=== PATIENT | female | born 1935 | race Caucasian/White ===

== ENCOUNTER 2018-01-28 08:27 | Inpatient (IN) | payer MEDICARE, BC ==
[~2018-01-28] VITALS: Ht 182.9 cm; Wt 93.0 kg
[~2018-01-28 08:27] MED LIST: ATEN25TA PO; CALC-1198 PO; DOCU-141 PO; ESOM40CA52 PO; ESTR1VAG VG; ESZO3TAB27 PO; FURO-145 PO; GLUC1TAB PO; LATA2.5D2 EACHEYE; LOSA100T3 PO; LOSA50TA21 PO; MIRT15TA8 PO; MULT-1168 PO; POTA10TA11 PO; PSYL0.5211 PO; ROSU20TA PO; TRAM50TA2 PO; VENL25TA4 PO; WARF1TAB47 PO; WARF4TAB6 PO; myrbetriq PO
[2018-01-28 09:44] LABS: BASOPHILS # (AUTO) 0.1 /CMM (0.0-0.2); BASOPHILS % (AUTO) 0.5 % (0.0-2.0); EOSINOPHILS # (AUTO) 0.1 /CMM (0.0-0.7); EOSINOPHILS % (AUTO) 0.6 % (0.0-6.0); HEMATOCRIT 39 % (33-45); HEMOGLOBIN 13.4 g/dL (11.5-14.8); LYMPHOCYTES # (AUTO) 0.9 /CMM (0.8-4.8); LYMPHOCYTES % (AUTO) 8.2 % (20.0-44.0); MEAN CORPUSCULAR HEMOGLOBIN 32 PG (26.0-33.0); MEAN CORPUSCULAR HGB CONC 35 g/dl (31.0-36.0); MEAN CORPUSCULAR VOLUME 92 fL (82-100); MONOCYTES # (AUTO) 0.6 /CMM (0.1-1.30); MONOCYTES % (AUTO) 5.3 % (2.0-12.0); NEUTROPHILS # (AUTO) 8.8 /CMM (1.8-8.9); NEUTROPHILS % (AUTO) 85.4 % (43.0-81.0); PLATELET COUNT (AUTO) 157 /CMM (150-450); RDW COEFFICIENT OF VARIATION 13.2 (11.5-15.0); RED BLOOD CELL COUNT(AUTO) 4.21 MIL/uL (4.0-5.2); WHITE BLOOD COUNT (AUTO) 10.5 K/uL (4.3-11.0)
[2018-01-28 09:53] LABS: CALCIUM, SERUM 9.1 mg/dL (8.5-10.1); CARBON DIOXIDE 29 mmol/L (21-32); CHLORIDE 99 mmol/L (98-107); GLUCOSE 138 mg/dL (74-106); POTASSIUM 3.9 mmol/L (3.5-5.1); SODIUM SERUM 135 mmol/L (136-145); UREA NITROGEN, BLOOD 18 mg/dL (7-18)
[2018-01-28 09:58] LABS: INR 2.63 (0.85-1.15)
[2018-01-28 10:02] LABS: TROPONIN I 0.193 ng/mL (0.00-0.056)
[2018-01-28 10:16] LABS: APPEARANCE,URINE Cloudy (CLEAR); BILIRUBIN,URINE Negative (NEGATIVE); BLOOD, URINE Large Ery/uL (NEGATIVE); KETONES,URINE Negative (NEGATIVE); LEUKOCYTE ESTERASE ,URINE Moderate (NEGATIVE); NITRITE, URINE Negative (NEGATIVE); PROTEIN,URINE 100 mg/dl (NEGATIVE); UGLUCOSE Negative (NEGATIVE); UROBILINOGEN,URINE 0.2 EU/dL (0.2)
[2018-01-28 10:17] LABS: COLOR,URINE DARK RED (YELLOW)
[2018-01-28 10:22] LABS: BACTERIA,URINE Rare /HPF (None Seen); RBC,URINE TOO NUMEROUS TO COUN /HPF (0-2); WBC,URINE 81-100 /HPF (0-3)
[2018-01-28 10:23] LABS: SQUAMOUS EPITHELIAL CELL,UR Rare /HPF (None Seen)
[2018-01-28] MEDS ORDERED: ESOM40CA PO (11:11)
[2018-01-28] MEDS ORDERED: ATEN100T PO (11:11)
[2018-01-28] MEDS ORDERED: LAMO25TA5 PO (11:11)
[2018-01-28] MEDS ORDERED: WARF-58 PO (11:11)
[2018-01-28] MEDS ORDERED: DIGO125T PO (11:11)
[2018-01-28] MEDS ORDERED: ONDANSETRON HCL/PF 4 MG/2 ML VIAL IVP PRN (11:30)
[2018-01-28] MEDS ORDERED: MAG HYDROX/AL HYDROX/SIMETH 30 ML UDC PO PRN (11:30)
[2018-01-28] MEDS ORDERED: ACETAMINOPHEN 325 MG TABLET PO PRN (11:30)
[2018-01-28] MEDS ORDERED: HYDROCODONE/APAP 5/325MG 1 EACH TABLET PO PRN (11:30)
[2018-01-28] MEDS ORDERED: TRAMADOL HCL 50 MG TABLET PO PRN (11:30)
[2018-01-28] MEDS ORDERED: Z GUARD REMEDY 2 OZ OINT TP PRN (11:30)
[2018-01-28] MEDS ORDERED: ZOLPIDEM TARTRATE 5 MG TABLET PO PRN (11:30)
[2018-01-28] MEDS ORDERED: ESTRADIOL 1 UNIT VG SCH (11:30)
[2018-01-28] MEDS ORDERED: MAGNESIUM HYDROXIDE 30 ML UDC PO PRN (11:30)
[2018-01-28 12:00] VITALS: BP 136/95
[2018-01-28 12:15] VITALS: BP 136/95
[2018-01-28] MEDS: IV NS 0.9% 1,000 ML IV PRN (13:38)
[2018-01-28 16:00] VITALS: BP 120/80
[2018-01-28] MEDS ORDERED: WARFARIN SODIUM 1 MG TABLET PO SCH (17:00)
[2018-01-28] MEDS: LamoTRIgine 25 MG TABLET PO SCH (17:22)
[2018-01-28] MEDS: DOCUSATE SODIUM 100 MG CAPSULE PO SCH (17:22)
[2018-01-28 20:00] VITALS: BP_SYST 135; BP_SYST 139; BP_SYST 143; BP_SYST 147; BP_DIAS 79; BP_DIAS 90; BP_DIAS 94; BP_DIAS 96
[2018-01-28] MEDS ORDERED: MIRTAZAPINE SOLUTAB 15 MG/UDTABLET TAB.RAPDIS PO SCH (22:00)
[2018-01-29] VITALS: BP 157/80
[2018-01-29 04:00] VITALS: BP 157/93
[2018-01-29 04:38] VITALS: BP 157/93
[2018-01-29] MEDS: IV NS 0.9% 1,000 ML IV PRN (06:30)
[2018-01-29 07:14] LABS: INR 2.42 (0.87-1.13)
[2018-01-29 07:21] LABS: ALANINE AMINOTRANSFERASE 21 U/L (12-78); ALBUMIN 3.2 g/dL (3.4-5.0); ALKALINE PHOSPHATASE 70 U/L (46-116); ASPARTATE AMINOTRANSFERASE 23 U/L (15-37); BILIRUBIN,TOTAL 0.8 mg/dL (0.2-1.0); CALCIUM, SERUM 8.6 mg/dL (8.5-10.1); CARBON DIOXIDE 32 mmol/L (21-32); CHLORIDE 99 mmol/L (98-107); CREATININE 0.7 mg/dL (0.6-1.3); GLUCOSE 115 mg/dL (74-106); MAGNESIUM 1.7 mg/dL (1.8-2.4); PHOSPHORUS 2.4 mg/dL (2.5-4.9); POTASSIUM 3.7 mmol/L (3.5-5.1); SODIUM SERUM 139 mmol/L (136-145); TOTAL PROTEIN, SERUM 6.8 g/dL (6.4-8.2); UREA NITROGEN, BLOOD 17 mg/dL (7-18)
[2018-01-29 07:28] LABS: TROPONIN I 0.104 ng/mL (0.00-0.056)
[2018-01-29] MEDS ORDERED: PANTOPRAZOLE 40 MG TABLET.DR PO SCH (07:30)
[2018-01-29 07:56] LABS: BASOPHILS % (AUTO) 0.2 % (0.0-2.0); EOSINOPHILS # (AUTO) 0.1 /CMM (0.0-0.7); EOSINOPHILS % (AUTO) 0.9 % (0.0-6.0); HEMATOCRIT 35 % (33-45); LYMPHOCYTES # (AUTO) 0.8 /CMM (0.8-4.8); LYMPHOCYTES % (AUTO) 10.7 % (20.0-44.0); MEAN CORPUSCULAR HEMOGLOBIN 32 PG (26.0-33.0); MEAN CORPUSCULAR HGB CONC 34 g/dl (31.0-36.0); MEAN CORPUSCULAR VOLUME 93 fL (82-100); MONOCYTES # (AUTO) 0.5 /CMM (0.1-1.30); MONOCYTES % (AUTO) 6.8 % (2.0-12.0); NEUTROPHILS # (AUTO) 6.2 /CMM (1.8-8.9); NEUTROPHILS % (AUTO) 81.4 % (43.0-81.0); PLATELET COUNT (AUTO) 128 /CMM (150-450); RDW COEFFICIENT OF VARIATION 14.5 (11.5-15.0); RED BLOOD CELL COUNT(AUTO) 3.77 MIL/uL (4.0-5.2); WHITE BLOOD COUNT (AUTO) 7.6 K/uL (4.3-11.0)
[2018-01-29 08:00] VITALS: BP 134/94
[2018-01-29] MEDS ORDERED: Magnesium 1GM/D5W 100ML PREMIX 100 ML IV SCH ×2 (08:09→09:45)
[2018-01-29 08:28] VITALS: BP 134/94
[2018-01-29] MEDS: DOCUSATE SODIUM 100 MG CAPSULE PO SCH (08:43)
[2018-01-29 08:44] VITALS: BP 134/94
[2018-01-29] MEDS: LamoTRIgine 25 MG TABLET PO SCH (08:44)
[2018-01-29] MEDS ORDERED: ASPIRIN 325 MG TABLET PO SCH (09:00)
[2018-01-29] MEDS ORDERED: ATENOLOL 50 MG TABLET PO SCH (09:00)
[2018-01-29] MEDS ORDERED: LATANOPROST EYE DROP 0.005% 2.5 ML BOTTLE EACHEYE SCH (09:00)
[2018-01-29] MEDS ORDERED: K PHOS NEUTRAL 250 MG TABLET PO ONE (09:00)
[2018-01-29] MEDS ORDERED: MAGNESIUM OXIDE 400 MG TABLET PO ONE (09:00)
[2018-01-29] MEDS ORDERED: VENLAFAXINE 25 MG TABLET PO SCH (09:00)
[2018-01-29] MEDS ORDERED: CEPH-570 PO (12:21)
[2018-01-29] MEDS ORDERED: ASPI-605 PO (12:27)
[2018-01-29] MEDS ORDERED: DIGOXIN 0.125 MG TABLET PO SCH (13:00)
[2018-01-29] MEDS ORDERED: ATORVASTATIN 40 MG TABLET PO SCH (22:00)
== END 2018-01-29 13:45 | disposition home or self-care (01) | DRG 689 ==
LOC: ER 08:28 → TELE 11:56 → MED 01-29 10:45
PROVIDERS: ADMIT Internal Medicine; ATTEND Internal Medicine
DX: N39.0 Urinary tract infection, site not specified (principal); I21.A1 Myocardial infarction type 2; N17.9 Acute kidney failure, unspecified; I27.20 Pulmonary hypertension, unspecified; E83.42 Hypomagnesemia; E44.1 Mild protein-calorie malnutrition; I48.91 Unspecified atrial fibrillation; E86.1 Hypovolemia; E87.1 Hypo-osmolality and hyponatremia; W01.0XXA Fall on same level from slipping, tripping and stumbling without subsequent striking against object, initial encounter; E78.5 Hyperlipidemia, unspecified; F03.90 Unspecified dementia, unspecified severity, without behavioral disturbance, psychotic disturbance, mood disturbance, and anxiety; R55 Syncope and collapse; F41.9 Anxiety disorder, unspecified; Z86.73 Personal history of transient ischemic attack (TIA), and cerebral infarction without residual deficits; Z79.01 Long term (current) use of anticoagulants; Y95 Nosocomial condition; F32.9 Major depressive disorder, single episode, unspecified; I10 Essential (primary) hypertension; N32.81 Overactive bladder; Z79.899 Other long term (current) drug therapy; M19.90 Unspecified osteoarthritis, unspecified site; I70.0 Atherosclerosis of aorta; I34.0 Nonrheumatic mitral (valve) insufficiency; M85.80 Other specified disorders of bone density and structure, unspecified site; R26.9 Unspecified abnormalities of gait and mobility; Y93.9 Activity, unspecified; Y92.009 Unspecified place in unspecified non-institutional (private) residence as the place of occurrence of the external cause
CPT/HCPCS: 36415; 70450-TC; 71045-TC; 72110-TC; 73564-TC; 80048-TC; 80053-TC; 81000-TC; 83735-TC; 84100-TC; 84484-TC; 85025-TC; 85610-TC; 85730-TC; 87081-TC; 87086-TC; 93307-TC; A4606; J3475; J7030; Z7610

== ENCOUNTER 2019-06-30 20:30 | Inpatient (IN) | payer MEDICARE, BC ==
[~2019-06-30] VITALS: Ht 182.9 cm; Wt 87.1 kg
[~2019-06-30 20:30] MED LIST changes: +ASPI-605 PO; +ATEN100T PO; -ATEN25TA PO; -CALC-1198 PO; +CEPH-570 PO; +DIGO125T PO; +ESOM40CA PO; -ESOM40CA52 PO; -ESZO3TAB27 PO; -GLUC1TAB PO; +LAMO25TA5 PO; -LOSA100T3 PO; -LOSA50TA21 PO; +LOSA50TA39 PO; +MIRT-73 PO; -MIRT15TA8 PO; -MULT-1168 PO; -PSYL0.5211 PO; -ROSU20TA PO; +ROSU20TA2 PO; +WARF-58 PO; -WARF4TAB6 PO
--- NOTE | 2019-06-30 20:30 | NUR ---
BIB CAREGIVER FROM HOME C/O L SIDED CP RATIATING TO BACK AND L SHOULDER X1 WEEK. PT SIGNED OUT AMA FROM [facility] WITH (+) TROPONIN 1 WEEK AGO. SKI WARM, NONDIAPHORETIC. PT AAOX4 NO ACUTE DISTRESS NOTED, RESP EVEN AND UNLABORED. PLACE PT ON CARDIAC MONITORING, CONTINUOUS POX. ER MD AT BEDSIDE TO EVAL PT WITH ORDERS RECEIVED. WILL CARRY OUT ORDERS.
[2019-06-30] MEDS ORDERED: ASPIRIN 81 MG TAB.CHEW ONE (20:47)
[2019-06-30] MEDS ORDERED: NITROGLYCERIN PACKET 1 GM PACKET ONE (20:47)
--- NOTE | 2019-06-30 20:50 | NUR ---
PT MEDICATED ORDERED.
[2019-06-30 20:54] LABS: BASOPHILS % (AUTO) 0.4 % (0.0-2.0); HEMATOCRIT 35 % (33-45); HEMOGLOBIN 11.9 g/dL (11.5-14.8); LYMPHOCYTES # (AUTO) 1.1 /CMM (0.8-4.8); LYMPHOCYTES % (AUTO) 15.7 % (20.0-44.0); MEAN CORPUSCULAR HGB CONC 34 g/dl (31.0-36.0); MEAN CORPUSCULAR VOLUME 95 fL (82-100); MONOCYTES # (AUTO) 0.5 /CMM (0.1-1.30); MONOCYTES % (AUTO) 7.5 % (2.0-12.0); NEUTROPHILS # (AUTO) 4.7 /CMM (1.8-8.9); NEUTROPHILS % (AUTO) 66.4 % (43.0-81.0); PLATELET COUNT (AUTO) 184 /CMM (150-450); RED BLOOD CELL COUNT(AUTO) 3.72 MIL/uL (4.0-5.2); WHITE BLOOD COUNT (AUTO) 7.2 K/uL (4.3-11.0)
--- NOTE | 2019-06-30 20:54 | NUR ---
PER CAREGIVER, PT WENT AMA FROM [facility] FOR S/P FALL AND +TROPONIN
[2019-06-30] MEDS ORDERED: NITROGLYCERIN PACKET 1 GM PACKET TD ONE (21:00)
[2019-06-30] MEDS ORDERED: ASPIRIN 81 MG TAB.CHEW PO ONE (21:00)
[2019-06-30] MEDS ORDERED: ASPI-1169 PO (21:01)
[2019-06-30] MEDS ORDERED: ISOS10TA2 PO (21:01)
[2019-06-30] MEDS ORDERED: HYDR-4384 PO (21:01)
[2019-06-30] MEDS ORDERED: BENA10TA11 PO (21:01)
[2019-06-30 21:02] LABS: CALCIUM, SERUM 9.4 mg/dL (8.5-10.1); CHLORIDE 99 mmol/L (98-107); CREATININE 0.8 mg/dL (0.6-1.3); GLUCOSE 113 mg/dL (74-106); POTASSIUM 3.8 mmol/L (3.5-5.1); SODIUM SERUM 143 mmol/L (136-145); UREA NITROGEN, BLOOD 15 mg/dL (7-18)
[2019-06-30 21:08] LABS: ALANINE AMINOTRANSFERASE 25 U/L (12-78); ALBUMIN 3.4 g/dL (3.4-5.0); ALKALINE PHOSPHATASE 100 U/L (46-116); ASPARTATE AMINOTRANSFERASE 26 U/L (15-37); BILIRUBIN,DIRECT 0.2 mg/dL (0.0-0.2); BILIRUBIN,TOTAL 0.6 mg/dL (0.2-1.0); TOTAL PROTEIN, SERUM 7.2 g/dL (6.4-8.2)
[2019-06-30 21:14] LABS: CARBON DIOXIDE 40 mmol/L (21-32)
--- NOTE | 2019-06-30 21:59 | NUR ---
REPORT GIVEN TO MILY SPENCER FOR JAVIER PT WILL BE TRANSPORTED TO 3RD FLOOR VIA ACLS PROTOCOL
[2019-06-30] MEDS ORDERED: ZOLPIDEM TARTRATE 5 MG TABLET PO PRN (22:00)
[2019-06-30] MEDS ORDERED: ONDANSETRON HCL/PF 4 MG/2 ML VIAL IVP PRN (22:00)
[2019-06-30] MEDS ORDERED: HYDROCODONE/APAP 10/325MG 1 EA TABLET PO PRN (22:00)
[2019-06-30] MEDS ORDERED: ACETAMINOPHEN 325 MG TABLET PO PRN (22:00)
[2019-06-30] MEDS ORDERED: HYDROCODONE/APAP 5/325MG 1 EACH TABLET PO PRN (22:00)
[2019-06-30] MEDS ORDERED: MORPHINE SULFATE INJ 2 MG/ML DISP.SYRIN IV PRN (22:00)
[2019-06-30] MEDS ORDERED: MAG HYDROX/AL HYDROX/SIMETH 30 ML UDC PO PRN (22:00)
[2019-06-30] MEDS ORDERED: MAGNESIUM HYDROXIDE 30 ML UDC PO PRN (22:00)
[2019-06-30] MEDS ORDERED: Z GUARD REMEDY 2 OZ OINT TP PRN (22:00)
[2019-06-30 22:10] VITALS: BP 132/61
[2019-06-30 22:30] VITALS: BP 132/61
--- NOTE | 2019-06-30 22:45 | NUR ---
RN NOTES PM SHIFT ADMITTED PATIENT FROM ED DUE TO CHEST PAIN, RADIATING TO LEFT SHOULDER X1 WEEK. ALERT AND ORIENTED X3, WITH FORGETFULNESS, ON 2LPM VIA NC, LUNGS ON AUSCULTATION HAS DIMINISHED LUNG SOUNDS, CHEST PAIN OF 6/10, RECEIVED ASA 81 MG PO AND NITROBID IN ED WITHOUT RELIEF. PATIENT IS CALM, NOT IN APPARENT DISTRESS, NO SOB, ABLE TO TALK IN FULL SENTENCES. PER CAREGIVER/DTR IN LAW, PATIENT HAD MULTIPLE FALLS AT HOME, HAD BACK OF HEAD ABRASION, NO FRACTURES, WITH RIGHT HIP BRUISE AND LEFT ELBOW BRUISE, BOTH RESOLVING, UNSTEADY GAIT, AMBULATES USING ONE POINT CANE. SKIN ASSESSMENT PERFORMED, EDUCATED ON FALL PRECAUTION, AND TO CALL FOR ASSISTANCE WHEN USING THE BEDSIDE COMMODE. PERSONAL BELONGINGS AND CALL LIGHT WITHIN REACH.
[2019-06-30] MEDS ORDERED: MIRTAZAPINE SOLUTAB 15 MG/UDTABLET TAB.RAPDIS PO SCH (23:00)
[2019-06-30] MEDS: MIRTAZAPINE 15 MG TABLET PO SCH (23:36)
[2019-07-01] VITALS: BP 157/83
--- NOTE | 2019-07-01 02:21 | NUR ---
RN NOTES PATIENT REQUESTING PAIN MEDICATION, OFFERED MORPHINE, PATIENT AGREED, TOOK OUT MORPHINE THEN PATIENT CHANGED MIND, WANTS TO TRY NORCO FIRST. WHILE TAKING MORPHINE, RN ERRONEOUSLY PUT 0.5 DOSE INSTEAD OF 1 MG. WASTED MORPHINE WITH JOHANNA ANTUNEZ
[2019-07-01 04:00] VITALS: BP 143/85
--- NOTE | 2019-07-01 04:22 | NUR ---
RN NOTES PATIENT REFUSED ZOSYN TO CONTINUE INFUSING, PER PATIENT, IF RN DID NOT REMOVE IV, PATIENT WILL PULL OUT IV. ZOSYN INFUSION DISCONTINUED. INFUSED AMOUNT 25 ML Addendum: 07/01/19 at 0424 by UMER NIETO RN PLEASE DISREGARD ABOVE NOTES, NOT FOR PATIENT
[2019-07-01] MEDS: POTASSIUM CHLORIDE 10 MEQ TABLET.SA PO SCH ×2 (06:17→16:53)
--- NOTE | 2019-07-01 06:31 | NUR ---
RN NOTES, PM SHIFT PATIENT IS ALERT AND ORIENTED X3, FORGETFUL, 2LPM VIA NC, COMPLAINING OF CHEST PAIN, WITH MODERATE RELIEF WITH NORCO. ASSISTED TO BSC, UNSTEADY GAIT, FALL PRECAUTION, FOR CARDIAC CONSULT WITH DR. LUND IN AM, SERIAL TROPONIN, WITH VAUES TRENDING DOWN.
--- NOTE | 2019-07-01 07:47 | NUR ---
STAFF COMMAND AND CONTROL OFFICER OPENING NOTES RECEIVED PT AWAKE IN BED IN NO ACUTE SIGNS OF DISTRESS. A/O X3. VERBALLY RESPONSIVE WITH C/O MILD AND TOLERABLE CHEST PAIN. ON 02 VIA N/C @ 2LPM, BREATHING EVEN AND UNLABORED. ON TELEMONITORING WITH CURRENT READING OF AFIB WITH HR ON THE 70'S. IV ACCESS ON RAC G#2O INTACT, PATENT AND FLUSHES WELL. SAFETY MEASURES IN PLACE. BED LOW AND LOCKED. SIDE RAILS UP X2. CALL LIGHT WITHIN REACH. WILL CONTINUE TO MONITOR PT ACCORDINGLY.
[2019-07-01 07:50] LABS: BASOPHILS % (AUTO) 0.6 % (0.0-2.0); EOSINOPHILS % (AUTO) 14.1 % (0.0-6.0); HEMATOCRIT 33 % (33-45); HEMOGLOBIN 11.3 g/dL (11.5-14.8); LYMPHOCYTES # (AUTO) 1.2 /CMM (0.8-4.8); LYMPHOCYTES % (AUTO) 19.8 % (20.0-44.0); MEAN CORPUSCULAR HGB CONC 34 g/dl (31.0-36.0); MEAN CORPUSCULAR VOLUME 95 fL (82-100); MONOCYTES # (AUTO) 0.5 /CMM (0.1-1.30); MONOCYTES % (AUTO) 8.4 % (2.0-12.0); NEUTROPHILS # (AUTO) 3.5 /CMM (1.8-8.9); NEUTROPHILS % (AUTO) 57.1 % (43.0-81.0); PLATELET COUNT (AUTO) 151 /CMM (150-450); RED BLOOD CELL COUNT(AUTO) 3.53 MIL/uL (4.0-5.2); WHITE BLOOD COUNT (AUTO) 6.2 K/uL (4.3-11.0)
[2019-07-01 08:00] VITALS: BP 139/73
[2019-07-01 08:02] LABS: ALANINE AMINOTRANSFERASE 24 U/L (12-78); ALBUMIN 3.1 g/dL (3.4-5.0); ALKALINE PHOSPHATASE 78 U/L (46-116); ASPARTATE AMINOTRANSFERASE 23 U/L (15-37); BILIRUBIN,TOTAL 0.6 mg/dL (0.2-1.0); CALCIUM, SERUM 9.1 mg/dL (8.5-10.1); CARBON DIOXIDE 36 mmol/L (21-32); CHLORIDE 100 mmol/L (98-107); CREATININE 0.7 mg/dL (0.6-1.3); GLUCOSE 91 mg/dL (74-106); MAGNESIUM 1.8 mg/dL (1.8-2.4); PHOSPHORUS 3.6 mg/dL (2.5-4.9); POTASSIUM 3.6 mmol/L (3.5-5.1); SODIUM SERUM 140 mmol/L (136-145); TOTAL PROTEIN, SERUM 6.6 g/dL (6.4-8.2); UREA NITROGEN, BLOOD 16 mg/dL (7-18)
[2019-07-01 08:04] LABS: CHOLESTEROL 104 mg/dL (<200); HDL CHOLESTEROL 44 mg/dL (40-60); LDL 53 mg/dL (0-99); THYROID STIMULATING HORMONE 1.106 uIU/mL (0.358-3.74); TRIGLYCERIDES 68 mg/dL (30-150)
[2019-07-01] MEDS: PANTOPRAZOLE 40 MG TABLET.DR PO SCH (08:49)
[2019-07-01] MEDS ORDERED: ASPIRIN 81 MG TAB.CHEW PO SCH (09:00)
[2019-07-01] MEDS ORDERED: BENAZEPRIL HCL 10 MG TABLET PO SCH (09:00)
[2019-07-01] MEDS ORDERED: Medication Not On Formulary EA (Esomeprazole Mag Trihydrate (Nexium) 40 MG) PO SCH (09:00)
[2019-07-01] MEDS: DOCUSATE SODIUM 100 MG CAPSULE PO SCH ×2 (10:16→16:53)
[2019-07-01] MEDS: ISOSORBIDE DINITRATE (10MG) 10 MG TABLET PO SCH ×2 (10:17→16:53)
[2019-07-01] MEDS: VENLAFAXINE 37.5 MG TABLET PO SCH (10:18)
[2019-07-01] MEDS: ATENOLOL 50 MG TABLET PO SCH (10:19)
[2019-07-01] MEDS: LamoTRIgine 25 MG TABLET PO SCH ×2 (10:19→16:53)
[2019-07-01 10:37] LABS: IRON, SERUM 53 ug/dl (50-175); TOTAL IRON BINDING CAPACITY 305 ug/dl (250-450)
[2019-07-01 10:40] LABS: FERRITIN 127 ng/mL (8-388)
[2019-07-01] MEDS: FUROSEMIDE 20 MG TABLET PO SCH (10:49)
--- NOTE | 2019-07-01 11:56 | NUR ---
RN NOTES PATIENT FOR CT ANGIO HEART WITH 3D IMAGE TODAY, MD EXPLAINED PROCEDURE TO PATIENT AND VERBALIZED UNDERSTANDING. CONSENT SIGNED AND FILED ON CHART.
[2019-07-01 12:00] VITALS: BP 142/78
[2019-07-01] MEDS ORDERED: IOHEXOL-350 100 ML VIAL IV ONE ×2 (14:47→15:40)
[2019-07-01] MEDS ORDERED: IV NS 0.9% 250 ML IV ONE ×2 (14:47→15:40)
[2019-07-01] MEDS ORDERED: CT SWABBABLE VALVE TRANS SET 1 EA INFUS.SET MC ONE ×2 (14:47→15:40)
--- NOTE | 2019-07-01 14:58 | NUR ---
RN NOTES PATIENT BROUGHT DOWN VIA BED TO RADIOLOGY FOR CTA.
[2019-07-01] MEDS ORDERED: METOPROLOL TARTRATE INJ 5 MG/5 ML AMPUL ONE (15:13)
[2019-07-01 16:00] VITALS: BP 137/74
--- NOTE | 2019-07-01 16:40 | NUR ---
RN NOTES PT RETURNED FROM CTA, NO SIGNS OF DISTRESS NOTED. WILL CONTINUE TO MONITOR.
[2019-07-01] MEDS ORDERED: WARFARIN SODIUM 7.5 MG TABLET PO SCH (17:00)
--- NOTE | 2019-07-01 18:32 | NUR ---
SCALPER OPERATOR CLOSING NOTES PATIENT AWAKE AND RESTING IN BED, HEAD OF THE BED ELEVATED. A/O X3. ABLE TO MAKE NEEDS KNOWN. ON 02 VIA N/C @ 2LPM, BREATHING EVEN AND UNLABORED. IV ACCESS ON RAC G#2O INTACT, PATENT AND FLUSHES WELL. SAFETY MEASURES IN PLACE. BED LOW AND LOCKED. SIDE RAILS UP X2. CALL LIGHT WITHIN REACH. ALL NEEDS AND CARE ATTENDED WELL. WILL ENDORSED TO GUT CARRIER NURSE FOR JAVIER.
--- NOTE | 2019-07-01 19:25 | NUR ---
RN OPEN NOTES RECEIVED PATIENT AWAKE IN BED. A/OX3. NO SIGNS OF DISTRESS OR DISCOMFORT. BREATHING EVEN AND UNLABORED. ON 2LPM O2 VIA NC. ON TELE MONITORING WITH AFIB 75 NOTED. IV ACCESS IN LAC AND RAC, PATENT AND INTACT, NO SIGNS OF REDNESS OR INFILTRATION. BED IN LOW LOCKED POSITION WITH SIDE RAILS X3. CALL LIGHT WITHIN REACH. WILL CONTINUE TO MONITOR.
[2019-07-01 20:45] VITALS: BP 118/64
[2019-07-01] MEDS: LATANOPROST EYE DROP 0.005% 2.5 ML BOTTLE EACHEYE SCH (22:00)
[2019-07-01] MEDS: ATORVASTATIN 10 MG TABLET PO SCH (22:20)
[2019-07-01] MEDS: MIRTAZAPINE 15 MG TABLET PO SCH (22:20)
[2019-07-02 00:36] VITALS: BP 148/80
[2019-07-02 04:00] VITALS: BP 149/78
--- NOTE | 2019-07-02 07:20 | NUR ---
SHED BOSS OPENING NOTES RECEIVED PT IN BED, AWAKE, A/O X3. PT TOLERATING RA, WITH NO ACUTE RESPIRATORY DISTRESS NOTED. ON TELEMONITORING CONTROLLED AFIB 92 HR. PT DENIES ANY PAIN OR DISCOMFORT AT THIS TIME. PT ALSO DENIES ANY QUESTIONS OR CONCERN. PIV RAC G20 SL AND LAC G20 SL, FLUSHED WITH NS, INTACT AND OPERATIONAL. PT KEPT COMFORTABLE. PT'S BED IN LOWEST, LOCKED POSITION SR X3. CALL LIGHT KEPT WITHIN REACH. WILL CONTINUE PLAN OF CARE.
--- NOTE | 2019-07-02 07:37 | NUR ---
RN CLOSING NOTES PATIENT AWAKE IN BED. A/OX3. NO SIGNS OF DISTRESS OR DISCOMFORT. BREATHING EVEN AND UNLABORED. ON 2LPM O2 VIA NC. ON TELE MONITORING WITH AFIB 79 NOTED. IV ACCESS IN LAC AND RAC, PATENT AND INTACT, NO SIGNS OF REDNESS OR INFILTRATION. ALL NEEDS MET. NO SIGNIFICANT CHANGES THROUGH THE NIGHT. BED IN LOW LOCKED POSITION WITH SIDE RAILS X3. CALL LIGHT WITHIN REACH. ENDORSED TO AM SHIFT FOR JAVIER.
[2019-07-02 08:00] VITALS: BP 140/85
[2019-07-02] MEDS: POTASSIUM CHLORIDE 10 MEQ TABLET.SA PO SCH ×2 (08:05→16:22)
[2019-07-02] MEDS: DOCUSATE SODIUM 100 MG CAPSULE PO SCH ×2 (08:05→16:23)
[2019-07-02] MEDS: PANTOPRAZOLE 40 MG TABLET.DR PO SCH (08:05)
[2019-07-02] MEDS: LamoTRIgine 25 MG TABLET PO SCH ×2 (08:05→16:23)
[2019-07-02] MEDS: FUROSEMIDE 20 MG TABLET PO SCH (08:06)
[2019-07-02] MEDS: VENLAFAXINE 37.5 MG TABLET PO SCH (08:06)
[2019-07-02] MEDS: ATENOLOL 50 MG TABLET PO SCH (08:09)
[2019-07-02] MEDS: ISOSORBIDE DINITRATE (10MG) 10 MG TABLET PO SCH ×2 (08:10→16:22)
[2019-07-02] MEDS ORDERED: BENAZEPRIL HCL 10 MG TABLET PO SCH (09:00)
[2019-07-02] MEDS ORDERED: DIGOXIN 0.125 MG TABLET PO SCH (13:00)
[2019-07-02 16:00] VITALS: BP 123/84
[2019-07-02] MEDS ORDERED: WARFARIN SODIUM 5 MG TABLET PO SCH (17:00)
--- NOTE | 2019-07-02 18:30 | NUR ---
MS RN CLOSING NOTES PT IN BED, AWAKE, A/O X3. PT ON SUPPLEMENTARY OXYGEN AT 2L VIA NC, WITH NO ACUTE RESPIRATORY DISTRESS NOTED. PT DENIES ANY PAIN OR DISCOMFORT AT THIS TIME. ALL NEEDS AND CARE ATTENDED. PIV RAC G20 SL AND LAC G20 SL, FLUSHED WITH NS, INTACT AND OPERATIONAL. PT KEPT COMFORTABLE. PT'S BED IN LOWEST, LOCKED POSITION SR X3. CALL LIGHT KEPT WITHIN REACH. WILL ENDORSE TO INCOMING SHIFT FOR JAVIER AND PLAN OF TRANSFER TO [facility].
--- NOTE | 2019-07-02 19:30 | NUR ---
RN MS OPENING NOTES RECEIVED PATIENT IN BED AWAKE, ALERT AND ORIENTED X3, VERBALLY RESPONSIVE, ABLE TO MAKE NEEDS KNOWN. BREATHING EVEN AND UNLABORED. NO SOB NOTED. ON 2LPM VIA NC. DENIES ANY PAIN OR DISCOMFORT. NO CHEST PAIN. NO N/V. IV ON RIGHT AND LEFT AC INTACT AND PATENT. SKIN DRY WARM TO TOUCH. AFEBRILE. ALL OTHER NEEDS ATTENDED TO. SAFETY MEASURES IN PLACE. CALL LIGHT WITHIN REACH. ANTICIPATING TRANSFER TO [facility] FOR CARDIAC CATH. WILL CONTINUE TO MONITOR.
[2019-07-02 20:31] VITALS: BP 124/70
--- NOTE | 2019-07-02 20:46 | NUR ---
RN MS NOTES ATTEMPTED TO GIVE REPORT TO RECEIVING NURSE AT [place] BUT CURRENTLY UNAVAILABLE DUE TO NURSE ATTENDING TO PATIENT. INSTRUCTED TO CALL BACK IN ABOUT 10-15 MINUTES.
--- NOTE | 2019-07-02 21:08 | NUR ---
RN MS NOTES 2ND ATTEMPT TO GIVE REPORT TO RECEIVING NURSE AT [place] BUT CURRENTLY UNAVAILABLE DUE TO NURSE STILL ATTENDING TO A PATIENT. GAVE [facility]S NUMBER INSTEAD AND INSTRUCTED THEM TO CALL ME WHEN READY FOR REPORT. ETA FOR PICK IS [phone]
--- NOTE | 2019-07-02 21:16 | NUR ---
RN MS NOTES GAVE REPORT TO JOHANNA KENNY AT [facility].
[2019-07-02] MEDS: LATANOPROST EYE DROP 0.005% 2.5 ML BOTTLE EACHEYE SCH (21:29)
[2019-07-02] MEDS: ATORVASTATIN 10 MG TABLET PO SCH (21:31)
[2019-07-02] MEDS: MIRTAZAPINE 15 MG TABLET PO SCH (21:31)
--- NOTE | 2019-07-02 22:16 | NUR ---
RN MS DISCHARGE NOTES PATIENT DISCHARGED/TRANSFERRED TO [facility] AT [facility]16 FOR CARDIAC CATH. VSS. PATIENT IS ALERT AND ORIENTED X3, VERBALLY RESPONSIVE, ABLE TO MAKE NEEDS KNOWN. BREATHING EVEN AND UNLABORED. NO SOB NOTED. ON 2LPM VIA NC. DENIES ANY PAIN OR DISCOMFORT. NO CHEST PAIN. NO N/V. IV ON BOTH RIGHT AC AND LEFT AC REMAINS INTACT AND PATENT AND WILL STAY PER INSTRUCTIONS FROM RECEIVING NURSE AT [facility]. SKIN KEPT CLEAN AND DRY. PICTURES TAKEN AND PLACED IN CHART. NO NEW SKIN ISSUES NOTED. ALL BELONGINGS ACCOUNTED FOR, WITH INVENTORY LIST SIGNED AND PLACED IN CHART. DISCHARGE INSTRUCTIONS GIVEN TO PATIENT AND DAUGHTER IN LAW (TONY) WITH ALL DISCHARGE AND TRANSFER PAPERWORKS SIGNED BY PATIENT. HOME MEDS SENT HOME WITH DAUGHTER IN LAW. ALL OTHER NEEDS ATTENDED TO. PATIENT LEFT IN STABLE CONDITION. WILL BE GOING TO ROOM 105 AT [facility]. RECEIVING NURSE IS JOHANNA KENNY.
== END 2019-07-02 22:10 | disposition short-term general hospital (02) | DRG 311 ==
LOC: ER 20:34 → TELE 21:32 → MED 07-02 12:26
PROVIDERS: ADMIT Nurse Practitioner Acute Care; ATTEND Internal Medicine
DX: I24.0 Acute coronary thrombosis not resulting in myocardial infarction (principal); D68.59 Other primary thrombophilia; R73.9 Hyperglycemia, unspecified; N32.81 Overactive bladder; F32.9 Major depressive disorder, single episode, unspecified; Z86.73 Personal history of transient ischemic attack (TIA), and cerebral infarction without residual deficits; I10 Essential (primary) hypertension; Z91.19 Patient's noncompliance with other medical treatment and regimen; Z79.01 Long term (current) use of anticoagulants; I48.2 Chronic atrial fibrillation
CPT/HCPCS: 36415; 71045-TC; 75574; 80048-TC; 80053-TC; 80061-TC; 80076-TC; 80162-TC; 82728-TC; 83540-TC; 83735-TC; 84100-TC; 84443-TC; 84484-TC; 85025-TC; 85610-TC; 85730-TC; 87081-TC; 93307-TC; A6253; G0378; J2270; J3490; J7050; Q9967

== ENCOUNTER 2019-11-10 10:47 | Inpatient (IN) | payer MEDICARE, BC ==
[~2019-11-10] VITALS: Ht 182.9 cm; Wt 83.9 kg
[~2019-11-10 10:47] MED LIST changes: +ASPI-1169 PO; -ASPI-605 PO; +BENA10TA74 PO; -CEPH-570 PO; +HYDR-4384 PO; +ISOS10TA2 PO; -LOSA50TA39 PO; -TRAM50TA2 PO
[2019-11-10 11:27] LABS: BASOPHILS # (AUTO) 0.1 /CMM (0.0-0.2); BASOPHILS % (AUTO) 0.9 % (0.0-2.0); EOSINOPHILS % (AUTO) 1.9 % (0.0-6.0); HEMATOCRIT 36 % (33-45); HEMOGLOBIN 11.7 g/dL (11.5-14.8); LYMPHOCYTES # (AUTO) 1.2 /CMM (0.8-4.8); LYMPHOCYTES % (AUTO) 13.9 % (20.0-44.0); MEAN CORPUSCULAR HGB CONC 33 g/dl (31.0-36.0); MEAN CORPUSCULAR VOLUME 95 fL (82-100); MONOCYTES # (AUTO) 0.6 /CMM (0.1-1.30); MONOCYTES % (AUTO) 7.5 % (2.0-12.0); NEUTROPHILS # (AUTO) 6.5 /CMM (1.8-8.9); NEUTROPHILS % (AUTO) 75.8 % (43.0-81.0); PLATELET COUNT (AUTO) 138 /CMM (150-450); RED BLOOD CELL COUNT(AUTO) 3.77 MIL/uL (4.0-5.2); WHITE BLOOD COUNT (AUTO) 8.5 K/uL (4.3-11.0)
--- NOTE | 2019-11-10 11:32 | NUR ---
wheeled patient via rney for ct scan
[2019-11-10 11:47] LABS: ALANINE AMINOTRANSFERASE 25 U/L (12-78); ALBUMIN 3.4 g/dL (3.4-5.0); ALKALINE PHOSPHATASE 85 U/L (46-116); ASPARTATE AMINOTRANSFERASE 31 U/L (15-37); BILIRUBIN,DIRECT 0.1 mg/dL (0.0-0.2); BILIRUBIN,TOTAL 0.5 mg/dL (0.2-1.0); CALCIUM, SERUM 9.6 mg/dL (8.5-10.1); CARBON DIOXIDE 36 mmol/L (21-32); CHLORIDE 101 mmol/L (98-107); CREATININE 0.8 mg/dL (0.6-1.3); GLUCOSE 107 mg/dL (74-106); POTASSIUM 4.4 mmol/L (3.5-5.1); SODIUM SERUM 141 mmol/L (136-145); TOTAL PROTEIN, SERUM 7.1 g/dL (6.4-8.2); UREA NITROGEN, BLOOD 19 mg/dL (7-18)
--- NOTE | 2019-11-10 11:49 | NUR ---
patient came back from CT
--- NOTE | 2019-11-10 12:32 | NUR ---
urine collected and sent to lab
[2019-11-10 12:35] LABS: APPEARANCE,URINE Turbid (CLEAR); BILIRUBIN,URINE SMALL (NEGATIVE); BLOOD, URINE Large Ery/uL (NEGATIVE); COLOR,URINE Red (YELLOW); KETONES,URINE Negative (NEGATIVE); LEUKOCYTE ESTERASE ,URINE Large (NEGATIVE); NITRITE, URINE Negative (NEGATIVE); PH,URINE 8.5 (5.0-8.0); PROTEIN,URINE 100 mg/dl (NEGATIVE); UGLUCOSE Negative (NEGATIVE); UROBILINOGEN,URINE 0.2 EU/dL (0.2)
--- NOTE | 2019-11-10 12:54 | NUR ---
Dr. Rodriguez at bedside and spoke to the patient in regards with CT result. Will continue to monitor accordingly.
--- NOTE | 2019-11-10 12:58 | NUR ---
CALLED [facility], LIANET MERCADO PAGED
[2019-11-10 12:59] LABS: RBC,URINE TOO NUMEROUS TO COUN /HPF (0-2); WBC,URINE 51-80 /HPF (0-3)
[2019-11-10 13:00] LABS: BACTERIA,URINE None seen /HPF (None Seen); RED BLOOD CELL CASTS,URINE Moderate /LPF (None Seen); SQUAMOUS EPITHELIAL CELL,UR None Seen /HPF (None Seen)
--- NOTE | 2019-11-10 13:07 | NUR ---
CALLED [facility], PAGED HARMAN CARBONE FOR ADMISSION
--- NOTE | 2019-11-10 13:21 | NUR ---
CALLED NURSING SUP FOR MEDSURG BED
[2019-11-10] MEDS ORDERED: CALC1WAF4 PO (13:30)
[2019-11-10] MEDS ORDERED: OMEG1CAP PO (13:30)
[2019-11-10] MEDS ORDERED: POLY17PO4 PO (13:30)
[2019-11-10] MEDS ORDERED: PSYL1PAC8 PO (13:30)
[2019-11-10] MEDS ORDERED: CEFTRIAXONE 1GM BAG (ER ONLY) 1 GM/50 ML PIGGYBACK IV ONE (13:30)
[2019-11-10] MEDS ORDERED: GLUC1TAB PO (13:30)
[2019-11-10] MEDS ORDERED: MULT-1160 PO (13:30)
[2019-11-10] MEDS ORDERED: CHOL200026 PO (13:30)
[2019-11-10] MEDS ORDERED: BIOSIL PO (13:30)
[2019-11-10] MEDS ORDERED: NITR0.4T48 SL (13:30)
[2019-11-10] MEDS ORDERED: TRAM50TA2 PO (13:30)
--- NOTE | 2019-11-10 13:30 | NUR ---
CALLED [facility], PAGED LIANET MERCADO
--- NOTE | 2019-11-10 13:34 | NUR ---
CALLED [facility], PAGED RAF
[2019-11-10] MEDS ORDERED: CEFTRIAXONE 1GM BAG (ER ONLY) 50 ML IV ONE (13:41)
--- NOTE | 2019-11-10 14:16 | NUR ---
205-1 [facility]
--- NOTE | 2019-11-10 14:21 | NUR ---
report given to Bhavesh SPENCER for choco.
--- NOTE | 2019-11-10 14:35 | NUR ---
Received patient awake alert and oriented x3, family member at bedside. Patient able to walk to bathroom with assistance. IV line to the left AC g20 infusing Rocephin.Patient on 2l o2 via nasal canula (pt uses at home also). Breathing unlabored and even. No distress noted,denies pain. Skin inspected , and intact. Patient has b/l foot edema (refused pictures). Patient oriented to room and unit, educated to use call light. Patient verbalized understanding. Late lunch provided. Patient comfortable placed in bed, b/l leg offloaded. Admitting orders received. Will continue to monitor.
--- NOTE | 2019-11-10 14:38 | NUR ---
wheeled patient via gurney going to [facility]. RN at bedside to assume care.
[2019-11-10] MEDS ORDERED: IV NS 0.9% 1,000 ML IV PRN (14:44)
[2019-11-10] MEDS ORDERED: MAGNESIUM HYDROXIDE 30 ML UDC PO PRN (15:00)
[2019-11-10] MEDS ORDERED: MAG HYDROX/AL HYDROX/SIMETH 30 ML UDC PO PRN (15:00)
[2019-11-10] MEDS ORDERED: ACETAMINOPHEN 325 MG TABLET PO PRN (15:00)
[2019-11-10] MEDS ORDERED: MORPHINE SULFATE INJ 2 MG/ML DISP.SYRIN IV PRN (15:00)
[2019-11-10] MEDS ORDERED: HYDROCODONE/APAP 5/325MG 1 EACH TABLET PO PRN (15:00)
[2019-11-10] MEDS ORDERED: ONDANSETRON HCL/PF 4 MG/2 ML VIAL IVP PRN (15:00)
[2019-11-10] MEDS ORDERED: Z GUARD REMEDY 2 OZ OINT TP PRN (15:00)
[2019-11-10 16:00] VITALS: BP 140/87
--- NOTE | 2019-11-10 16:18 | NUR ---
Paged admitting YACHT MASTER Sunny for med recon be done.
--- NOTE | 2019-11-10 19:05 | NUR ---
Patient resting in bed. All needs attended. Will endorse to next shift for JAVIER
--- NOTE | 2019-11-10 19:10 | NUR ---
MS RN OPENING NOTES Received patient A/O x 4, awake on bed, on RA, no s/sx of discomfort noted at this time. Discussed with patient the POC for the night, informed patient MD is aware of her medication list per AM RN, still for med recon. Kept on bed clean, dry and comfortable. Call light within easy reach. On fall and aspiration precautions. Will continue to monitor accordingly.
[2019-11-10 20:00] VITALS: BP 147/72
[2019-11-10] MEDS: ZOLPIDEM TARTRATE 5 MG TABLET PO PRN (21:00)
--- NOTE | 2019-11-10 21:15 | NUR ---
MS RN NOTES Patient requested for sleeping pill, administered as ordered. Educated patient on the importance of maintaining oral hydration, offered cranberry juice and ensure water within easy reach. Patient verbalized understanding. Patient refused IVF at this time. Will continue to monitor accordingly.
[2019-11-11 06:19] LABS: BASOPHILS % (AUTO) 0.3 % (0.0-2.0); EOSINOPHILS % (AUTO) 2.2 % (0.0-6.0); HEMATOCRIT 34 % (33-45); HEMOGLOBIN 11.3 g/dL (11.5-14.8); LYMPHOCYTES # (AUTO) 1.9 /CMM (0.8-4.8); LYMPHOCYTES % (AUTO) 21.9 % (20.0-44.0); MEAN CORPUSCULAR HGB CONC 33 g/dl (31.0-36.0); MEAN CORPUSCULAR VOLUME 93 fL (82-100); MONOCYTES # (AUTO) 0.7 /CMM (0.1-1.30); MONOCYTES % (AUTO) 8.3 % (2.0-12.0); NEUTROPHILS # (AUTO) 5.8 /CMM (1.8-8.9); NEUTROPHILS % (AUTO) 67.3 % (43.0-81.0); PLATELET COUNT (AUTO) 140 /CMM (150-450); RED BLOOD CELL COUNT(AUTO) 3.65 MIL/uL (4.0-5.2); WHITE BLOOD COUNT (AUTO) 8.6 K/uL (4.3-11.0)
[2019-11-11 06:29] LABS: ALBUMIN 3.2 g/dL (3.4-5.0); BILIRUBIN,TOTAL 0.6 mg/dL (0.2-1.0); CALCIUM, SERUM 9.2 mg/dL (8.5-10.1); CREATININE 0.7 mg/dL (0.6-1.3); MAGNESIUM 1.8 mg/dL (1.8-2.4); PHOSPHORUS 3.2 mg/dL (2.5-4.9); TOTAL PROTEIN, SERUM 6.7 g/dL (6.4-8.2)
--- NOTE | 2019-11-11 06:42 | NUR ---
MS RN CLOSING NOTES Patient asleep, easily awaken. On RA, no SOB/respiratory stress noted. No complaints of pain at this time. Due meds given as ordered. All nursing needs attended. On fall and aspiration precautions. Endorsed to the next shift.
[2019-11-11 06:47] LABS: THYROID STIMULATING HORMONE 1.812 uIU/mL (0.358-3.74)
[2019-11-11 08:00] VITALS: BP 140/72
--- NOTE | 2019-11-11 08:00 | NUR ---
MS RN OPENING NOTES Received patient A/O x 4, awake on bed, on RA, no s/sx of discomfort noted at this time. Informed patient MD is aware of her medication list med recon needed to be done.Kept on bed clean, dry and comfortable. Call light within easy reach. On fall and aspiration precautions. Will continue to monitor accordingly. Seen by Dr Perkins and Dr Bowser.Ambulated with PT using FWW.Notified Dr Bowser with P.T ambulating pt using FWW tolerating well with O2. Pt is very eager to go home.
--- NOTE | 2019-11-11 14:00 | NUR ---
PT REFUSED TO BE CONNECTED TO HER IV PUMP DUE TO KEEPS ON BEEPING -PT KEEPS BENDING HER ARM AND FORGETS SHE HAS IV PUMP.
[2019-11-11] MEDS: CEFTRIAXONE 1 G in IV D5W 50 ML IV SCH (14:03)
--- NOTE | 2019-11-11 14:30 | NUR ---
INSTRUCTED PT TO KEEP DRINKING LOTS OF FLUIDS. PT AGREED.
[2019-11-11 16:00] VITALS: BP 136/89
--- NOTE | 2019-11-11 18:14 | NUR ---
PT REFUSED TO BE CONNECTED WITH HER IVF INFUSION OF NS INSPITE OF EXPLAINING ITS RISKS AND BENEFITS.
--- NOTE | 2019-11-11 19:15 | NUR ---
MS RN OPENING NOTES Received patient on bed on RA, no s/sx of discomfort noted at this time. Kept on bed clean, dry and comfortable. Call light within easy reach. On fall and aspiration precautions. Will continue to monitor accordingly.
[2019-11-11 20:13] VITALS: BP 149/90
[2019-11-11] MEDS ORDERED: TRAMADOL HCL 50 MG TABLET PO PRN (21:00)
[2019-11-11] MEDS ORDERED: HOME MED MISCELLANEOUS XX SCH (21:00)
[2019-11-11] MEDS: ZOLPIDEM TARTRATE 5 MG TABLET PO PRN (21:22)
[2019-11-11] MEDS ORDERED: WARFARIN SODIUM 2.5 MG TABLET PO SCH (22:00)
[2019-11-11] MEDS: MIRTAZAPINE SOLUTAB 15 MG/UDTABLET TAB.RAPDIS PO SCH (22:26)
[2019-11-11] MEDS ORDERED: WARFARIN SODIUM 7.5 MG TABLET PO ONE (23:45)
[2019-11-12] MEDS ORDERED: WARFARIN SODIUM 5 MG TABLET ONE (00:17)
[2019-11-12 06:04] LABS: BASOPHILS % (AUTO) 0.3 % (0.0-2.0); EOSINOPHILS % (AUTO) 2.9 % (0.0-6.0); HEMATOCRIT 32 % (33-45); HEMOGLOBIN 10.7 g/dL (11.5-14.8); LYMPHOCYTES # (AUTO) 1.2 /CMM (0.8-4.8); LYMPHOCYTES % (AUTO) 17.6 % (20.0-44.0); MEAN CORPUSCULAR HGB CONC 34 g/dl (31.0-36.0); MEAN CORPUSCULAR VOLUME 93 fL (82-100); MONOCYTES # (AUTO) 0.7 /CMM (0.1-1.30); MONOCYTES % (AUTO) 10.2 % (2.0-12.0); NEUTROPHILS # (AUTO) 4.5 /CMM (1.8-8.9); PLATELET COUNT (AUTO) 128 /CMM (150-450); RED BLOOD CELL COUNT(AUTO) 3.44 MIL/uL (4.0-5.2); WHITE BLOOD COUNT (AUTO) 6.5 K/uL (4.3-11.0)
[2019-11-12 06:11] LABS: CALCIUM, SERUM 9.1 mg/dL (8.5-10.1); CREATININE 0.6 mg/dL (0.6-1.3); POTASSIUM 3.5 mmol/L (3.5-5.1)
--- NOTE | 2019-11-12 06:33 | NUR ---
MS RN CLOSING NOTES Patient asleep on bed, on RA, no discomfort noted at this time. All due meds given as ordered. All nursing needs attended. Kept on bed clean, dry and comfortable. Call light within easy reach. On fall and aspiration precautions. No new unusualities noted within the shift. Endorsed to the next shift.
--- NOTE | 2019-11-12 07:15 | NUR ---
MS RN NOTES PATIENT IN BED ALERT ORIENTED X 3. NO ACUTE DISTRESS NOTED. BREATHING UNLABORED. IV ACCESS PATENT AND INTACT, NO REDNESS NO SWELLING NOTED. SAFETY MEASURES IN PLACE. CALL LIGHT WITHIN REACH. WILL CONTINUE TO MONITOR ACCORDINGLY.
[2019-11-12] MEDS: PANTOPRAZOLE 40 MG TABLET.DR PO SCH (07:54)
[2019-11-12] MEDS: POTASSIUM CHLORIDE 10 MEQ TABLET.SA PO SCH ×2 (07:55→17:43)
[2019-11-12 08:00] VITALS: BP 153/96
[2019-11-12] MEDS: CHOLECALCIFEROL 1,000 UNIT TABLET (VIT D3) PO SCH (08:28)
[2019-11-12] MEDS: ASPIRIN 81 MG TAB.CHEW PO SCH (08:28)
[2019-11-12] MEDS: BENAZEPRIL HCL 10 MG TABLET PO SCH (08:29)
[2019-11-12] MEDS: MULTIVITAMINS,THERAGRAN 1 UDTAB TABLET PO SCH (08:29)
[2019-11-12] MEDS: FUROSEMIDE 20 MG TABLET PO SCH (08:29)
[2019-11-12] MEDS: LamoTRIgine 25 MG TABLET PO SCH ×2 (08:30→17:43)
[2019-11-12] MEDS: ATENOLOL 50 MG TABLET PO SCH (08:31)
[2019-11-12] MEDS ORDERED: ISOSORBIDE DINITRATE (5MG) 5 MG TABLET PO SCH (09:00)
[2019-11-12] MEDS ORDERED: ISOSORBIDE DINITRATE (10MG) 10 MG TABLET PO SCH (09:00)
[2019-11-12] MEDS ORDERED: VENLAFAXINE XR 150 MG CAP.SR.24H PO SCH (09:00)
[2019-11-12] MEDS ORDERED: VENLAFAXINE 25 MG TABLET PO SCH (09:00)
--- NOTE | 2019-11-12 09:33 | NUR ---
MS RN NOTES PATIENT SEEN AND EVALUATED BY DR TEZ ORO WITH NEW ORDERS FOR COLACE 100 MG BID, NOTED AND CARRIED OUT.
[2019-11-12] MEDS ORDERED: CEFT1VIA15 IV (09:53)
--- NOTE | 2019-11-12 10:08 | NUR ---
MS RN NOTES CLARIFIED WITH DR TEZ ORO REGARDING EFFEXOR 150MG PO DAILY AND Isordil 5 MG TABLET PO BID PATIENT HOME MEDICATION , WITH ORDERS TO START MEDICATION WITH SAME DOSE. NOTED AND CARRIED OUT.
[2019-11-12] MEDS: DOCUSATE SODIUM 100 MG CAPSULE PO SCH ×2 (10:25→17:43)
[2019-11-12] MEDS: ISOSORBIDE DINITRATE (5MG) 5 MG TABLET PO SCH ×2 (10:26→17:44)
[2019-11-12] MEDS: CALCIUM CITRATE(CITRACAL) /VITAMIN D 1 TAB TABLET PO SCH (10:27)
[2019-11-12] MEDS: VENLAFAXINE XR 150 MG CAP.SR.24H PO SCH (10:27)
[2019-11-12] MEDS ORDERED: DIGOXIN 0.125 MG TABLET PO SCH (13:00)
[2019-11-12] MEDS: CEFTRIAXONE 1 G in IV D5W 50 ML IV SCH (13:43)
[2019-11-12 16:00] VITALS: BP 123/76
[2019-11-12] MEDS ORDERED: CRESTOR 20MG PO SCH (18:00)
--- NOTE | 2019-11-12 18:52 | NUR ---
MS RN NOTES PATIENT IN BED ALERT ORIENTED X 3, NO ACUTE DISTRESS NOTED. BREATHING UNLABORED. IV ACCESS PATENT AND INTACT. DUE MEDICATIONS GIVEN, NO ASE NOTED. NEEDS ATTENDED AND ANTICIPATED.SAFETY MEASURES IN PLACE. CALL LIGHT WITHIN REACH. WILL ENDORSE TO NIGHT NURSE FOR CONTINUITY OF CARE.
--- NOTE | 2019-11-12 19:10 | NUR ---
MS RN OPENING NOTES Received patient A/O x4, awake on bed on O2 inhalation 2LPM PRN. No respiratory distress noted at this time. Patient denies any discomfort. Kept on bed clean, dry and comfortable. Call light within easy reach. On fall and aspiration precautions. Will continue to monitor accordingly.
[2019-11-12 20:00] VITALS: BP 125/81
[2019-11-12] MEDS: MIRTAZAPINE SOLUTAB 15 MG/UDTABLET TAB.RAPDIS PO SCH (21:49)
[2019-11-12] MEDS ORDERED: WARFARIN SODIUM 5 MG TABLET PO SCH (22:00)
[2019-11-12] MEDS ORDERED: LATANOPROST EYE DROP 0.005% 2.5 ML BOTTLE EACHEYE SCH (22:00)
[2019-11-13] MEDS: POTASSIUM CHLORIDE 10 MEQ TABLET.SA PO SCH (06:35)
[2019-11-13] MEDS: PANTOPRAZOLE 40 MG TABLET.DR PO SCH (06:35)
--- NOTE | 2019-11-13 06:44 | NUR ---
MS RN CLOSING NOTES Patient asleep, easily awaken. On RA, no complaints made at this time. All due meds given as ordered. All nursing needs attended. Kept on bed clean, dry and comfortable. Call light within easy reach. Endorsed.
[2019-11-13 08:00] VITALS: BP 126/75
[2019-11-13] MEDS: CHOLECALCIFEROL 1,000 UNIT TABLET (VIT D3) PO SCH (09:00)
[2019-11-13] MEDS: VENLAFAXINE XR 150 MG CAP.SR.24H PO SCH (09:00)
[2019-11-13] MEDS: MULTIVITAMINS,THERAGRAN 1 UDTAB TABLET PO SCH (09:00)
[2019-11-13] MEDS: DOCUSATE SODIUM 100 MG CAPSULE PO SCH (09:00)
[2019-11-13] MEDS: ASPIRIN 81 MG TAB.CHEW PO SCH (09:01)
[2019-11-13] MEDS: FUROSEMIDE 20 MG TABLET PO SCH (09:01)
[2019-11-13] MEDS: ATENOLOL 50 MG TABLET PO SCH (09:02)
[2019-11-13] MEDS: BENAZEPRIL HCL 10 MG TABLET PO SCH (09:02)
[2019-11-13 09:03] VITALS: BP 126/75
[2019-11-13] MEDS: CALCIUM CITRATE(CITRACAL) /VITAMIN D 1 TAB TABLET PO SCH (09:03)
[2019-11-13] MEDS: ISOSORBIDE DINITRATE (5MG) 5 MG TABLET PO SCH (09:03)
[2019-11-13] MEDS: LamoTRIgine 25 MG TABLET PO SCH (09:03)
--- NOTE | 2019-11-13 10:06 | NUR ---
MS RN NOTES PATIENT SEEN AND EVALUATED BY DR TEZ ORO WITH NEW ORDERS MADE, NOTED AND CARRIED OUT.
[2019-11-13] MEDS ORDERED: LEVO500T75 PO (10:13)
[2019-11-13] MEDS: CEFTRIAXONE 1 G in IV D5W 50 ML IV SCH (13:24)
--- NOTE | 2019-11-13 15:25 | NUR ---
MS WATER POLLUTION CONTROL INSPECTOR NOTES PATIENT DISCHARGE TO [facility] WITH STABLE VITAL SIGNS, REPORT GIVEN TO VIKASH SPENCER. NO ACUTE DISTRESS NOTED. BREATHING UNLABORED. IV ACCESS REMOVED, NO BLEEDING, NO REDNESS, NO SWELLING NOTED. DISCHARGE INSTRUCTIONS GIVEN TO THE PATIENT INCLUDING FOLLOW UP APPOINTMENT WITH ORTHOPEDIC DOCTOR AND NEW MEDICATION, VERBALIZED UNDERSTANDING. ALL BELONGINGS ACCOUNTED FOR INCLUDING HOME MEDICATIONS TAKEN FROM THE PHARMACY. SKIN IS INTACT. NEEDS ATTENDED AND ANTICIPATED. PICKED UP VIA AMBULANCE IN A GURNEY ACCOMPANIED BY 2 EMT PERSONNEL IN STABLE CONDITION.
[2019-11-13] MEDS ORDERED: WARFARIN SODIUM 2.5 MG TABLET PO SCH (22:00)
== END 2019-11-13 15:25 | DRG 536 ==
LOC: ER 10:50 → MEDSG2 14:17
PROVIDERS: ADMIT Hospitalist; ATTEND Family Medicine
DX: S32.301A Unspecified fracture of right ilium, initial encounter for closed fracture (principal); S32.501A Unspecified fracture of right pubis, initial encounter for closed fracture; N39.0 Urinary tract infection, site not specified; Y92.009 Unspecified place in unspecified non-institutional (private) residence as the place of occurrence of the external cause; I48.91 Unspecified atrial fibrillation; Z86.73 Personal history of transient ischemic attack (TIA), and cerebral infarction without residual deficits; I11.9 Hypertensive heart disease without heart failure; Z79.01 Long term (current) use of anticoagulants; Z79.82 Long term (current) use of aspirin; Z79.899 Other long term (current) drug therapy; N32.81 Overactive bladder; Z87.440 Personal history of urinary (tract) infections; W01.0XXA Fall on same level from slipping, tripping and stumbling without subsequent striking against object, initial encounter; I70.0 Atherosclerosis of aorta; F32.9 Major depressive disorder, single episode, unspecified; D69.6 Thrombocytopenia, unspecified; B96.20 Unspecified Escherichia coli [E. coli] as the cause of diseases classified elsewhere
CPT/HCPCS: 36415; 71045-TC; 72192-TC; 80048-TC; 80053-TC; 80061-TC; 80076-TC; 80162-TC; 81000-TC; 83605-TC; 83735-TC; 84100-TC; 84443-TC; 84484-TC; 85025-TC; 85610-TC; 85730-TC; 87040-TC; 87081-TC; 87086-TC; 87186-TC; 97116-TC; 97530-TC; G0378; J0696; J7030; J7060

== ENCOUNTER 2019-12-22 15:10 | Inpatient (IN) | payer MEDICARE, BC ==
[~2019-12-22] VITALS: Ht 182.9 cm; Wt 82.1 kg
[~2019-12-22 15:10] MED LIST changes: +BIOSIL PO; +CALC1WAF4 PO; +CHOL200026 PO; -DOCU-141 PO; +GLUC1TAB PO; +LEVO500T75 PO; +MULT-1160 PO; +NITR0.4T48 SL; +OMEG1CAP PO; +POLY17PO4 PO; +PSYL1PAC8 PO; +TRAM50TA2 PO
--- NOTE | 2019-12-22 15:20 | NUR ---
[id number], from home, nosebleeding x 3hrs CLINICAL REHAB SPECIALIST, on coumadin. Patient a/ox4, breathing even and unlabored, spo2 89% on room air, placed on o2 at 2lpm via nc. Dr. Javed at bedside for eval.
[2019-12-22] MEDS ORDERED: OXYMETAZOLINE HCL NASAL SPRAY 30 ML BOTTLE NS ONE ×2 (15:30→15:32)
[2019-12-22 15:40] LABS: BASOPHILS % (AUTO) 0.6 % (0.0-2.0); EOSINOPHILS % (AUTO) 3.5 % (0.0-6.0); HEMATOCRIT 36 % (33-45); HEMOGLOBIN 11.8 g/dL (11.5-14.8); LYMPHOCYTES # (AUTO) 1.2 /CMM (0.8-4.8); LYMPHOCYTES % (AUTO) 17.2 % (20.0-44.0); MEAN CORPUSCULAR HGB CONC 33 g/dl (31.0-36.0); MEAN CORPUSCULAR VOLUME 95 fL (82-100); MONOCYTES # (AUTO) 0.6 /CMM (0.1-1.30); MONOCYTES % (AUTO) 8.3 % (2.0-12.0); NEUTROPHILS % (AUTO) 70.4 % (43.0-81.0); RED BLOOD CELL COUNT(AUTO) 3.75 MIL/uL (4.0-5.2); WHITE BLOOD COUNT (AUTO) 7.1 K/uL (4.3-11.0)
[2019-12-22 15:50] LABS: CALCIUM, SERUM 9.9 mg/dL (8.5-10.1); CREATININE 0.8 mg/dL (0.6-1.3); POTASSIUM 3.5 mmol/L (3.5-5.1)
[2019-12-22 16:08] LABS: PLATELET COUNT (AUTO) 34 /CMM (150-450)
--- NOTE | 2019-12-22 16:12 | NUR ---
noseclip applied. Patient's nose still bleeding even after Afrin.
[2019-12-22 17:10] LABS: LYMPHOCYTES % (MANUAL) 20 % (16-48); MONOCYTES % (MANUAL) 10 % (0-11.0); NEUTROPHILS % (MANUAL) 70 (42-76)
[2019-12-22] MEDS ORDERED: COUMADIN (17:33)
[2019-12-22] MEDS ORDERED: WARF10TA22 PO (17:58)
[2019-12-22] MEDS ORDERED: WARF7.5T23 PO (17:58)
--- NOTE | 2019-12-22 18:28 | NUR ---
PAGED [facility].
--- NOTE | 2019-12-22 19:10 | NUR ---
REPORT RECEIVED FROM JOHANNA GONZÁLES FOR JAVIER
--- NOTE | 2019-12-22 19:32 | NUR ---
CALLED NURSING SUP FOR M/S BED.
--- NOTE | 2019-12-22 19:59 | NUR ---
RECIEVED BED 310-2
[2019-12-22] MEDS ORDERED: MAGNESIUM HYDROXIDE 30 ML UDC PO PRN (20:00)
[2019-12-22] MEDS ORDERED: MAG HYDROX/AL HYDROX/SIMETH 30 ML UDC PO PRN (20:00)
[2019-12-22] MEDS ORDERED: HYDROCODONE/APAP 5/325MG 1 EACH TABLET PO PRN (20:00)
[2019-12-22] MEDS ORDERED: ONDANSETRON HCL/PF 4 MG/2 ML VIAL IVP PRN (20:00)
[2019-12-22] MEDS ORDERED: ACETAMINOPHEN 325 MG TABLET PO PRN (20:00)
[2019-12-22] MEDS ORDERED: MORPHINE SULFATE INJ 2 MG/ML DISP.SYRIN IV PRN (20:00)
[2019-12-22] MEDS ORDERED: ZOLPIDEM TARTRATE 5 MG TABLET PO PRN (20:00)
[2019-12-22] MEDS ORDERED: Z GUARD REMEDY 2 OZ OINT TP PRN (20:00)
--- NOTE | 2019-12-22 20:06 | NUR ---
REPORT GIVEN TO JOHANNA TAMEZ
[2019-12-22 20:10] VITALS: BP 136/46
--- NOTE | 2019-12-22 20:22 | NUR ---
PT TRANSFERRED TO BED 310-2 IN STABLE CONDITION
[2019-12-22] MEDS ORDERED: NITROGLYCERIN 0.4 MG/TAB BOTTLE SL PRN (20:30)
--- NOTE | 2019-12-22 21:00 | NUR ---
RN ADMITTING NOTES RECEIVED REPORT FROM AREA MECHANIC HALIMA. Pt ARRIVED TO THE FLOOR VIA ER FAITH, BUT WAS ABLE TO WALK WITH STANDBY ASSIST TO THE ROOM BED IN 310-2. WALKER PROVIDED PER Pt REQUEST. Pt IS A/OX4, VERBAL, ABLE TO MAKE NEEDS KNOWN. IV ACCESS KHADIJAH, ML. NO S/S OF ACUTE DISTRESS OR SOB NOTED. SAFETY MEASURES IN PLACE. BED LOW, LOCKED, HOB ELEVATED, SIDE RAILS UP, CALL LIGHT AND BEDSIDE TABLE WITHIN REACH. BED ALARM ON. WILL CONTINUE TO MONITOR Pt's CONDITION AND SAFETY THROUGHOUT THE NIGHT.
[2019-12-22 22:00] VITALS: BP 136/76
[2019-12-22] MEDS: MIRTAZAPINE SOLUTAB 15 MG/UDTABLET TAB.RAPDIS PO SCH (23:32)
[2019-12-22] MEDS: ATORVASTATIN 40 MG TABLET PO SCH (23:32)
--- NOTE | 2019-12-23 | NUR ---
MAIK (SON) #: TONY (DTR IN LAW) #: ELISABETH (FAMILY/FRIEND) #:
[2019-12-23] MEDS: POTASSIUM CHLORIDE 10 MEQ TABLET.SA PO SCH ×2 (07:08→17:07)
[2019-12-23 07:34] LABS: BASOPHILS % (AUTO) 0.7 % (0.0-2.0); EOSINOPHILS % (AUTO) 5.2 % (0.0-6.0); HEMATOCRIT 34 % (33-45); HEMOGLOBIN 11.3 g/dL (11.5-14.8); LYMPHOCYTES # (AUTO) 1.1 /CMM (0.8-4.8); LYMPHOCYTES % (AUTO) 20.6 % (20.0-44.0); MEAN CORPUSCULAR HGB CONC 33 g/dl (31.0-36.0); MEAN CORPUSCULAR VOLUME 96 fL (82-100); MONOCYTES # (AUTO) 0.4 /CMM (0.1-1.30); NEUTROPHILS # (AUTO) 3.5 /CMM (1.8-8.9); NEUTROPHILS % (AUTO) 65.5 % (43.0-81.0); RED BLOOD CELL COUNT(AUTO) 3.56 MIL/uL (4.0-5.2); WHITE BLOOD COUNT (AUTO) 5.3 K/uL (4.3-11.0)
--- NOTE | 2019-12-23 07:35 | NUR ---
RN CLOSING NOTES NO SIGNIFICANT CHANGES IN Pt's CONDITION. NO S/S OF ACUTE DISTRESS OR SOB NOTED DURING THE NIGHT. ALL NEEDS MET AND ATTENDED TO. SAFETY MEASURES IN PLACE. Pt IS RESTING IN BED, WITH UNLABORED RESPIRATIONS & EQUAL CHEST RISE AND FALL. ENDORSED TO DAYSHIFT RN FOR Pt's JAVIER.
[2019-12-23 07:45] LABS: CALCIUM, SERUM 9.4 mg/dL (8.5-10.1); CREATININE 0.8 mg/dL (0.6-1.3); MAGNESIUM 1.6 mg/dL (1.8-2.4); PHOSPHORUS 3.4 mg/dL (2.5-4.9); POTASSIUM 3.3 mmol/L (3.5-5.1)
[2019-12-23 08:00] VITALS: BP 127/86
[2019-12-23] MEDS: LATANOPROST EYE DROP 0.005% 2.5 ML BOTTLE EACHEYE SCH (08:20)
[2019-12-23] MEDS: PANTOPRAZOLE 40 MG TABLET.DR PO SCH (08:21)
[2019-12-23] MEDS: LamoTRIgine 25 MG TABLET PO SCH ×2 (08:22→17:07)
[2019-12-23] MEDS: CALCIUM CITRATE(CITRACAL) /VITAMIN D 1 TAB TABLET PO SCH (08:23)
[2019-12-23] MEDS: MULTIVITAMINS,THERAGRAN 1 UDTAB TABLET PO SCH (08:23)
[2019-12-23] MEDS: BENAZEPRIL HCL 10 MG TABLET PO SCH (08:24)
[2019-12-23] MEDS: ISOSORBIDE DINITRATE (10MG) 10 MG TABLET PO SCH ×2 (08:25→17:07)
[2019-12-23 08:29] LABS: PLATELET COUNT (AUTO) 29 /CMM (150-450)
[2019-12-23] MEDS: FUROSEMIDE 20 MG TABLET PO SCH (08:36)
[2019-12-23 08:39] LABS: THYROID STIMULATING HORMONE 1.533 uIU/mL (0.358-3.74)
--- NOTE | 2019-12-23 08:40 | NUR ---
m/s product marketing consultant: md visit dr. mendez at bedside talking to pt and daughter in law via speaker phone and discuss plan of care. dr. mendez discuss with pt and family re: low platelet, pt and daughter in law verbalized understanding.
[2019-12-23] MEDS ORDERED: ATENOLOL 50 MG TABLET PO SCH ×2 (09:00→17:00)
[2019-12-23] MEDS ORDERED: ASPIRIN 81 MG TAB.CHEW PO SCH (09:00)
[2019-12-23] MEDS ORDERED: POTASSIUM CHLORIDE 20 MEQ TAB.PRT.SR PO ONE (09:00)
[2019-12-23 09:28] LABS: BAND % (MANUAL) 1 % (0.0-5.0); EOSINOPHILS % (MANUAL) 4 % (0-4); LYMPHOCYTES % (MANUAL) 15 % (16-48); MONOCYTES % (MANUAL) 12 % (0-11.0); NEUTROPHILS % (MANUAL) 68 (42-76)
[2019-12-23] MEDS: VENLAFAXINE XR 150 MG CAP.SR.24H PO SCH (09:33)
[2019-12-23] MEDS: Magnesium 1GM/D5W 100ML PREMIX 100 ML IV SCH ×2 (09:42→10:56)
--- NOTE | 2019-12-23 10:00 | NUR ---
Social service consult requested by MD for information on Advance Directives. Per chart review and MD notes, pt is a 84-year-old female patient who was brought by the EMS to the emergency department, with a chief complaint of nosebleed x3 hours prior to ER arrival. 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 BANK COMPLIANCE OFFICER met with the pt bedside. Pt is alert and oriented x 4. Pt is pleasant and cooperative. BANK COMPLIANCE OFFICER explained Advance Directive process and gave pt the form. Pt. informed BANK COMPLIANCE OFFICER that she might have one initiated already, but will keep the form to show her [id number]. No other social service needs are requested at this time. BANK COMPLIANCE OFFICER is available, if needed.
--- NOTE | 2019-12-23 10:25 | NUR ---
m/s radio division captain: notes family friend at bedside and informed me that pt has to be on oxygen all the time per primary care physician due to her health issue to her heart (chf) and insisted that she has to have it. pt satting 96% on room air and pt has her oxygen on standby and will self apply her o2. instructed to call for assistance. will continue to monitor.
[2019-12-23] MEDS: DIGOXIN 0.125 MG TABLET PO SCH (13:28)
--- NOTE | 2019-12-23 14:00 | NUR ---
m/s minibus driver: notes resting comfortable in bed. no distress noted. awaiting for dr. wood (kiln loader). instructed to call for assistance. will continue to monitor.
[2019-12-23 16:00] VITALS: BP 146/89
--- NOTE | 2019-12-23 17:00 | NUR ---
m/s fancy sewer: notes dinner served. instructed to call for assistance.
--- NOTE | 2019-12-23 18:26 | NUR ---
m/s van loader: notes resting comfortable. no distress noted. awaiting for dr. wood to see pt. instructed to call for assistance.
--- NOTE | 2019-12-23 18:52 | NUR ---
m/s irrigation system installer: notes dr. wood here and aware of consult.
--- NOTE | 2019-12-23 19:26 | NUR ---
m/s computer analyst supervisor: notes bedside report given to ck (jorge a) for continuity of care.
--- NOTE | 2019-12-23 19:50 | NUR ---
RN OPENING NOTES RECEIVED REPORT FROM [facility] ANDREW BRADEN. FOUND Pt AWAKE, RESTING IN BED, TALKING ON THE PHONE. Pt IS A/OX4, VERBAL, ABLE TO MAKE NEEDS KNOWN. NO S/S OF ACUTE DISTRESS OR SOB NOTED. SAFETY MEASURES IN PLACE. BED LOW, LOCKED, HOB ELEVATED, SIDE RAILS UP, CALL LIGHT AND BEDSIDE TABLE WITHIN REACH. BED ALARM ON. WILL CONTINUE TO MONITOR Pt's CONDITION AND SAFETY THROUGHOUT THE NIGHT.
--- NOTE | 2019-12-23 20:00 | NUR ---
RN NOTES Pt S/B DR FELDMAN FOR HEMATOLOGY/ONCOLOGY CONSULT. PER DR FELDMAN, Pt TO BE NPO @[facility] FOR ULTRASOUND ABD IN THE AM.
[2019-12-23 20:37] VITALS: BP 124/79
[2019-12-23] MEDS: ATORVASTATIN 40 MG TABLET PO SCH (21:30)
[2019-12-23] MEDS: MIRTAZAPINE SOLUTAB 15 MG/UDTABLET TAB.RAPDIS PO SCH (21:30)
[2019-12-24] MEDS: PANTOPRAZOLE 40 MG TABLET.DR PO SCH (06:44)
[2019-12-24] MEDS: POTASSIUM CHLORIDE 10 MEQ TABLET.SA PO SCH (06:44)
--- NOTE | 2019-12-24 06:45 | NUR ---
RN NOTES PER DR FELDMAN TO KEEP NPO AFTER MN FOR ABD US. NON ADMINISTERED 0700 & 0730 AM MEDS.
[2019-12-24 06:58] LABS: BASOPHILS % (AUTO) 0.6 % (0.0-2.0); EOSINOPHILS % (AUTO) 8.4 % (0.0-6.0); HEMATOCRIT 35 % (33-45); HEMOGLOBIN 11.9 g/dL (11.5-14.8); LYMPHOCYTES # (AUTO) 1.8 /CMM (0.8-4.8); LYMPHOCYTES % (AUTO) 24.7 % (20.0-44.0); MEAN CORPUSCULAR HGB CONC 34 g/dl (31.0-36.0); MEAN CORPUSCULAR VOLUME 95 fL (82-100); MONOCYTES # (AUTO) 0.5 /CMM (0.1-1.30); MONOCYTES % (AUTO) 6.7 % (2.0-12.0); NEUTROPHILS # (AUTO) 4.3 /CMM (1.8-8.9); NEUTROPHILS % (AUTO) 59.6 % (43.0-81.0); WHITE BLOOD COUNT (AUTO) 7.1 K/uL (4.3-11.0)
[2019-12-24 07:13] LABS: PLATELET COUNT (AUTO) 42 /CMM (150-450)
--- NOTE | 2019-12-24 07:20 | NUR ---
MS RN NOTES PATIENT IN BED ALERT ORIENTED X 4. NO ACUTE DISTRESS NOTED. BREATHING UNLABORED. NO SOB NOTED. SAFETY MEASURES IN PLACE. CALL LIGHT WITHIN REACH. WILL CONTINUE TO MONITOR ACCORDINGLY.
[2019-12-24 07:31] LABS: POTASSIUM 3.7 mmol/L (3.5-5.1)
[2019-12-24 07:32] LABS: ALBUMIN 3.4 g/dL (3.4-5.0); BILIRUBIN,DIRECT 0.2 mg/dL (0.0-0.2); BILIRUBIN,TOTAL 0.6 mg/dL (0.2-1.0); CALCIUM, SERUM 9.5 mg/dL (8.5-10.1); CREATININE 0.9 mg/dL (0.6-1.3); MAGNESIUM 2.1 mg/dL (1.8-2.4); TOTAL PROTEIN, SERUM 7.1 g/dL (6.4-8.2)
[2019-12-24 07:36] LABS: THYROID STIMULATING HORMONE 0.903 uIU/mL (0.358-3.74)
[2019-12-24 08:00] VITALS: BP 141/75
[2019-12-24] MEDS: LATANOPROST EYE DROP 0.005% 2.5 ML BOTTLE EACHEYE SCH (08:56)
[2019-12-24] MEDS: VENLAFAXINE XR 150 MG CAP.SR.24H PO SCH (09:00)
[2019-12-24] MEDS: MULTIVITAMINS,THERAGRAN 1 UDTAB TABLET PO SCH (09:00)
[2019-12-24] MEDS: FUROSEMIDE 20 MG TABLET PO SCH (09:00)
[2019-12-24] MEDS: BENAZEPRIL HCL 10 MG TABLET PO SCH (09:00)
[2019-12-24] MEDS: CALCIUM CITRATE(CITRACAL) /VITAMIN D 1 TAB TABLET PO SCH (09:00)
[2019-12-24] MEDS: LamoTRIgine 25 MG TABLET PO SCH (09:00)
[2019-12-24] MEDS: ISOSORBIDE DINITRATE (10MG) 10 MG TABLET PO SCH (09:00)
[2019-12-24 09:31] LABS: EOSINOPHILS % (MANUAL) 10 % (0-4); LYMPHOCYTES % (MANUAL) 17 % (16-48); MONOCYTES % (MANUAL) 5 % (0-11.0); NEUTROPHILS % (MANUAL) 68 (42-76)
--- NOTE | 2019-12-24 12:30 | NUR ---
MS RN NOTES PATIENT REFUSED TO TAKE DIGOXIN DESPITE OF EXPLANATION OF RISKS AND BENEFITS SAID, "I'LL TAKE IT AT HOME".
[2019-12-24] MEDS: DIGOXIN 0.125 MG TABLET PO SCH (12:42)
--- NOTE | 2019-12-24 12:42 | NUR ---
MS NEW ACCOUNTS REPRESENTATIVE NOTES PATIENT DISCHARGE HOME WITH STABLE VITAL SIGNS, NO ACUTE DISTRESS NOTED, BREATHING UNLABORED. NO SOB NOTED. DISCHARGE INSTRUCTIONS GIVEN TO THE PATIENT INCLUDING HOME MEDICATIONS, FOLLOW UP WITH PRIMARY DOCTOR AND DR FELDMAN, VERBALIZED UNDERSTANDING. IV ACCESS REMOVED, NO BLEEDING, NO REDNESS, NO SWELLING NOTED. PATIENT REFUSED PHOTO TAKEN. SKIN IS INTACT. NEEDS ATTENDED AND ANTICIPATED. KEPT CLEAN DRY AND COMFORTABLE. ASSISTED TO THE LOBBY, PICKED UP VIA PRIVATE CAR WITH FRIEND IN STABLE CONDITION. ALL BELONGINGS ACCOUNTED FOR.
[2019-12-25 16:10] LABS: *ANA ANTI-CENTROMERE B AB <0.2 AI (0.0-0.9); *ANA ANTI-DNA(DS) AB, QN <1 IU/mL (0-9); *ANA ANTI-JO-1 <0.2 AI (0.0-0.9); *ANA ANTICHROMATIN ANTIBODY <0.2 AI (0.0-0.9); *ANA RNP ANTIBODIES <0.2 AI (0.0-0.9); *ANA SJOGREN'S ANTI-SS-A <0.2 AI (0.0-0.9); *ANA SJOGREN'S ANTI-SS-B <0.2 AI (0.0-0.9); *ANAANTI-SCLERODERMA-70 AB <0.2 AI (0.0-0.9); *ANASMITH AB <0.2 AI (0.0-0.9)
[2019-12-26 08:06] LABS: *SPE A/G RATIO 0.9 (0.7-1.7); *SPE ALBUMIN 3.1 g/dL (2.9-4.4); *SPE ALPHA-1-GLOBULIN 0.3 g/dL (0.0-0.4); *SPE ALPHA-2-GLOBULIN 0.8 g/dL (0.4-1.0); *SPE BETA GLOBULIN 1.1 g/dL (0.7-1.3); *SPE GLOBULIN, TOTAL 3.4 g/dL (2.2-3.9); *SPE M-SPIKE 0.4 g/dL (Not Observed); *SPEGAMMA GLOBULIN 1.2 g/dL (0.4-1.8)
[2020-02-16] MEDS ORDERED: ESTRADIOL XX SCH (09:00)
== END 2019-12-24 12:45 | disposition home or self-care (01) | DRG 813 ==
LOC: ER 15:14 → TELE 19:58 → MED 20:23
PROVIDERS: ADMIT Nurse Practitioner Acute Care; ATTEND Family Medicine
DX: D69.6 Thrombocytopenia, unspecified (principal); N17.0 Acute kidney failure with tubular necrosis; D68.59 Other primary thrombophilia; I48.20 Chronic atrial fibrillation, unspecified; I50.32 Chronic diastolic (congestive) heart failure; R04.0 Epistaxis; D68.32 Hemorrhagic disorder due to extrinsic circulating anticoagulants; T45.515A Adverse effect of anticoagulants, initial encounter; Y92.009 Unspecified place in unspecified non-institutional (private) residence as the place of occurrence of the external cause; I10 Essential (primary) hypertension; N32.81 Overactive bladder; Z99.81 Dependence on supplemental oxygen; Z86.73 Personal history of transient ischemic attack (TIA), and cerebral infarction without residual deficits; Z79.899 Other long term (current) drug therapy; Z79.82 Long term (current) use of aspirin; Z79.01 Long term (current) use of anticoagulants; E87.6 Hypokalemia; E83.42 Hypomagnesemia; I11.0 Hypertensive heart disease with heart failure; F32.9 Major depressive disorder, single episode, unspecified; D64.9 Anemia, unspecified; I27.20 Pulmonary hypertension, unspecified
CPT/HCPCS: 36415; 76700-TC; 80048-TC; 80061-TC; 80076-TC; 80162-TC; 82728-TC; 82784; 83540-TC; 83735-TC; 83880; 84100-TC; 84155; 84165; 84443-TC; 84484-TC; 85025-TC; 85730-TC; 86140-TC; 86225; 86235; 86334; 86431-TC; 86706; 86803; 87081-TC; 87340; 97116-TC; 97530-TC; G0378; J3475; J7030; J7050

== ENCOUNTER 2020-01-06 09:56 | Outpatient (CLI) | payer MEDICARE, BC ==
[~2020-01-06 09:56] MED LIST changes: -ASPI-1169 PO; -LEVO500T75 PO; -WARF-58 PO; -WARF1TAB47 PO
== END 2020-01-06 23:59 | disposition home or self-care (01) ==
LOC: RAD 09:56
PROVIDERS: ATTEND Internal Medicine Hematology & Oncology
DX: M16.11 Unilateral primary osteoarthritis, right hip (principal); M47.815 Spondylosis without myelopathy or radiculopathy, thoracolumbar region; M47.812 Spondylosis without myelopathy or radiculopathy, cervical region; M43.8X9 Other specified deforming dorsopathies, site unspecified; D47.2 Monoclonal gammopathy; M85.88 Other specified disorders of bone density and structure, other site; M85.849 Other specified disorders of bone density and structure, unspecified hand; Z96.642 Presence of left artificial hip joint
CPT/HCPCS: 77075-TC

== ENCOUNTER 2020-05-28 06:58 | Inpatient (IN) | payer MEDICARE, BC ==
[~2020-05-28] VITALS: Ht 180.3 cm; Wt 81.2 kg
--- NOTE | 2020-05-28 07:05 | NUR ---
Patient came in to the er c/o right hip pain s/p slipped and fall no LOC, on coumadin. On room air, breathing evenly, unlabored. connected to the monitor and pulse ox. Kept comfortable, will continue to monitor accordingly.
[2020-05-28] MEDS ORDERED: MORPHINE SULFATE INJ 4 MG/ML DISP.SYRIN ONE (07:29)
[2020-05-28] MEDS ORDERED: ONDANSETRON HCL/PF 4 MG/2 ML VIAL ONE (07:29)
[2020-05-28] MEDS ORDERED: MORPHINE SULFATE INJ 2 MG/ML DISP.SYRIN IV ONE (07:30)
[2020-05-28] MEDS ORDERED: ONDANSETRON HCL/PF 4 MG/2 ML VIAL IVP ONE (07:30)
--- NOTE | 2020-05-28 07:41 | NUR ---
chilango at bedside for x-ray
[2020-05-28 07:50] LABS: CREATININE 0.8 mg/dL (0.6-1.3); POTASSIUM 3.8 mmol/L (3.5-5.1)
[2020-05-28 07:53] LABS: BASOPHILS % (AUTO) 0.3 % (0.0-2.0); EOSINOPHILS % (AUTO) 5.3 % (0.0-6.0); HEMATOCRIT 35 % (33-45); HEMOGLOBIN 11.5 g/dL (11.5-14.8); LYMPHOCYTES % (AUTO) 28.8 % (20.0-44.0); MEAN CORPUSCULAR HGB CONC 33 g/dl (31.0-36.0); MEAN CORPUSCULAR VOLUME 96 fL (82-100); MONOCYTES # (AUTO) 0.4 /CMM (0.1-1.30); MONOCYTES % (AUTO) 6.1 % (2.0-12.0); NEUTROPHILS # (AUTO) 4.2 /CMM (1.8-8.9); NEUTROPHILS % (AUTO) 59.5 % (43.0-81.0); PLATELET COUNT (AUTO) 144 /CMM (150-450); WHITE BLOOD COUNT (AUTO) 7.1 K/uL (4.3-11.0)
[2020-05-28 07:56] LABS: ALBUMIN 3.4 g/dL (3.4-5.0); BILIRUBIN,DIRECT 0.1 mg/dL (0.0-0.2); BILIRUBIN,TOTAL 0.4 mg/dL (0.2-1.0); TOTAL PROTEIN, SERUM 7.2 g/dL (6.4-8.2)
--- NOTE | 2020-05-28 08:06 | NUR ---
CALLED DANNY RIDLEY TO HAVE DR TO CONSULT. AWAITING CALL BACK
[2020-05-28] MEDS ORDERED: PANT40TA2 PO (08:12)
[2020-05-28] MEDS ORDERED: WARF7.5T23 PO (08:18)
--- NOTE | 2020-05-28 08:30 | NUR ---
CALLED [facility]. CONTINUOUS DRYOUT OPERATOR HELPER WAS PAGED
--- NOTE | 2020-05-28 08:55 | NUR ---
CALLED HOUSE SUP FOR MS BED
--- NOTE | 2020-05-28 09:11 | NUR ---
CALLED [facility] TO FOLLOW UP. AWAITING A CALL BACK
--- NOTE | 2020-05-28 09:41 | NUR ---
report given to hamzah SPENCER for choco.
--- NOTE | 2020-05-28 10:15 | NUR ---
ADMIT TO TELE PT BROUGHT IN VIA GRNEY FROM ER. APPARENTLY PT HAD A FALL AT HOME, XRAY AT THE ER SHOWED A R HIP FX. PT IS AOX4. IRISH SPEAKING BUT ABLE TO UNDERSTAND INDONESIAN. NO CARDIAC OR RESPIRATORY DISTRESS NOTED. NO SOB NOTED. SATURATING WELL ON 2L/MIN VIA NC. CONTINENT OF B/B. USES BEDPAN. UNABLE TO AMBULATE AT THIS POINT. NWB PRECAUTIONS ON RLE. IV ACCESS NOTED ON L AC G20. INTACT AND PATENT AND FLUSHING WELL. NO S/S OF INFECTION OR INFILTRATION NOTED. BLAND CATH IN PLACE, FOR POSSIBLE SURGERY TOMORROW. SAFETY PRECAUTIONS IN PLACE. BED LOCKED AND IN LOW POSITION. SIDE RAILS UP X2. BED ALALRM ON. CALL LIGHT WITHIN REACH.
--- NOTE | 2020-05-28 10:15 | NUR ---
wheeled patient via gurney accompanied by EMT in no distress. RN at bedside to assume care.
--- NOTE | 2020-05-28 10:30 | NUR ---
PAIN MED PT C/O PAIN ON R HIP 07/22. NOTIFIED DR. PORTILLO, ORDERED MORPHINE 2MG IV Q4HRS PRN. ADMINISTERED.
[2020-05-28] MEDS ORDERED: MORPHINE SULFATE INJ 2 MG/ML DISP.SYRIN IV PRN (11:00)
--- NOTE | 2020-05-28 11:00 | NUR ---
BODY CHECK BODY CHECK DONE. PT NOTED WITH: R HIP DISCOLORATION BLE DISCOLORATIONS/DRYNESS NO OPEN AREAS NOTED
[2020-05-28] MEDS ORDERED: NITROGLYCERIN 0.4 MG/TAB BOTTLE SL PRN (12:00)
[2020-05-28] MEDS ORDERED: PHYTONADIONE INJ 10 MG/1 ML AMPUL SQ ONE (12:00)
[2020-05-28] MEDS ORDERED: ACETAMINOPHEN 325 MG TABLET PO PRN (12:00)
[2020-05-28] MEDS ORDERED: MAG HYDROX/AL HYDROX/SIMETH 30 ML UDC PO PRN (12:00)
[2020-05-28] MEDS ORDERED: ONDANSETRON HCL/PF 4 MG/2 ML VIAL IVP PRN (12:00)
[2020-05-28] MEDS ORDERED: Z GUARD REMEDY 2 OZ OINT TP PRN (12:00)
[2020-05-28] MEDS ORDERED: POLYETHYLENE GLYCOL 3350 17 GM POWD.PACK PO PRN (12:00)
[2020-05-28] MEDS: ENOXAPARIN SODIUM 40 MG/0.4 ML DISP.SYRIN SQ SCH (12:00)
[2020-05-28] MEDS ORDERED: MAGNESIUM HYDROXIDE 30 ML UDC PO PRN (12:00)
--- NOTE | 2020-05-28 12:00 | NUR ---
PAIN MED PT STILL COMPLAINING OF PAIN ON R HIP AFTER MORPHINE ADMINISTERED. NOTIFIED DR. ORDERED TO INCREASE FREQUENCY OF MORPHINE TO Q3HRS PRN. NOTED AND CARRIED OUT. PT NOTIFIED. NON PHARMACOLOGICAL INTERVENTIONS PROVIDED. REPOSITIONED FOR COMFORT.
--- NOTE | 2020-05-28 13:00 | NUR ---
BLOOD IN URINE DR. HUANG NOTIFED OF PTS BLOODY URINE, WELL COAG LEVELS. LAKIA BARCENAS MD ORDERED VIT K.
[2020-05-28 13:10] VITALS: BP 109/44
[2020-05-28] MEDS: VENLAFAXINE XR 150 MG CAP.SR.24H PO SCH (13:28)
[2020-05-28] MEDS: DIGOXIN 0.125 MG TABLET PO SCH (13:28)
[2020-05-28] MEDS: MORPHINE SULFATE INJ 2 MG/ML DISP.SYRIN IV PRN (14:16)
[2020-05-28] MEDS ORDERED: FUROSEMIDE 100 MG/10 ML VIAL IV SCH (14:30)
--- NOTE | 2020-05-28 14:30 | NUR ---
CONSENTS CONSENTS OBTAINED PLACED IN CHART SIGHTED BY THE PT. PT IS AOX4 AND HAS THE CAPACITY TO MAKE DECISIONS.
[2020-05-28] MEDS: POTASSIUM CHLORIDE 20 MEQ TAB.PRT.SR PO SCH ×2 (15:10→15:11)
[2020-05-28] MEDS: ISOSORBIDE DINITRATE (10MG) 10 MG TABLET PO SCH (16:45)
[2020-05-28] MEDS: POTASSIUM CHLORIDE 10 MEQ TABLET.SA PO SCH (16:45)
[2020-05-28] MEDS: LamoTRIgine 25 MG TABLET PO SCH (16:45)
--- NOTE | 2020-05-28 18:33 | NUR ---
TECHNICAL DELIVERY MANAGER CLOSING NOTES PT IN BED AOX4. GUINEAN SPEAKING BUT ABLE TO UNDERSTAND UKRAINIAN. NO CARDIAC OR RESPIRATORY DISTRESS NOTED. NO SOB NOTED. SATURATING WELL ON 2L/MIN VIA NC. PTS PAIN MAGAED TODAY. PT WILL BE HAVING SURGERY IN AM, TO BE KEPT NPO AFTER MIDNIGHT TONIGHT. WILL ENDORSE TO NEXT SHIFT. PT IS ALREADY AWARE. CONTINUED WITH NWB PRECAUTIONS ON RLE. IV ACCESS NOTED ON L AC G20. INTACT AND PATENT AND FLUSHING WELL. NO S/S OF INFECTION OR INFILTRATION NOTED. BLAND CATH IN PLACE, FOR SURGERY TOMORROW. SAFETY PRECAUTIONS IN PLACE. BED LOCKED AND IN LOW POSITION. SIDE RAILS UP X2. BED ALALRM ON. CALL LIGHT WITHIN REACH.
[2020-05-28 20:00] VITALS: BP 113/78
--- NOTE | 2020-05-28 20:00 | NUR ---
RN NOTES PM SHIFT RECEIVED PATIENT IN BED, ALERT AND ORIENTED X4, 2LPM VIA NC, S/P FALL, WITH RIGHT HIP FRACTURE, BLAND CATHETER WITH CLOUDY AND WITH TINGED OF BLOOD URINE OUTPUT, FOR SCHEDULED SURGERY IN AM, WILL CONTINUE TO MONITOR
[2020-05-28] MEDS: ATORVASTATIN 40 MG TABLET PO SCH (21:25)
[2020-05-28] MEDS: LATANOPROST EYE DROP 0.005% 2.5 ML BOTTLE EACHEYE SCH (21:26)
[2020-05-28] MEDS: MIRTAZAPINE SOLUTAB 15 MG/UDTABLET TAB.RAPDIS PO SCH (21:26)
[2020-05-28] MEDS: HYDROCODONE/APAP 5/325MG 1 EACH TABLET PO PRN (21:35)
[2020-05-29] VITALS: BP 123/77
[2020-05-29] MEDS: MORPHINE SULFATE INJ 2 MG/ML DISP.SYRIN IV PRN ×4 (00:16→20:20)
[2020-05-29 04:00] VITALS: BP 103/57
--- NOTE | 2020-05-29 06:44 | NUR ---
RN NOTES Alert and oriented x4, O2 via NC at 2LPM, pain of 8/10, Morphine for pain management with adequate relief, Afib controlled, rowan catheter, cloudy with tinged of blood, flushed, NPO except meds since admission, for right hip hemiarthroplasty today, no schedule yet, cleared by cardio for surgery, consents signed, checklist done and in chart. SCD for VTE
--- NOTE | 2020-05-29 07:00 | NUR ---
pt. npo this am for surgery.
[2020-05-29] MEDS: POTASSIUM CHLORIDE 10 MEQ TABLET.SA PO SCH ×2 (07:26→17:10)
--- NOTE | 2020-05-29 07:40 | NUR ---
dr. jurado in this am to see pt.
[2020-05-29 08:00] VITALS: BP 113/72
[2020-05-29 08:16] LABS: BASOPHILS % (AUTO) 0.2 % (0.0-2.0); EOSINOPHILS % (AUTO) 0.2 % (0.0-6.0); HEMATOCRIT 29 % (33-45); HEMOGLOBIN 9.6 g/dL (11.5-14.8); LYMPHOCYTES # (AUTO) 1.2 /CMM (0.8-4.8); MEAN CORPUSCULAR HGB CONC 33 g/dl (31.0-36.0); MEAN CORPUSCULAR VOLUME 96 fL (82-100); MONOCYTES # (AUTO) 0.9 /CMM (0.1-1.30); MONOCYTES % (AUTO) 7.4 % (2.0-12.0); NEUTROPHILS # (AUTO) 9.6 /CMM (1.8-8.9); NEUTROPHILS % (AUTO) 82.2 % (43.0-81.0); PLATELET COUNT (AUTO) 167 /CMM (150-450); RED BLOOD CELL COUNT(AUTO) 3.02 MIL/uL (4.0-5.2); WHITE BLOOD COUNT (AUTO) 11.7 K/uL (4.3-11.0)
[2020-05-29] MEDS ORDERED: BENAZEPRIL HCL 10 MG TABLET PO SCH (09:00)
[2020-05-29] MEDS ORDERED: FUROSEMIDE 20 MG TABLET PO SCH (09:00)
[2020-05-29] MEDS: ISOSORBIDE DINITRATE (10MG) 10 MG TABLET PO SCH ×2 (09:00→17:00)
[2020-05-29] MEDS: ATENOLOL 50 MG TABLET PO SCH (09:00)
[2020-05-29 09:03] LABS: THYROID STIMULATING HORMONE 0.46 uIU/mL (0.358-3.74)
[2020-05-29 09:16] LABS: CALCIUM, SERUM 10.5 mg/dL (8.5-10.1); CREATININE 1.3 mg/dL (0.6-1.3); MAGNESIUM 2.2 mg/dL (1.8-2.4); POTASSIUM 4.8 mmol/L (3.5-5.1)
--- NOTE | 2020-05-29 10:30 | NUR ---
yarelis valero texted regarding surgery for pt. today.replied that no surgery due to elevated inr.
--- NOTE | 2020-05-29 11:36 | NUR ---
medicated for pain with morphine injection.
[2020-05-29] MEDS: ENOXAPARIN SODIUM 40 MG/0.4 ML DISP.SYRIN SQ SCH (11:53)
[2020-05-29] MEDS: LamoTRIgine 25 MG TABLET PO SCH ×2 (12:45→17:10)
[2020-05-29] MEDS: PANTOPRAZOLE 40 MG TABLET.DR PO SCH (12:45)
[2020-05-29] MEDS: VENLAFAXINE XR 150 MG CAP.SR.24H PO SCH (12:45)
[2020-05-29] MEDS: DIGOXIN 0.125 MG TABLET PO SCH (14:06)
--- NOTE | 2020-05-29 15:00 | NUR ---
dr. stevens here and aware of elevated inr,to follow up tomorrow.
[2020-05-29 16:00] VITALS: BP 108/60
--- NOTE | 2020-05-29 18:34 | NUR ---
npo midnight,possible surgery tomorrow.
[2020-05-29 20:00] VITALS: BP 112/56
--- NOTE | 2020-05-29 20:00 | NUR ---
RN NOTES RECEIVED PATIENT IN BED, ALERT AND ORIENTED X3, 2LMP VIA NC, PAIN TO RIGHT HIP, WILL GIVE MORPHINE IV, BLAND CATHETER CATHRYN COLORED WITH HEMATURIA, NPO AFTER MIDNIGHT FOR POSSIBLE SURGERY IN AM. WILL CONTINUE TO MONITOR. CALL LIGHT WITHIN REACH.
[2020-05-29] MEDS: LATANOPROST EYE DROP 0.005% 2.5 ML BOTTLE EACHEYE SCH (21:00)
[2020-05-29] MEDS: ATORVASTATIN 40 MG TABLET PO SCH (21:00)
[2020-05-29] MEDS: MIRTAZAPINE SOLUTAB 15 MG/UDTABLET TAB.RAPDIS PO SCH (21:00)
--- NOTE | 2020-05-30 06:17 | NUR ---
RN NOTES PM SHIFT ALERT AND ORIENTED X4, 2LPM VIA NC, CHRONIC O2 USE, PAIN MANAGED BY MORPHINE WITH ADEQUATE RELIEF, NPO SINCE AFTER MIDNIGHT, POSSIBLE RIGHT HIP HEMIARTHROPLASTY BY DR. BAKER IF INR < 1.4, BLAND CATHETER WITH HEMATURIA URINE OUTPUT, CARDIO RECOMMENDS FFP IF INR > 1.3. MONITOR INR, CONSENTS SIGNED, CHECKLIST IN CHART
[2020-05-30 06:53] LABS: BASOPHILS % (AUTO) 0.1 % (0.0-2.0); EOSINOPHILS % (AUTO) 0.2 % (0.0-6.0); HEMATOCRIT 25 % (33-45); HEMOGLOBIN 8.4 g/dL (11.5-14.8); LYMPHOCYTES % (AUTO) 6.3 % (20.0-44.0); MEAN CORPUSCULAR HGB CONC 33 g/dl (31.0-36.0); MEAN CORPUSCULAR VOLUME 95 fL (82-100); MONOCYTES % (AUTO) 6.6 % (2.0-12.0); NEUTROPHILS # (AUTO) 13.7 /CMM (1.8-8.9); NEUTROPHILS % (AUTO) 86.8 % (43.0-81.0); PLATELET COUNT (AUTO) 159 /CMM (150-450); RED BLOOD CELL COUNT(AUTO) 2.68 MIL/uL (4.0-5.2); WHITE BLOOD COUNT (AUTO) 15.8 K/uL (4.3-11.0)
[2020-05-30 06:58] LABS: ALBUMIN 2.9 g/dL (3.4-5.0); BILIRUBIN,TOTAL 0.4 mg/dL (0.2-1.0); CALCIUM, SERUM 10.2 mg/dL (8.5-10.1); CREATININE 1.2 mg/dL (0.6-1.3); MAGNESIUM 2.2 mg/dL (1.8-2.4); PHOSPHORUS 3.8 mg/dL (2.5-4.9); POTASSIUM 5.7 mmol/L (3.5-5.1); TOTAL PROTEIN, SERUM 6.5 g/dL (6.4-8.2)
[2020-05-30] MEDS: POTASSIUM CHLORIDE 10 MEQ TABLET.SA PO SCH (07:00)
--- NOTE | 2020-05-30 07:00 | NUR ---
RN NOTES NO TUBE INTAKE, ORAL INTAKE 450 ML
--- NOTE | 2020-05-30 07:10 | NUR ---
MS RN NOTES RECEIVED PATIENT ION BED, ALERT AND AWAKE ORIENTED X4. HOB ELEVATED. NO SOB. ON O2 AT 2L.MIN VIA NC PATITO WELL. DENIES C/O PAIN AT THIS TIME. NOTED RT LEG SWELLING. BLAND CATH INTACT AND PATENT DRAINING YELLOW COLORED URINE VIS BEDSIDE WITH SMALL AMOUNT OF HEMATURIA AND SEDIMENTS OBSERVED. BLAND CATH CARE DONE. RIGHT AC # 20 AND LEFT AC # 20 SL INTACT AND PATENT. BED IN LOWEST POSITION ,LOCKED. BED ALARM ON. ABLE TO VERBALIZE NEEDS. CALL LIGHT WITHIN REACH.
[2020-05-30 08:00] VITALS: BP 134/73
[2020-05-30] MEDS: VENLAFAXINE XR 150 MG CAP.SR.24H PO SCH (08:57)
[2020-05-30] MEDS: FUROSEMIDE 40 MG/4 ML VIAL IV SCH ×2 (08:57→12:02)
[2020-05-30] MEDS: ISOSORBIDE DINITRATE (10MG) 10 MG TABLET PO SCH ×2 (08:58→17:08)
[2020-05-30] MEDS: ATENOLOL 50 MG TABLET PO SCH (08:59)
[2020-05-30] MEDS: PANTOPRAZOLE 40 MG TABLET.DR PO SCH (08:59)
[2020-05-30] MEDS: LamoTRIgine 25 MG TABLET PO SCH ×2 (08:59→17:08)
[2020-05-30] MEDS: MORPHINE SULFATE INJ 2 MG/ML DISP.SYRIN IV PRN (09:01)
[2020-05-30] MEDS: IV NS 0.9% 1,000 ML IV PRN ×2 (09:03→20:08)
[2020-05-30] MEDS: HYDROCODONE/APAP 5/325MG 1 EACH TABLET PO PRN (10:56)
[2020-05-30] MEDS ORDERED: SODIUM POLYSTYRENE SULFONATE 15 G/60 ML BOTTLE PO ONE (11:30)
[2020-05-30] MEDS: ENOXAPARIN SODIUM 40 MG/0.4 ML DISP.SYRIN SQ SCH (12:00)
--- NOTE | 2020-05-30 12:04 | NUR ---
MS RN NOTES HELD [facility] ANTICIPATING SURGERY.
[2020-05-30] MEDS: DIGOXIN 0.125 MG TABLET PO SCH (13:27)
[2020-05-30 15:50] LABS: CALCIUM, SERUM 9.8 mg/dL (8.5-10.1); CREATININE 1.2 mg/dL (0.6-1.3); POTASSIUM 4.9 mmol/L (3.5-5.1)
[2020-05-30 16:00] VITALS: BP 116/63
--- NOTE | 2020-05-30 17:40 | NUR ---
MS RN NOTES RECEIVED A CALL FROM CELINA GILL AND SAID PATIENT IS SCHEDULED FOR SURGERY GEMINI WITH DR. BAKER.
--- NOTE | 2020-05-30 19:33 | NUR ---
MS RN NOTES PATIENT RESTING COMFORTABLY IN BED. HOB ELEVATED. NO S/S OF RESPIRATORY DISTRESS. ON O2 AT 2L/MIN VIA NC PATITO WELL. DENIES C/O PAIN AT THIS TIME. BLAND CATH INTACT AND PATENT DRAINING YELLOW COLORED URINE VIA BEDSIDE. BLAND CATH CARE DONE. LEFT AC # 20 INTACT AND PATENT INFUSING NS AT 125ML/HR. BED IN LOWEST POSITION ,LOCKED. BED ALARM ON. ABLE TO VERBALIZE NEEDS. CALL LIGHT WITHIN REACH. IN NO APPARENT DISTRESS.
--- NOTE | 2020-05-30 19:45 | NUR ---
MS RN OPENING NOTES PATIENT RECEIVED RESTING IN BED, A/O X 3-4. ON 2L OF O2 WITH BREATHING EVEN AND UNLABORED, NO SOB NOTED. NO SIGNS OF ACUTE DISTRESS. NO COMPLAINTS OF PAIN OR DISCOMFORT AT THE MOMENT. BLAND CATH NOTED AND IN PLACE. IV LOCATED ON L AC #20 RUNNING NS @ 125 ML/HR. PATIENT REMAINING NPO THROUGHOUT THE NIGHT. SAFETY PRECAUTIONS IN PLACE WITH BED IN LOWEST POSITION, CALL LIGHT WITHIN REACH, BREAKS ON, SIDE RAILS UP. WILL CONTINUE TO MONITOR THROUGHOUT THE NIGHT.
[2020-05-30 20:00] VITALS: BP 127/64
[2020-05-30] MEDS: LATANOPROST EYE DROP 0.005% 2.5 ML BOTTLE EACHEYE SCH (21:11)
[2020-05-30] MEDS: ATORVASTATIN 40 MG TABLET PO SCH (21:11)
[2020-05-30] MEDS: MIRTAZAPINE SOLUTAB 15 MG/UDTABLET TAB.RAPDIS PO SCH (21:11)
[2020-05-31] VITALS (8 sets, daily range): BP systolic 104–136; BP diastolic 48–86
[2020-05-31] MEDS: IV NS 0.9% 1,000 ML IV PRN (06:20)
--- NOTE | 2020-05-31 06:45 | NUR ---
MS RN CLOSING NOTES PATIENT RESTING IN BED, A/O X 3-4. ON 2L OF O2 WITH BREATHING EVEN AND UNLABORED, NO SOB NOTED. NO SIGNS OF ACUTE DISTRESS. NO COMPLAINTS OF PAIN OR DISCOMFORT AT THE MOMENT. BLAND CATH NOTED AND IN PLACE DRAINING CLEAR YELLOW URINE. IV LOCATED ON L AC #20 RUNNING NS @ 125 ML/HR. PATIENT REMAINED NPO THROUGHOUT THE NIGHT. SAFETY PRECAUTIONS IN PLACE WITH BED IN LOWEST POSITION, CALL LIGHT WITHIN REACH, BREAKS ON, SIDE RAILS UP. ALL NEEDS ATTENDED TO, PATIENT KEPT CLEAN AND DRY. WILL ENDORSE TO ONCOMING SHIFT ABOUT JAVIER.
--- NOTE | 2020-05-31 07:03 | NUR ---
MS RN OPENING NOTES RECEIVED PATIENT AWAKE IN BED. A/OX3-4 AND SOMETIMES FORGETFUL. PT ON 2L NC. PT ABLE TO VERBALIZE NEEDS. NO SOB NOTED, NO C/O PAIN AT THIS TIME. NO S/S OF ANY ACUTE RESPIRATORY DISTRESS; RESPIRATION IS EVEN AND UNLABORED. IV ACCESS IN LAC, G#20, INTACT AND PATENT RUNNING NS@125ML/HR.BLAND CATHETER IN PLACE, DRAINING TO GRAVITY CLEAR YELLOW URINE OUTPUT. ASPIRATION AND SAFETY PRECAUTIONS IN PLACE. BED IN LOWEST LOCKED POSITION, BED ALARM ALARM ON, SIDE RAILS, CALL LIGHT WITHIN REACH. WILL CONTINUE TO MONITOR.
[2020-05-31 07:11] LABS: EOSINOPHILS % (AUTO) 0.2 % (0.0-6.0); HEMATOCRIT 24 % (33-45); HEMOGLOBIN 7.8 g/dL (11.5-14.8); LYMPHOCYTES # (AUTO) 0.7 /CMM (0.8-4.8); LYMPHOCYTES % (AUTO) 5.9 % (20.0-44.0); MEAN CORPUSCULAR HGB CONC 33 g/dl (31.0-36.0); MEAN CORPUSCULAR VOLUME 96 fL (82-100); MONOCYTES # (AUTO) 0.8 /CMM (0.1-1.30); MONOCYTES % (AUTO) 6.2 % (2.0-12.0); NEUTROPHILS # (AUTO) 10.8 /CMM (1.8-8.9); NEUTROPHILS % (AUTO) 87.7 % (43.0-81.0); PLATELET COUNT (AUTO) 162 /CMM (150-450); RED BLOOD CELL COUNT(AUTO) 2.48 MIL/uL (4.0-5.2); WHITE BLOOD COUNT (AUTO) 12.4 K/uL (4.3-11.0)
--- NOTE | 2020-05-31 07:30 | NUR ---
PT'S IV ACCESS IN LAC G#20 NOTED TO BE INFILTRATED. IVF STOPPED, IV REMOVED, NO BLEEDING NOTED, PRESSURE APPLIED AND SECURE WITH GAUZE/TAPE. LEFT ARM ELEVATED ON PILLOW, ICE COMPRESS APPLIED. WILL CONTINUE TO MONITOR.
[2020-05-31 08:53] LABS: APPEARANCE,URINE CLOUDY (CLEAR); BILIRUBIN,URINE NEGATIVE (NEGATIVE); BLOOD, URINE LARGE Ery/uL (NEGATIVE); COLOR,URINE YELLOW (YELLOW); KETONES,URINE NEGATIVE (NEGATIVE); LEUKOCYTE ESTERASE ,URINE MODERATE (NEGATIVE); NITRITE, URINE NEGATIVE (NEGATIVE); PROTEIN,URINE NEGATIVE (NEGATIVE); UGLUCOSE NEGATIVE (NEGATIVE); UROBILINOGEN,URINE 0.2 EU/dL (0.2)
[2020-05-31] MEDS: VENLAFAXINE XR 150 MG CAP.SR.24H PO SCH (08:59)
[2020-05-31] MEDS: LamoTRIgine 25 MG TABLET PO SCH ×2 (09:00→17:13)
[2020-05-31] MEDS: ISOSORBIDE DINITRATE (10MG) 10 MG TABLET PO SCH ×2 (09:00→17:13)
[2020-05-31] MEDS: PANTOPRAZOLE 40 MG TABLET.DR PO SCH (09:01)
[2020-05-31] MEDS: ATENOLOL 50 MG TABLET PO SCH (09:01)
[2020-05-31 09:09] LABS: ALBUMIN 2.6 g/dL (3.4-5.0); BILIRUBIN,TOTAL 0.5 mg/dL (0.2-1.0); CALCIUM, SERUM 9.2 mg/dL (8.5-10.1); CREATININE 0.8 mg/dL (0.6-1.3); MAGNESIUM 1.9 mg/dL (1.8-2.4); POTASSIUM 4.1 mmol/L (3.5-5.1); TOTAL PROTEIN, SERUM 6.1 g/dL (6.4-8.2)
[2020-05-31 09:47] LABS: BACTERIA,URINE Many /HPF (None Seen); SQUAMOUS EPITHELIAL CELL,UR Few /HPF (None Seen); WBC,URINE TOO NUMEROUS TO COUN /HPF (0-3)
[2020-05-31 10:00] LABS: CREATININE, URINE 76.3 MG/DL (30.0-125.0); URINE TOTAL PROTEIN 33.2 mg/dL (0-11.9)
--- NOTE | 2020-05-31 10:09 | NUR ---
PT SCHEDULED FOR SURGERY. HGB 7.8. RECEIVED ORDERS FROM SALIMA DAVIDSON TO TRANSFUSE 2UNITS PRBCS. CHECKLIST AND CONSENT FOR PROCEDURE AND BLOOD SIGNED BY PATIENT AND FILED IN CHART. ORDERS CARRIED OUT. WILL CONTINUE TO MONITOR
[2020-05-31] MEDS ORDERED: BUPIVACAINE 0.5 % PF 150 MG/30 ML VIAL ONE (10:48)
[2020-05-31] MEDS ORDERED: BACITRACIN 50000 UNITS/VIAL ONE (10:48)
[2020-05-31 11:00] LABS: EOSINOPHIL,URINE None Seen
[2020-05-31] MEDS: ENOXAPARIN SODIUM 40 MG/0.4 ML DISP.SYRIN SQ SCH (12:00)
--- NOTE | 2020-05-31 12:00 | NUR ---
RYLEY, ER NURSE REINSERTED NEW IV ACCESS IN LAC G#18 AND RAC G#20, BOTH INTACT, PATENT AND FLUSHING WELL. WILL CONTINUE TO MONITOR
--- NOTE | 2020-05-31 12:11 | NUR ---
PICKED UP BLOOD UNIT FROM THE LAB. BLOOD VERIFIED BY TWO NURSES AT BED SIDE. VITAL SIGNS BP 128/68 HR 97, RR 18, T 98.0, SPO2 96%. PT EDUCATION PROVIDED TO REPORT ANY ADVERSE REACTIONS, CHILLS, ITCHES BACK PAIN. BLOOD TRANSFUSION STARTED AT THIS TIME. WILL CONTINUE TO MONITOR.
--- NOTE | 2020-05-31 12:15 | NUR ---
PT TRANSPORTED TO OR BY BED AT THIS TIME WITH PORTABLE OXYGEN AT 3LPM VIA NC. NO TRANSFUSION REACTION NOTED. PT TRANSPORTED TO OR FOR RIGHT HIP HEMIARTHROPLASTY WITH ONGOING BLOOD BEING TRANSFUSED. WILL CONTINUE WITH PLAN OF CARE
--- NOTE | 2020-05-31 12:15 | NUR ---
PT TRANSPORTED TO OR BY BED AT THIS TIME WITH PORTABLE OXYGEN AT 3LPM VIA NC. NO TRANSFUSION REACTION NOTED. WILL CONTINUE WITH PLAN OF CARE
[2020-05-31] MEDS: DIGOXIN 0.125 MG TABLET PO SCH (13:00)
[2020-05-31] MEDS ORDERED: ANESTHESIA TRAY IN PYXIS 1 EA TRAY MC ONE (13:27)
[2020-05-31] MEDS ORDERED: TRANEXAMIC ACID 1,000 MG in IV NS 0.9% 100 ML IV PRN (14:00)
[2020-05-31] MEDS ORDERED: VANCOMYCIN 1 GM VIAL ONE (14:55)
--- NOTE | 2020-05-31 16:40 | NUR ---
PATIENT TRANSPORTED BACK TO ROOM BY BED AT THIS TIME FROM RIGHT HIP HEMIARTHROPLASTY PROCEDURE. RIGHT HIP SECURE IN TAPE, NO BLEEDING NOTED. VITAL SIGNS STABLE. BP 136/83 HR 69, RR 18, T 98.7, SPO2 100%WILL CONTINUE TO MONITOR.
--- NOTE | 2020-05-31 16:40 | NUR ---
PATIENT TRANSPORTED BACK TO ROOM BY BED AT THIS TIME FROM RIGHT HIP HEMIARTHROPLASTY PROCEDURE. RIGHT HIP SECURE IN TAPE, NO BLEEDING NOTED. VITAL SIGNS STABLE. BP 136/83 HR 69, RR 18, T 98.7, SPO2 100. BLOOD TRANSFUSION COMPLETED IN THE OR. PATIENT NOTED WITH ABDUCTION PILLOW TO KEEP HIP ALIGNED. WILL CONTINUE TO MONITOR.
[2020-05-31 16:43] LABS: HEMOGLOBIN 8.9 g/dL (11.5-14.8)
[2020-05-31] MEDS ORDERED: HYDROCODONE/APAP 5/325MG 1 EACH TABLET PO PRN (17:00)
--- NOTE | 2020-05-31 19:04 | NUR ---
MS RN CLOSING NOTES PATIENT AWAKE IN BED. PATIENT REMAINED STABLE THROUGHOUT SHIFT. PT KEPT CLEAN AND DRY. ALL CARE, NEEDS, TREATMENT AND MEDICATIONS ADMINISTERED ANTICIPATED PER ORDER. PT ONGOING BLOOD TRANSFUSION WITH NO ADVERSE REACTION NOTED AT THIS TIME. SAFETY PRECAUTIONS IN PLACE. BED IN LOWEST LOCKED POSITION, BED ALARM ALARM ON, SIDE RAILS, CALL LIGHT WITHIN REACH. WILL ENDORSE TO MATERIAL INSPECTOR NURSE FOR JAVIER
--- NOTE | 2020-05-31 19:11 | NUR ---
ADMINISTERING SECOND UNIT OF BLOOD AT THIS TIME. BLOOD VERIFIED BY TWO NURSES AT BED SIDE. VITAL SIGNS BP 124/86 HR 74, RR 18, T 97.9, SPO2 100%. PT EDUCATION PROVIDED TO REPORT ANY ADVERSE REACTIONS, CHILLS, ITCHES BACK PAIN. BLOOD TRANSFUSION STARTED AT THIS TIME. WILL CONTINUE TO MONITOR.
--- NOTE | 2020-05-31 19:26 | NUR ---
PT ONGOING BLOOD TRANSFUSION AT THIS TIME. VITAL SIGNS BP 118/67 HR 93, RR 18, T 97.6, SPO2 91%. PT EDUCATION PROVIDED TO REPORT ANY ADVERSE REACTIONS, CHILLS, ITCHES BACK PAIN. NO TRANSFUSION REACTION NOTED AT THIS TIME. WILL ENDORSE TO SUPERVISOR INSTRUMENT MAINTENANCE NURSE FOR JAVIER
--- NOTE | 2020-05-31 19:47 | NUR ---
MS RN OPENING NOTES PATIENT RECEIVED RESTING IN BED A/O X 3 WITH PERIODS OF FORGETFULNESS. ON 2L OF O2 WITH BREATHING EVEN AND UNLABORED,NO SOB NOTED. NO SIGNS OF ACUTE DISTRESS. NO COMPLAINTS OF PAIN OR DISCOMFORT AT THE MOMENT. BLAND CATH NOTED AND IN PLACE. IV LOCATED ON LAC #20 AND R AC #20 RUNNING 1 UNIT OF BLOOD- NO REACTIONS NOTED. ABDUCTOR PILLOW IN PLACE. SAFETY PRECAUTIONS IN PLACE WITH BED IN LOWEST POSITION, NANCY LIGHT WITHIN REACH, BREAKS ON, SIDE RAILS UP. WILL CONTINUE TO MONITOR THROUGHOUT THE NIGHT.
--- NOTE | 2020-05-31 20:29 | NUR ---
MS RN NOTES 1 UNIT OF BLOOD TRANSFUSING, PATIENT TOLERATING WELL NO REACTIONS NOTED. VITALS STABLE. INCREASED TO 100ML/HR. WILL CONTINUE TO MONITOR.
[2020-05-31] MEDS: ATORVASTATIN 40 MG TABLET PO SCH (21:05)
[2020-05-31] MEDS: MIRTAZAPINE SOLUTAB 15 MG/UDTABLET TAB.RAPDIS PO SCH (21:05)
[2020-05-31] MEDS: LATANOPROST EYE DROP 0.005% 2.5 ML BOTTLE EACHEYE SCH (21:05)
--- NOTE | 2020-05-31 22:53 | NUR ---
MS RN NOTES 1 UNIT OF BLOOD FINISHED INFUSING. NO REACTION, TOLERATED WELL. IV FLUSHED AND IVF CONTINUED.
[2020-05-31] MEDS: CEFAZOLIN 2 GM in IV D5W 100 ML IV SCH (22:54)
--- NOTE | 2020-05-31 23:00 | NUR ---
MS RN NOTES LATE ADMINISTRATION OF IV ANCEF BAG 1/2 DUE TO ADMINISTRATION OF BLOOD TRANSFUSION.
[2020-06-01] MEDS: IV LR 1000 ML 1,000 ML IV PRN (01:49)
[2020-06-01] MEDS: CEFAZOLIN 2 GM in IV D5W 100 ML IV SCH (05:31)
--- NOTE | 2020-06-01 05:38 | NUR ---
MS RN NOTES BLAND CATCH REMOVED PER POST-OP ORDERS. 500 CC OF CLEAR YELLOW URINE.
--- NOTE | 2020-06-01 07:33 | NUR ---
MS RN CLOSING NOTES PATIENT RESTING IN BED A/O X 3 WITH PERIODS OF FORGETFULNESS. ON 2L OF O2 WITH BREATHING EVEN AND UNLABORED,NO SOB NOTED. NO SIGNS OF ACUTE DISTRESS. NO COMPLAINTS OF PAIN OR DISCOMFORT AT THE MOMENT. IV LOCATED ON LAC #20 AND R AC #20 RUNNINGRUNNING LR @ 75ML/HR. ABDUCTOR PILLOW IN PLACE. SAFETY PRECAUTIONS IN PLACE WITH BED IN LOWEST POSITION, NANCY LIGHT WITHIN REACH, BREAKS ON, SIDE RAILS UP. ALL NEEDS ATTENDED TO. PATIENT KEPT CLEAN AND DRY THROUGOUT THE NIGHT. WILL ENDORSE TO ONCOMING SHFT ABOUT JAVIER.
--- NOTE | 2020-06-01 07:42 | NUR ---
MS RN OPENING NOTES RECEIVED PATIENT IN BED, AWAKE, A/O X3. PATIENT IS ON OXYGEN THERAPY AT 2 LPM VIA NASAL CANNULA; BREATHING IS EVEN AND UNLABORED; NO SOB NOTED AT THIS TIME. PATIENT REPORTS MILD PAIN. RAC G #20 PRESENT AND LAC G#20 IV ACCESS PRESENT AND INTACT INFUSING LR @ 75 MLS/HR. SAFETY PRECAUTIONS IN PLACE; BED IN LOW POSITION AND LOCKED, RAILS UP X2, CALL LIGHT WITHIN REACH, ABDUCTOR PILLOW IN PLACE. WILL CONTINUE TO MONITOR PATIENT.
[2020-06-01 08:00] VITALS: BP 126/80
[2020-06-01 08:04] LABS: HEMATOCRIT 28 % (33-45); LYMPHOCYTES # (AUTO) 0.9 /CMM (0.8-4.8); LYMPHOCYTES % (AUTO) 7.5 % (20.0-44.0); MEAN CORPUSCULAR HGB CONC 33 g/dl (31.0-36.0); MEAN CORPUSCULAR VOLUME 92 fL (82-100); MONOCYTES # (AUTO) 1.1 /CMM (0.1-1.30); MONOCYTES % (AUTO) 9.2 % (2.0-12.0); NEUTROPHILS # (AUTO) 9.6 /CMM (1.8-8.9); NEUTROPHILS % (AUTO) 83.3 % (43.0-81.0); PLATELET COUNT (AUTO) 159 /CMM (150-450); RED BLOOD CELL COUNT(AUTO) 2.99 MIL/uL (4.0-5.2); WHITE BLOOD COUNT (AUTO) 11.5 K/uL (4.3-11.0)
[2020-06-01 08:21] LABS: ALBUMIN 2.5 g/dL (3.4-5.0); BILIRUBIN,TOTAL 0.6 mg/dL (0.2-1.0); CALCIUM, SERUM 8.7 mg/dL (8.5-10.1); CREATININE 0.9 mg/dL (0.6-1.3); MAGNESIUM 2.1 mg/dL (1.8-2.4); PHOSPHORUS 2.1 mg/dL (2.5-4.9); TOTAL PROTEIN, SERUM 5.9 g/dL (6.4-8.2)
[2020-06-01] MEDS: VENLAFAXINE XR 150 MG CAP.SR.24H PO SCH (08:41)
[2020-06-01] MEDS: PANTOPRAZOLE 40 MG TABLET.DR PO SCH (08:42)
[2020-06-01] MEDS: ATENOLOL 50 MG TABLET PO SCH (08:42)
[2020-06-01] MEDS: ISOSORBIDE DINITRATE (10MG) 10 MG TABLET PO SCH ×2 (08:43→16:09)
[2020-06-01] MEDS: LamoTRIgine 25 MG TABLET PO SCH ×2 (08:43→16:08)
[2020-06-01] MEDS ORDERED: ENOXAPARIN SODIUM 40 MG/0.4 ML DISP.SYRIN SQ SCH (09:00)
--- NOTE | 2020-06-01 09:48 | NUR ---
MS RN NOTES PATIENT'S BLAND WAS REMOVED IN THE AM BY THE BILINGUAL BRANCH MANAGER NURSE. PATIENT LOOKED DISTENDED SO BLADDER SCAN WAS DONE. ONLY 145 MLS DETECTED. WILL CONTINUE TO MONITOR.
[2020-06-01 10:09] LABS: IRON, SERUM 67 ug/dl (50-175); TOTAL IRON BINDING CAPACITY 264 ug/dl (250-450)
[2020-06-01 10:24] LABS: FERRITIN 137 ng/mL (8-388)
[2020-06-01] MEDS: DIGOXIN 0.125 MG TABLET PO SCH (13:33)
[2020-06-01 16:00] VITALS: BP 142/74
[2020-06-01] MEDS ORDERED: NEUTRA PHOS 1 POWD.PACKET PO ONE (16:00)
[2020-06-01] MEDS: APIXABAN 5 MG TABLET PO SCH (16:10)
--- NOTE | 2020-06-01 18:40 | NUR ---
MS RN CLOSING NOTES PATIENT IN BED, AWAKE, A/O X3 AND WATCHING TV. PATIENT IS ON OXYGEN THERAPY AT 2 LPM VIA NASAL CANNULA; BREATHING IS EVEN AND UNLABORED; NO SOB NOTED DURING THE SHIFT. RAC G #20 PRESENT AND LAC G#20 IV ACCESS PRESENT AND INTACT INFUSING LR @ 75 MLS/HR. ALL NEEDS ATTENDED TO THROUGHOUT THE DAY. PT EVAL DONE. DIET CHANGED TO REGULAR. SAFETY PRECAUTIONS IN PLACE; BED IN LOW POSITION AND LOCKED, RAILS UP X2, CALL LIGHT WITHIN REACH, ABDUCTOR PILLOW IN PLACE. WILL ENDORSE TO WOUND CARE SPECIALIST NURSE.
--- NOTE | 2020-06-01 19:33 | NUR ---
MS RN OPENING NOTES PATIENT RECEIVED RESTING IN BED A/O X 3. ON 2L OF O2 WITH BREATHING EVEN AND UNLABORED, NO SOB NOTED. NO SIGNS OF ACUTE DISTRESS. NO COMPLAINTS OF PAIN OR DISCOMFORT. R HIP DRESSING NOTED AND INTACT WITH ABDUCTION PILLOW IN BETWEEN. IV LOCATED ON R AC #20 AND LAC #20 RUNNING LS @ 75 ML/HR. SAFETY PRECAUTIONS IN PLACE WITH BED IN LOWEST POSITION, CALL LIGHT WITHIN REACH, BREAKS ON, SIDE RAILS UP. WILL CONTINUE TO MONITOR.
[2020-06-01 20:00] VITALS: BP 121/79
[2020-06-01 20:40] VITALS: BP 121/79
[2020-06-01] MEDS: ATORVASTATIN 40 MG TABLET PO SCH (21:43)
[2020-06-01] MEDS: MIRTAZAPINE SOLUTAB 15 MG/UDTABLET TAB.RAPDIS PO SCH (21:43)
[2020-06-01] MEDS: LATANOPROST EYE DROP 0.005% 2.5 ML BOTTLE EACHEYE SCH (21:44)
[2020-06-02] MEDS: IV LR 1000 ML 1,000 ML IV PRN (04:43)
--- NOTE | 2020-06-02 06:48 | NUR ---
MS RN CLOSING NOTES PATIENT RESTING IN BED A/O X 3. ON 2L OF O2 WITH BREATHING EVEN AND UNLABORED, NO SOB NOTED. NO SIGNS OF ACUTE DISTRESS. NO COMPLAINTS OF PAIN OR DISCOMFORT. R HIP DRESSING NOTED AND INTACT WITH ABDUCTION PILLOW IN BETWEEN. IV LOCATED ON R AC #20 AND LAC #20 RUNNING LR @ 75 ML/HR. SAFETY PRECAUTIONS IN PLACE WITH BED IN LOWEST POSITION, CALL LIGHT WITHIN REACH, BREAKS ON, SIDE RAILS UP. ALL NEEDS ATTENDED TO. PATIENT KEPT CLEAN AND DRY. WILL ENDORSE TO ONCOMING SHIFT ABOUT JAVIER.
[2020-06-02 07:07] LABS: CALCIUM, SERUM 8.4 mg/dL (8.5-10.1); CREATININE 0.7 mg/dL (0.6-1.3); MAGNESIUM 1.9 mg/dL (1.8-2.4); PHOSPHORUS 1.9 mg/dL (2.5-4.9); POTASSIUM 3.2 mmol/L (3.5-5.1)
[2020-06-02 07:09] LABS: BASOPHILS % (AUTO) 0.2 % (0.0-2.0); EOSINOPHILS % (AUTO) 2.1 % (0.0-6.0); HEMATOCRIT 28 % (33-45); LYMPHOCYTES # (AUTO) 0.5 /CMM (0.8-4.8); LYMPHOCYTES % (AUTO) 7.2 % (20.0-44.0); MEAN CORPUSCULAR HGB CONC 33 g/dl (31.0-36.0); MEAN CORPUSCULAR VOLUME 92 fL (82-100); MONOCYTES # (AUTO) 0.8 /CMM (0.1-1.30); MONOCYTES % (AUTO) 10.3 % (2.0-12.0); NEUTROPHILS # (AUTO) 5.9 /CMM (1.8-8.9); NEUTROPHILS % (AUTO) 80.2 % (43.0-81.0); PLATELET COUNT (AUTO) 159 /CMM (150-450); WHITE BLOOD COUNT (AUTO) 7.4 K/uL (4.3-11.0)
[2020-06-02 07:14] LABS: *SPE A/G RATIO 0.9 (0.7-1.7); *SPE ALBUMIN 2.5 g/dL (2.9-4.4); *SPE ALPHA-1-GLOBULIN 0.4 g/dL (0.0-0.4); *SPE ALPHA-2-GLOBULIN 0.8 g/dL (0.4-1.0); *SPE BETA GLOBULIN 0.8 g/dL (0.7-1.3); *SPE GLOBULIN, TOTAL 2.8 g/dL (2.2-3.9); *SPE M-SPIKE 0.3 g/dL (Not Observed); *SPEGAMMA GLOBULIN 0.8 g/dL (0.4-1.8)
--- NOTE | 2020-06-02 07:30 | NUR ---
MS/RN Opening note Patient received from cage shift manager. A/O X3, vital signs stable, denies any pain or discomfort at this time. Dressing to right hip clean, dry and intact. IVF infusing at 75ml/hr via right forearm 22g, no signs of infiltration seen. Bed in low setting, side rails X3 in upright position, call light within reach. Will continue to monitor and ensure safety.
[2020-06-02 08:00] VITALS: BP 144/90
[2020-06-02 08:43] VITALS: BP 144/90
[2020-06-02] MEDS: ATENOLOL 50 MG TABLET PO SCH (08:43)
[2020-06-02] MEDS: PANTOPRAZOLE 40 MG TABLET.DR PO SCH (08:43)
[2020-06-02] MEDS: LamoTRIgine 25 MG TABLET PO SCH (08:43)
[2020-06-02] MEDS: ISOSORBIDE DINITRATE (10MG) 10 MG TABLET PO SCH (08:43)
[2020-06-02] MEDS: VENLAFAXINE XR 150 MG CAP.SR.24H PO SCH (08:46)
[2020-06-02] MEDS: APIXABAN 5 MG TABLET PO SCH (08:52)
--- NOTE | 2020-06-02 09:30 | NUR ---
MS/RN Medications Morning medications taken as ordered, no difficulty swallowing.
[2020-06-02] MEDS: POTASSIUM CHLORIDE 20 MEQ TAB.PRT.SR PO SCH ×3 (09:44→12:00)
--- NOTE | 2020-06-02 10:00 | NUR ---
MS/RN S/O Ortho Seen by ortho - patient cleared for discharge from orthopedic point of view, need to follow up in 7-10 days in office.
[2020-06-02] MEDS ORDERED: NEUTRA PHOS 1 POWD.PACKET PO ONE (10:30)
--- NOTE | 2020-06-02 11:05 | NUR ---
MS/RN Labs Morning labs reviewed: -phos 1.9 -mag 1.7 Both replaced with oral replacement medication.
[2020-06-02] MEDS: DIGOXIN 0.125 MG TABLET PO SCH (12:48)
--- NOTE | 2020-06-02 13:30 | NUR ---
MS/metal roofing mechanic order Patient to be discharged to [facility] today. Dressing to right hip changed, pictures taken and placed in chart. Exit care prepared and signed, chart copied. Report call to Rupert at [facility]. Heplock X2 removed, pressure dressings applied. Patient's family called and informed of discharge plan, telephone number and address given.
--- NOTE | 2020-06-02 14:50 | NUR ---
MS/foreign collection clerk Patient discharged at 1430.
== END 2020-06-02 14:46 | DRG 466 ==
LOC: ER 07:00 → MED 09:08 → TELE 16:26 → MED 05-29 08:46
PROC: 0SRR0JZ Replacement of Right Hip Joint, Femoral Surface with Synthetic Substitute, Open Approach (ICD-10-PCS; principal; 2020-05-31)
PROC: 0SW90JZ Revision of Synthetic Substitute in Right Hip Joint, Open Approach (ICD-10-PCS; 2020-05-31)
PROC: 30233N1 Transfusion of Nonautologous Red Blood Cells into Peripheral Vein, Percutaneous Approach (ICD-10-PCS; 2020-05-31)
DX: S72.001A Fracture of unspecified part of neck of right femur, initial encounter for closed fracture (principal); N17.0 Acute kidney failure with tubular necrosis; D62 Acute posthemorrhagic anemia; I13.0 Hypertensive heart and chronic kidney disease with heart failure and stage 1 through stage 4 chronic kidney disease, or unspecified chronic kidney disease; I50.32 Chronic diastolic (congestive) heart failure; J98.11 Atelectasis; I48.20 Chronic atrial fibrillation, unspecified; J90 Pleural effusion, not elsewhere classified; Z79.01 Long term (current) use of anticoagulants; Z79.899 Other long term (current) drug therapy; Z86.73 Personal history of transient ischemic attack (TIA), and cerebral infarction without residual deficits; I25.10 Atherosclerotic heart disease of native coronary artery without angina pectoris; N18.9 Chronic kidney disease, unspecified; W01.0XXA Fall on same level from slipping, tripping and stumbling without subsequent striking against object, initial encounter; Y92.009 Unspecified place in unspecified non-institutional (private) residence as the place of occurrence of the external cause; Z96.642 Presence of left artificial hip joint; N32.81 Overactive bladder; I70.0 Atherosclerosis of aorta; M19.90 Unspecified osteoarthritis, unspecified site; D69.6 Thrombocytopenia, unspecified; D47.2 Monoclonal gammopathy; F32.9 Major depressive disorder, single episode, unspecified; I27.20 Pulmonary hypertension, unspecified; E87.5 Hyperkalemia; E83.52 Hypercalcemia; M51.36 Other intervertebral disc degeneration, lumbar region; S30.0XXA Contusion of lower back and pelvis, initial encounter
CPT/HCPCS: 36415; 71045-TC; 73501; 73502; 73700-TC; 80048-TC; 80053-TC; 80061-TC; 80076-TC; 80162-TC; 81000-TC; 82550-TC; 82570-TC; 82728-TC; 83540-TC; 83735-TC; 83970; 84100-TC; 84155; 84155-TC; 84165; 84300-TC; 84443-TC; 85025-TC; 85027-TC; 85610-TC; 85730-TC; 86850-TC; 86921-TC; 87081-TC; 87086-TC; 87186-TC; 88305-TC; 88311-TC; 93307-TC; 97110-TC; 97116-TC; 97530-TC; A4217; A6209; C1713; C1776; G0378; J0690; J1100; J1650; J1940; J2270; J2370; J2405; J3370; J3430; J3490; J7030; J7060; J7120; P9016-BL; U0003-CS

== ENCOUNTER 2021-02-11 08:33 | Inpatient (IN) | payer MEDICARE, BC ==
[~2021-02-11] VITALS: Ht 172.7 cm; Wt 74.8 kg
[~2021-02-11 08:33] MED LIST changes: -ESOM40CA PO; +PANT40TA2 PO; +WARF7.5T23 PO; -myrbetriq PO
--- NOTE | 2021-02-11 08:50 | NUR ---
SOB x 2 weeks; on home oxygen. Patient a/ox4, rapid breathing no sob noted, , on 3lpm via nc with spo2 of 99%. Attached to the behavioral medical director.
--- NOTE | 2021-02-11 08:52 | NUR ---
THE PATIENT IS BIBRA 40 FROM HOME FOR C/O SOB x 2 weeks. The patient is on oxygen at home. Once arriaved oxygen saturation in room air at 87%. The patient`s oxygen saturation at 93%. The patient has c/o SOB but the respiration is regular and unlabored. The patient is attached on a monitor. Will continue to monitor.
[2021-02-11 09:01] LABS: BASOPHILS % (AUTO) 0.3 % (0.0-2.0); EOSINOPHILS % (AUTO) 0.4 % (0.0-6.0); HEMATOCRIT 32 % (33-45); HEMOGLOBIN 9.9 g/dL (11.5-14.8); LYMPHOCYTES # (AUTO) 0.8 /CMM (0.8-4.8); LYMPHOCYTES % (AUTO) 20.6 % (20.0-44.0); MEAN CORPUSCULAR HGB CONC 31 g/dl (31.0-36.0); MEAN CORPUSCULAR VOLUME 91 fL (82-100); MONOCYTES # (AUTO) 0.3 /CMM (0.1-1.30); MONOCYTES % (AUTO) 7.3 % (2.0-12.0); NEUTROPHILS # (AUTO) 2.9 /CMM (1.8-8.9); NEUTROPHILS % (AUTO) 71.4 % (43.0-81.0); PLATELET COUNT (AUTO) 110 /CMM (150-450); RED BLOOD CELL COUNT(AUTO) 3.49 MIL/uL (4.0-5.2)
[2021-02-11] MEDS ORDERED: WARF-58 PO (09:06)
[2021-02-11] MEDS ORDERED: NUT.237L28 PO (09:06)
[2021-02-11] MEDS ORDERED: DOCU-141 PO (09:06)
[2021-02-11] MEDS ORDERED: CRAN250T2 PO (09:06)
[2021-02-11] MEDS ORDERED: CALC250T2 PO (09:06)
--- NOTE | 2021-02-11 09:10 | NUR ---
PAGED [facility]. NO CALL BACK.
[2021-02-11 09:11] LABS: CHLORIDE 102 mmol/L (98-107); CREATININE 0.8 mg/dL (0.6-1.3); GLUCOSE 105 mg/dL (74-106); POTASSIUM 5.1 mmol/L (3.5-5.1); SODIUM SERUM 145 mmol/L (136-145); UREA NITROGEN, BLOOD 27 mg/dL (7-18)
[2021-02-11 09:14] LABS: CARBON DIOXIDE 46 mmol/L (21-32)
[2021-02-11 09:24] LABS: ALANINE AMINOTRANSFERASE 21 U/L (12-78); ALBUMIN 3.4 g/dL (3.4-5.0); ALKALINE PHOSPHATASE 79 U/L (46-116); ASPARTATE AMINOTRANSFERASE 27 U/L (15-37); B-TYPE NATRIURETIC PEPTIDE 3225 PG/ML (0-125); BILIRUBIN,DIRECT 0.2 mg/dL (0.0-0.2); BILIRUBIN,TOTAL 0.4 mg/dL (0.2-1.0); TOTAL PROTEIN, SERUM 7.5 g/dL (6.4-8.2)
[2021-02-11] MEDS ORDERED: FUROSEMIDE 20 MG/2 ML VIAL ONE (09:36)
[2021-02-11] MEDS ORDERED: FUROSEMIDE 20 MG/2 ML VIAL IV ONE (10:00)
--- NOTE | 2021-02-11 10:06 | NUR ---
RAPID COVID19 TEST.
--- NOTE | 2021-02-11 10:16 | NUR ---
NURSING SUP GAVE BED 114-1.
--- NOTE | 2021-02-11 10:23 | NUR ---
REPORT GIVEN TO MIKE SPENCER FOR JAVIER.
--- NOTE | 2021-02-11 10:24 | NUR ---
FAMILY TONY UPDATED OF ADMISSION.
--- NOTE | 2021-02-11 11:00 | NUR ---
PATIENT RECEIVED IN BED ON 3L NASAL CANNULA. PATIENT IS ALERT AND ORIENTED X 4. PATIENT AMBULATORY WITH ASSIST FROM GURNEY TO BED. PATIENT ON MONITOR SHOWING AFIB 60-70. PATIENT HAS LAC 20 AND RH 20 INTACT AND FLUSHED WELL. ALL SAFETY MEASURES IN PLACE, WILL CONTINUE TO MONITOR
--- NOTE | 2021-02-11 11:13 | NUR ---
PATIENT TRANSFERRED TOR OOM 114-1 VIA ACLS PROTOCOL. NO DISTRESS NOTED. ENDORSED TO MIKE SPENCER.
[2021-02-11 12:00] VITALS: BP 134/59
[2021-02-11] MEDS ORDERED: HYDROCODONE/APAP 5/325MG TABLET PO PRN (12:30)
[2021-02-11] MEDS ORDERED: ONDANSETRON HCL/PF 4 MG/2 ML VIAL IVP PRN (12:30)
[2021-02-11] MEDS ORDERED: ACETAMINOPHEN 325 MG TABLET PO PRN (12:30)
[2021-02-11] MEDS ORDERED: TRAMADOL HCL 50 MG TABLET PO PRN (12:30)
[2021-02-11] MEDS ORDERED: Z GUARD REMEDY 2 OZ OINT TP PRN (12:30)
[2021-02-11] MEDS ORDERED: NITROGLYCERIN 0.4 MG/TAB BOTTLE SL PRN (12:30)
[2021-02-11] MEDS: ATENOLOL 50 MG TABLET PO SCH (12:37)
[2021-02-11] MEDS: DIGOXIN 0.125 MG TABLET PO SCH (14:43)
[2021-02-11 16:00] VITALS: BP_SYST 134; BP_SYST 136; BP_DIAS 60
[2021-02-11] MEDS ORDERED: POTASSIUM CHLORIDE 10 MEQ TABLET.SA PO SCH (17:00)
[2021-02-11] MEDS ORDERED: ISOSORBIDE DINITRATE (10MG) 10 MG TABLET PO SCH (17:00)
[2021-02-11] MEDS: DOCUSATE SODIUM 100 MG CAPSULE PO SCH (17:49)
[2021-02-11] MEDS: FUROSEMIDE 40 MG/4 ML VIAL IV SCH (17:49)
[2021-02-11] MEDS: GLUCERNA SHAKE 237 ML CAN PO SCH (18:02)
[2021-02-11] MEDS: ISOSORBIDE DINITRATE (5MG) 5 MG TABLET PO SCH (18:45)
--- NOTE | 2021-02-11 19:10 | NUR ---
PATIENT REMAINS IN BED NO ACUTE CHANGE IN CONDITION. PATIENT REMAINS 3L NASAL CANNULA. PATIENT ON CARDIAC DIET WITH FEEDING ASSIST. ALL SAFETY MEASURES IN PLACE. ALL NEEDS ENDORSED TO ONCOMING RN FOR JAVIER
--- NOTE | 2021-02-11 19:10 | NUR ---
RN NOTE RECEIVED PT IN BED WITH HEAD OF BED ELEVATED. PT IS ALERT AND ORIENTED X 3. ON 3L OF O2 VIA NC. RESPIRATIONS UNLABORED. DENIES PAIN OR DISCOMFORT. AFIB ON THE WAITER/WAITRESS THIRD CLASS. LAC IV AND RIGHT HAND IV BOTH FLUSHED AND PATENT. PLAN OF CARE DISCUSSED. STRICT I AND O TO BE DONE. PT VERBALIZED UNDERSTANDING. CALL LIGHT WITHIN REACH, SAFETY MEASURES IN PLACE PER PROTOCOL, BED ALARM ON, BED LOCKED AND IN LOW POSITION, SIDE RAILS UP X 2, WILL MONITOR
[2021-02-11 20:00] VITALS: BP 120/65
[2021-02-11] MEDS: MIRTAZAPINE 15 MG TABLET PO SCH (21:05)
[2021-02-11] MEDS: ATORVASTATIN 40 MG TABLET PO SCH (21:05)
[2021-02-12] VITALS: BP 137/61
--- NOTE | 2021-02-12 01:05 | NUR ---
BREAK UP WORKER NOTES PATIENT SLEEPING IN BED; A/OX4 & ABLE TO MAKE NEEDS KNOWN ON O2 4LPM VIA N/C; TOLERATING WELL WITH NO SOB. EXTERNAL TELE MONITOR REEDS AFIB IN 80'S; MD AWARE. DENIES PAIN OR DISCOMFORT AT THIS TIME. LAC #20G S/L; PATENT AND INTACT. RIGHT HAND #20G PATENT AND INTACT. SAFETY MEASURES IN PLACE: BED IN LOWEST LOCKED POSITION, SIDE RAILS UPX2, CALL LIGHT WITHIN EASY REACH, BED ALARMS ON. WILL CONTINUE PLAN OF CARE.
[2021-02-12 04:00] VITALS: BP 137/64
[2021-02-12 05:56] LABS: BASOPHILS % (AUTO) 0.3 % (0.0-2.0); EOSINOPHILS % (AUTO) 0.4 % (0.0-6.0); HEMATOCRIT 30 % (33-45); HEMOGLOBIN 8.9 g/dL (11.5-14.8); LYMPHOCYTES # (AUTO) 0.4 /CMM (0.8-4.8); LYMPHOCYTES % (AUTO) 11.2 % (20.0-44.0); MEAN CORPUSCULAR HGB CONC 30 g/dl (31.0-36.0); MEAN CORPUSCULAR VOLUME 92 fL (82-100); MONOCYTES # (AUTO) 0.3 /CMM (0.1-1.30); MONOCYTES % (AUTO) 9.4 % (2.0-12.0); NEUTROPHILS # (AUTO) 2.8 /CMM (1.8-8.9); NEUTROPHILS % (AUTO) 78.7 % (43.0-81.0); PLATELET COUNT (AUTO) 99 /CMM (150-450); RED BLOOD CELL COUNT(AUTO) 3.21 MIL/uL (4.0-5.2); WHITE BLOOD COUNT (AUTO) 3.5 K/uL (4.3-11.0)
--- NOTE | 2021-02-12 06:15 | NUR ---
CARPENTER PACKING CLOSING NOTES PATIENT SLEEPING IN BED; A/OX4 & ABLE TO MAKE NEEDS KNOWN. ON O2 3LPM VIA N/C; TOLERATING WELL WITH NO SOB. EXTERNAL TELE MONITOR READS AFIB IN 70'S; MD AWARE. DENIES PAIN OR DISCOMFORT AT THIS TIME. LAC #20G S/L; PATENT AND INTACT. RIGHT HAND #20G PATENT AND INTACT. SKIN CARE DONE. SAFETY MEASURES IN PLACE: BED IN LOWEST LOCKED POSITION, SIDE RAILS UPX2, CALL LIGHT WITHIN EASY REACH, BED ALARMS ON. WILL ENDORSE PLAN OF CARE TO ONCOMING MORNING RN.
[2021-02-12 07:04] LABS: THYROID STIMULATING HORMONE 0.404 uIU/mL (0.358-3.74)
[2021-02-12 07:08] LABS: CALCIUM, SERUM 9.7 mg/dL (8.5-10.1); CREATININE 0.9 mg/dL (0.6-1.3); MAGNESIUM 1.9 mg/dL (1.8-2.4); PHOSPHORUS 4.1 mg/dL (2.5-4.9); POTASSIUM 4.7 mmol/L (3.5-5.1)
[2021-02-12 08:00] VITALS: BP 120/61
--- NOTE | 2021-02-12 08:00 | NUR ---
PATIENT RECEIVED IN BED ASLEEP BUT EASILY AROUSABLE. PATIENT ALERT AND ORIENTED X 3. PATIENT ON 3L NASAL CANNULA O2 SAT 99%. PATIENT IS SOB. PATIENT ON MONITOR SHOWING AFIB 80s. PATIENT HAS SACRAL WOUND, WOUND CONSULT ORDERED. PATIENT STRICT I/O. ALL SAFETY MEASURES IN PLACE. WILL CONTINUE TO MONITOR
[2021-02-12] MEDS: GLUCERNA SHAKE 237 ML CAN PO SCH ×2 (08:05→16:28)
[2021-02-12] MEDS: PANTOPRAZOLE 40 MG TABLET.DR PO SCH (08:06)
[2021-02-12] MEDS: VENLAFAXINE XR 37.5 MG CAP.SR.24H PO SCH (08:06)
[2021-02-12] MEDS: FUROSEMIDE 40 MG/4 ML VIAL IV SCH ×3 (08:06→16:28)
[2021-02-12] MEDS: DOCUSATE SODIUM 100 MG CAPSULE PO SCH ×2 (08:06→16:27)
[2021-02-12] MEDS: BENAZEPRIL HCL 10 MG TABLET PO SCH (08:08)
[2021-02-12] MEDS: ATENOLOL 50 MG TABLET PO SCH (08:09)
[2021-02-12] MEDS: ISOSORBIDE DINITRATE (5MG) 5 MG TABLET PO SCH ×2 (08:09→16:27)
--- NOTE | 2021-02-12 08:30 | NUR ---
MD BETH NOTIFIED OF CRITICAL VALUE CO2 45, WILL CONTINUE TO FOLLOW UP
[2021-02-12] MEDS ORDERED: ATENOLOL 50 MG TABLET PO SCH (09:00)
[2021-02-12 12:00] VITALS: BP 126/50
--- NOTE | 2021-02-12 13:30 | NUR ---
PATIENT OBSERVED IN BED WITH NASAL CANNULA REMOVED, DIFFICULT TO AROUSE. O2 SAT CHECKED IN 50%. PATIENT NASAL CANNULA REPLACED, INCREASED TO 5L, O2 SAT 95%. PATIENT MORE ALERT, STATING THAT SHE FAINTED PREVIOUSLY. MD SOLOMON MADE AWARE, WILL CONTINUE TO MONITOR
[2021-02-12 16:00] VITALS: BP 133/56
[2021-02-12] MEDS: CARVEDILOL 12.5 MG TABLET PO SCH (16:27)
--- NOTE | 2021-02-12 19:00 | NUR ---
PATIENT REMAINS IN BED, CURRENTLY ON 4L NASAL CANNULA, INCREASED FROM 3L THIS AM. PATIENT IV ACCESS REMAINS INTACT, NO SIGNS OF INFECTION OR INFILTRATION. PATIENT REMAINS ON MONITOR SHOWING AFIB. BED ALARM ON, ALL SAFETY MEASURES IN PLACE. ALL NEEDS ENDORSED TO ALL CHILEL JAVIER
--- NOTE | 2021-02-12 19:46 | NUR ---
RN NOTE PATIENT A/OX4, ABLE TO MAKE NEEDS KNOWN. OBSERVED PATIENT NASAL CANNULA REMOVED. ASSISTED PATIENT BACK ON O2 4LPM VIA NC. O2 SAT 94%. DENIES ANY SOB OR ANY DISTRESS. NO S/S OF PAIN. TELE MONITOR ON, HR 80'S. WITH LAC AND RH #20, PATENT AND INTACT. BED ALARM ON, BED LOCKED AND IN LOWEST POSITION. CALL LIGHT WITHIN REACH. SAFETY MEASURES IMPLEMENTED. CALL LIGHT WITHIN REACH. WILL CONTINUE TO MONITOR.
[2021-02-12 20:00] VITALS: BP 112/58
--- NOTE | 2021-02-12 21:00 | NUR ---
OFFERED PATIENT IF OKAY TO INSERT BLAND CATHETER. PATIENT STATED "NO, I DON'T WANT BLAND." RISKS AND BENEFITS EXPLAINED. WILL CONT TO MONITOR.
[2021-02-12] MEDS: ATORVASTATIN 40 MG TABLET PO SCH (21:26)
[2021-02-12] MEDS: MIRTAZAPINE 15 MG TABLET PO SCH (21:26)
[2021-02-12] MEDS: LATANOPROST EYE DROP 0.005% 2.5 ML BOTTLE EACHEYE SCH (21:27)
[2021-02-13] VITALS: BP 107/63
[2021-02-13 04:00] VITALS: BP 144/72
[2021-02-13 06:37] LABS: BASOPHILS % (AUTO) 0.2 % (0.0-2.0); EOSINOPHILS % (AUTO) 0.5 % (0.0-6.0); HEMATOCRIT 30 % (33-45); HEMOGLOBIN 9.3 g/dL (11.5-14.8); LYMPHOCYTES # (AUTO) 0.4 /CMM (0.8-4.8); LYMPHOCYTES % (AUTO) 11.6 % (20.0-44.0); MEAN CORPUSCULAR HGB CONC 31 g/dl (31.0-36.0); MEAN CORPUSCULAR VOLUME 91 fL (82-100); MONOCYTES # (AUTO) 0.3 /CMM (0.1-1.30); MONOCYTES % (AUTO) 8.1 % (2.0-12.0); NEUTROPHILS # (AUTO) 2.9 /CMM (1.8-8.9); NEUTROPHILS % (AUTO) 79.6 % (43.0-81.0); PLATELET COUNT (AUTO) 99 /CMM (150-450); RED BLOOD CELL COUNT(AUTO) 3.32 MIL/uL (4.0-5.2); WHITE BLOOD COUNT (AUTO) 3.6 K/uL (4.3-11.0)
--- NOTE | 2021-02-13 06:40 | NUR ---
RN NOTE PATIENT A/OX4, ABLE TO MAKE NEEDS KNOWN. ON O2 4LPM VIA NC. O2 SAT 98%. DENIES ANY SOB OR ANY DISTRESS. NO S/S OF PAIN. WITH LAC AND RH #20, PATENT AND INTACT. VOIDED X3. KEPT CLEAN AND DRY. ALL DUE MEDS GIVEN ORDERED. BED ALARM ON, BED LOCKED AND IN LOWEST POSITION. CALL LIGHT WITHIN REACH. SAFETY MEASURES IMPLEMENTED. CALL LIGHT WITHIN REACH. WILL ENDORSE TO ONCOMING SHIFT.
[2021-02-13 07:12] LABS: ALANINE AMINOTRANSFERASE 18 U/L (12-78); ALKALINE PHOSPHATASE 68 U/L (46-116); ASPARTATE AMINOTRANSFERASE 23 U/L (15-37); BILIRUBIN,TOTAL 0.4 mg/dL (0.2-1.0); CALCIUM, SERUM 9.4 mg/dL (8.5-10.1); CHLORIDE 102 mmol/L (98-107); CREATININE 0.8 mg/dL (0.6-1.3); GLUCOSE 109 mg/dL (74-106); MAGNESIUM 1.7 mg/dL (1.8-2.4); PHOSPHORUS 4.1 mg/dL (2.5-4.9); POTASSIUM 4.2 mmol/L (3.5-5.1); SODIUM SERUM 148 mmol/L (136-145); TOTAL PROTEIN, SERUM 6.7 g/dL (6.4-8.2); UREA NITROGEN, BLOOD 30 mg/dL (7-18)
[2021-02-13 07:39] LABS: CARBON DIOXIDE 53 mmol/L (21-32)
[2021-02-13 08:00] VITALS: BP 139/72
[2021-02-13] MEDS: CARVEDILOL 12.5 MG TABLET PO SCH ×2 (08:02→17:51)
[2021-02-13] MEDS: VENLAFAXINE XR 37.5 MG CAP.SR.24H PO SCH (08:02)
[2021-02-13] MEDS: BENAZEPRIL HCL 10 MG TABLET PO SCH (08:03)
[2021-02-13] MEDS: DOCUSATE SODIUM 100 MG CAPSULE PO SCH ×2 (08:03→17:50)
[2021-02-13] MEDS: PANTOPRAZOLE 40 MG TABLET.DR PO SCH (08:03)
[2021-02-13] MEDS: ISOSORBIDE DINITRATE (5MG) 5 MG TABLET PO SCH ×2 (08:03→17:50)
[2021-02-13] MEDS: FUROSEMIDE 40 MG/4 ML VIAL IV SCH ×3 (08:03→17:51)
[2021-02-13] MEDS: GLUCERNA SHAKE 237 ML CAN PO SCH ×2 (08:03→17:51)
--- NOTE | 2021-02-13 09:09 | NUR ---
PATIENT DOWNGRADED TO MEDSURG STATUS PER MD LUND
--- NOTE | 2021-02-13 09:34 | NUR ---
MD SOLOMON MADE AWARE OF CRITICAL CO2 53, MG 1.7, NA 148. AWAITING ORDERS
[2021-02-13] MEDS: Magnesium 1GM/D5W 100ML PREMIX 100 ML IV SCH ×2 (11:15→12:15)
--- NOTE | 2021-02-13 12:16 | NUR ---
lasix given bp 113/62
[2021-02-13 13:36] LABS: ABG BASE EXCESS 23.8 mmol/L; ABG OXYGEN SATURATION 94.5 % (92.0-98.5); ABG PCO2 86.5 mmHg (35.0-45.0); ABG PH 7.398 (7.350-7.450); ABG PO2 74.3 mmHg (75.0-100.0); MetHb 0.3 % (0.0-1.5); O2Hb 93.3 % (94.0-97.0); SITE, ABG Right Radial; VENT MODE, BG 4L NC
[2021-02-13 16:00] VITALS: BP 108/58
--- NOTE | 2021-02-13 17:00 | NUR ---
LASIX GIVEN BP 105/58
--- NOTE | 2021-02-13 19:34 | NUR ---
PATIENT REMAINS IN BED, NO ACUTE CHANGE IN CONDITION, ALL SAFETY MEASURES IN PLACE, ALL PATIENT NEEDS ENDORSED TO ONCOMING RN FOR JAVIER
--- NOTE | 2021-02-13 19:40 | NUR ---
RN NOTE, PATIENT IN BED A/OX4, ABLE TO MAKE VERBALIZE NEEDS AND CONCERNS, ON O2 4LPM VIA NC WITH OPTIMAL O2 SAT LEVEL, BREATHING EVEN AND UNLABORED, NO SOB/ACUTE DISTRESS NOTED AT THIS TIME, LEFT AC IV ACCESS PATENT AND INTACT, KEPT CLEAN AND DRY, ALL NEEDS PROVIDED, BED ALARM ON, BED LOCKED AND IN LOWEST POSITION, CALL LIGHT WITHIN REACH, WILL CONTINUE TO MONITOR CLOSELY.
[2021-02-13 20:00] VITALS: BP 124/71
[2021-02-13] MEDS: LATANOPROST EYE DROP 0.005% 2.5 ML BOTTLE EACHEYE SCH (21:08)
[2021-02-13] MEDS: ATORVASTATIN 40 MG TABLET PO SCH (21:08)
[2021-02-13] MEDS: MIRTAZAPINE 15 MG TABLET PO SCH (21:08)
[2021-02-14 04:00] VITALS: BP 133/79
[2021-02-14 05:54] LABS: BASOPHILS % (AUTO) 0.2 % (0.0-2.0); EOSINOPHILS % (AUTO) 0.6 % (0.0-6.0); HEMATOCRIT 28 % (33-45); HEMOGLOBIN 8.8 g/dL (11.5-14.8); LYMPHOCYTES # (AUTO) 0.4 /CMM (0.8-4.8); LYMPHOCYTES % (AUTO) 12.2 % (20.0-44.0); MEAN CORPUSCULAR HGB CONC 31 g/dl (31.0-36.0); MEAN CORPUSCULAR VOLUME 90 fL (82-100); MONOCYTES # (AUTO) 0.4 /CMM (0.1-1.30); NEUTROPHILS # (AUTO) 2.8 /CMM (1.8-8.9); PLATELET COUNT (AUTO) 94 /CMM (150-450); RED BLOOD CELL COUNT(AUTO) 3.15 MIL/uL (4.0-5.2); WHITE BLOOD COUNT (AUTO) 3.6 K/uL (4.3-11.0)
[2021-02-14 06:13] LABS: CALCIUM, SERUM 9.1 mg/dL (8.5-10.1); CHLORIDE 100 mmol/L (98-107); CREATININE 0.7 mg/dL (0.6-1.3); GLUCOSE 111 mg/dL (74-106); MAGNESIUM 1.8 mg/dL (1.8-2.4); PHOSPHORUS 3.3 mg/dL (2.5-4.9); POTASSIUM 3.6 mmol/L (3.5-5.1); SODIUM SERUM 150 mmol/L (136-145); UREA NITROGEN, BLOOD 26 mg/dL (7-18)
[2021-02-14 07:11] LABS: CARBON DIOXIDE 55 mmol/L (21-32)
--- NOTE | 2021-02-14 07:35 | NUR ---
RN NOTES, WITH EPISODE OF DESATURATION LAST NIGHT WHEN ABOUT TO USE COMMODE, KEPT HER IN BED, NO SIGNIFICANT CHANGE IN CONDITION DURING THE REST OF THE SHIFT, ENDORSED TO CLARI SPENCER FOR CONTINUATION OF CARE.
[2021-02-14 08:00] VITALS: BP 124/75
--- NOTE | 2021-02-14 09:08 | NUR ---
WOUND CARE CONSULT: PT PRESENTS WITH SACRAL SCARRING, PRESENT ON ADMISSION. PT NOTED TO BE INCONTINENT. RECOMMENDATIONS MADE FOR SKIN PROTECTION. DISCUSSED WITH NURSING STAFF. IN AGREEMENT WITH PLAN OF CARE. Addendum: 02/14/21 at 0909 by JANEEN YAN WNDNU Amended: Links added.
--- NOTE | 2021-02-14 09:45 | NUR ---
Informed Dr Andrea regarding patient's Carbon dioxide results of 55 today
[2021-02-14] MEDS: FUROSEMIDE 40 MG/4 ML VIAL IV SCH ×2 (09:57→14:23)
[2021-02-14] MEDS: VENLAFAXINE XR 37.5 MG CAP.SR.24H PO SCH (09:59)
[2021-02-14] MEDS: PANTOPRAZOLE 40 MG TABLET.DR PO SCH (10:00)
[2021-02-14] MEDS: ISOSORBIDE DINITRATE (5MG) 5 MG TABLET PO SCH ×2 (10:00→17:15)
[2021-02-14] MEDS: BENAZEPRIL HCL 10 MG TABLET PO SCH (10:00)
[2021-02-14] MEDS: IPRATROPIUM NEB FS 0.5 MG/2.5 ML AMPUL.NEB NEB SCH ×3 (10:00→20:17)
[2021-02-14] MEDS: CARVEDILOL 12.5 MG TABLET PO SCH ×2 (10:02→17:16)
[2021-02-14] MEDS: DIGOXIN 0.125 MG TABLET PO SCH (10:02)
[2021-02-14] MEDS: GLUCERNA SHAKE 237 ML CAN PO SCH ×2 (10:03→17:00)
--- NOTE | 2021-02-14 10:13 | NUR ---
RT NOTE : PATIENT WENT FOR CT SCAN AT THIS POINT IN TIME.
[2021-02-14] MEDS: DOCUSATE SODIUM 100 MG CAPSULE PO SCH ×2 (10:42→17:15)
[2021-02-14 10:55] LABS: ABG BASE EXCESS 23.3 mmol/L; ABG OXYGEN SATURATION 97.3 % (92.0-98.5); ABG PCO2 98.5 mmHg (35.0-45.0); ABG PH 7.348 (7.350-7.450); ABG PO2 101.6 mmHg (75.0-100.0); AaDO2 70.3 mmHg; COHb 1.1 % (0.5-1.5); O2Hb 96.2 % (94.0-97.0); SITE, ABG Left Radial; VENT MODE, BG 5 L NC
--- NOTE | 2021-02-14 11:05 | NUR ---
Received abg results of Pc02 areterial. Per Dr Andrea communication to RT assisgned to lower the 02 via n/c to 2 liters to keep 02 saturation of 88-90%.
[2021-02-14 13:10] VITALS: BP 124/75
--- NOTE | 2021-02-14 13:38 | NUR ---
Patient noted with 02 sat of 79% on 2 liters nasal canula , RT titrated to 3 liters but 02 saturation noted with 55-69%. Patient placed on simple mask at 6 liters with 02 saturation of 96% titrated to 4 litesr with 02 saturation 0f 95% titrated to 3 liters and tolerated well. Patient placed on simple mask 1 liters with 02 sat of 91%. MD Andrea made aware and received orders for venutri mask to keep o2 of 88-90% and to check ABG. RT in room and aware. Patient currently stable and verbal. Will monitor closely.
[2021-02-14 15:54] LABS: ABG BASE EXCESS 35.5 mmol/L; ABG OXYGEN SATURATION 86.8 % (92.0-98.5); ABG PCO2 87.4 mmHg (35.0-45.0); ABG PH 7.484 (7.350-7.450); ABG PO2 47.8 mmHg (75.0-100.0); AaDO2 100.2 mmHg; COHb 1.1 % (0.5-1.5); MetHb 0.1 % (0.0-1.5); O2Hb 85.8 % (94.0-97.0); SITE, ABG Left Radial; VENT MODE, BG 35% on 9 L venturi
--- NOTE | 2021-02-14 15:58 | NUR ---
Patient on venturi mask and currently saturating 89-90%. HOB kept elevated. Patient monitored closely. Addendum: 02/14/21 at 1611 by FRANC STONER RN venturi mask setting 35% on 9 liters
[2021-02-14 16:00] VITALS: BP 113/73
--- NOTE | 2021-02-14 16:11 | NUR ---
PER ABG RESULTS SHOWN TO MD BY RT , NEW ORDERS TO CHANGE TO SIMPLE MASK AT 10 LITERS.
--- NOTE | 2021-02-14 16:17 | NUR ---
RT NOTE: DR. ROCHA SAID TO PLACED PATIENT ON 10 L SM AFTER BEEN SHOWN PATIENT ABG RESULT. DR ROCHA TO TITRATE TO 02 TO MANITAIN SP02 88 TO 90%.
--- NOTE | 2021-02-14 19:52 | NUR ---
RN CLOSING NOTES Patient is alert and oriented with episodes of forgetfulness . Patient is on venturi mask at 35 % and 9 liters with 02 saturating 88-91% . Patient took out her iv to left ac and new iv line placed to left hand 24 gauze . Iv site patent. Patient's bed is in lowest and locked position. Calll ight withi n reach. Endorsed to next shift for JAVEIR.Noted with intake of 550 cc of fluids and output of voiding urine x 4 during shift with heavy soiling.
[2021-02-14 20:00] VITALS: BP 122/65
--- NOTE | 2021-02-14 20:00 | NUR ---
MS RN NOTE PT IN BED AWAKE BUT CONFUSED. A/O X 1. PT ON VENTURI MASK 9L@ 35% 02 SAT 90%. KEPT HOB ELEVATED. PT REMOVE THE MASK AT TIMES O2 DROPS TO 76%. REMINDED FREQUENTLY TO THE PT NOT TO REMOVE THE MASK. NO DISTRESS OR DISCOMFORT NOTED. DENIES PAIN. LT HAND #24 SL INTACT AND PATENT. SIDE RAILS UP X 2 AND CALL LIGHT WITHIN REACH. VSS. CONTINUE TO MONITOR HER. KEPT HER DRY AND CLEAN. REPOSITION HER Q2H.
--- NOTE | 2021-02-14 21:24 | NUR ---
MS RN NOTE PT KEPT ON REMOVING HER VENTURI MASK, O2 SAT DROPPING TO 70"S. GAIL GRACIA DNP INFORMED AND RECEIVED NEW ORDER OF BILATERAL SOFT WRIST RESTRAINTS, ORDER NOTED AND CARRIED OUT. REMINDED PT IMPORTANCE OF THE MASK ON. PT IS CONFUSED AND NEED REINFORCEMENT.
[2021-02-14] MEDS: ATORVASTATIN 40 MG TABLET PO SCH (21:56)
[2021-02-14] MEDS: MIRTAZAPINE 15 MG TABLET PO SCH (21:56)
[2021-02-14] MEDS: LATANOPROST EYE DROP 0.005% 2.5 ML BOTTLE EACHEYE SCH (21:57)
--- NOTE | 2021-02-14 23:47 | NUR ---
MS RN NOTE PT IN BED ASLEEP, EASILY AROUSABLE. NO DISTRESS OR DISCOMFORT NOTED. O2 SAT 90%. PT REMAIN WITH BILATERAL SOFT RESTRAINTS. CONTINUE TO MONITOR HER.
[2021-02-15] MEDS: IPRATROPIUM NEB FS 0.5 MG/2.5 ML AMPUL.NEB NEB SCH ×4 (02:05→20:32)
[2021-02-15 04:00] VITALS: BP 153/77
[2021-02-15 05:54] LABS: BASOPHILS % (AUTO) 0.1 % (0.0-2.0); HEMATOCRIT 30 % (33-45); HEMOGLOBIN 9.3 g/dL (11.5-14.8); LYMPHOCYTES # (AUTO) 0.5 /CMM (0.8-4.8); LYMPHOCYTES % (AUTO) 12.3 % (20.0-44.0); MEAN CORPUSCULAR HGB CONC 31 g/dl (31.0-36.0); MEAN CORPUSCULAR VOLUME 90 fL (82-100); MONOCYTES # (AUTO) 0.3 /CMM (0.1-1.30); MONOCYTES % (AUTO) 8.4 % (2.0-12.0); NEUTROPHILS # (AUTO) 3.1 /CMM (1.8-8.9); NEUTROPHILS % (AUTO) 79.2 % (43.0-81.0); PLATELET COUNT (AUTO) 108 /CMM (150-450); RED BLOOD CELL COUNT(AUTO) 3.32 MIL/uL (4.0-5.2)
--- NOTE | 2021-02-15 06:38 | NUR ---
MS RN NOTE PT IN BED AWAKE, NO DISTRESS OR DISCOMFORT NOTED. DENIES PAIN. PT REMAIN WITH BILATERAL SOFT WRIST RESTRAINTS. SIDE RAILS UP X 3 AND CALL LIGHT WITHIN REACH. WILL ENDORSE TO DAY SHIFT NURSE FOR CONTINUE TO CARE.
[2021-02-15 07:40] LABS: ALANINE AMINOTRANSFERASE 16 U/L (12-78); ALKALINE PHOSPHATASE 63 U/L (46-116); ASPARTATE AMINOTRANSFERASE 22 U/L (15-37); BILIRUBIN,TOTAL 0.6 mg/dL (0.2-1.0); CALCIUM, SERUM 9.5 mg/dL (8.5-10.1); CHLORIDE 99 mmol/L (98-107); CREATININE 0.7 mg/dL (0.6-1.3); GLUCOSE 95 mg/dL (74-106); MAGNESIUM 1.8 mg/dL (1.8-2.4); PHOSPHORUS 3.1 mg/dL (2.5-4.9); SODIUM SERUM 151 mmol/L (136-145); TOTAL PROTEIN, SERUM 6.8 g/dL (6.4-8.2); UREA NITROGEN, BLOOD 25 mg/dL (7-18)
[2021-02-15 07:57] LABS: CARBON DIOXIDE 52 mmol/L (21-32)
[2021-02-15 08:00] VITALS: BP 136/87
[2021-02-15] MEDS: GLUCERNA SHAKE 237 ML CAN PO SCH ×2 (08:00→17:54)
[2021-02-15 08:24] LABS: ABG OXYGEN SATURATION 90.8 % (92.0-98.5); ABG PCO2 90.9 mmHg (35.0-45.0); ABG PH 7.445 (7.350-7.450); ABG PO2 61.2 mmHg (75.0-100.0); AaDO2 82.7 mmHg; COHb 1.2 % (0.5-1.5); MetHb 0.5 % (0.0-1.5); O2Hb 89.3 % (94.0-97.0); SITE, ABG Right Radial; VENT MODE, BG VENTURI MASK 35%
[2021-02-15] MEDS: DOCUSATE SODIUM 100 MG CAPSULE PO SCH ×2 (09:20→17:33)
[2021-02-15] MEDS: VENLAFAXINE XR 37.5 MG CAP.SR.24H PO SCH (09:21)
[2021-02-15] MEDS: PANTOPRAZOLE 40 MG TABLET.DR PO SCH (09:21)
[2021-02-15] MEDS: CARVEDILOL 12.5 MG TABLET PO SCH ×2 (09:21→17:33)
[2021-02-15] MEDS: BENAZEPRIL HCL 10 MG TABLET PO SCH (09:21)
[2021-02-15] MEDS: FUROSEMIDE 40 MG/4 ML VIAL IV SCH (09:22)
[2021-02-15] MEDS: POTASSIUM CHLORIDE 20 MEQ TAB.PRT.SR PO SCH ×3 (10:07→12:03)
--- NOTE | 2021-02-15 11:07 | NUR ---
Endorsed to nurse for JAVIER and regarding 2 more doses of potassium chloride replacement. Patient in stable condition with 02 sat of 90% on [address] Simeon's order to encourage more fluids due to dehydration.
[2021-02-15] MEDS ORDERED: acetaZOLAMIDE SODIUM 500 MG/VIAL VIAL IV ONE (13:30)
--- NOTE | 2021-02-15 15:20 | NUR ---
Patient received order thoracentesis but Dr. Lucas hold procedure at this time due to INR is 3.84. Spoke with Fany regarding above and said will check tomorrow INR from blood test, DM made aware.
--- NOTE | 2021-02-15 15:22 | NUR ---
left message to and re; INR OF 3.84 waiting for returning call back
--- NOTE | 2021-02-15 15:22 | NUR ---
INR HIGH. PER DR MIRANDA THE PROCEDURE WONT BE DONE TODAY UNTILL THERE IS A NEW LABS. JOHANNA/ RON WAS INFORMED.
[2021-02-15 16:00] VITALS: BP 130/68
--- NOTE | 2021-02-15 16:08 | NUR ---
repeat protime with INR at this time as ordered consent obtained from conservator LEATHA JIMENEZ [phone] daugther in law stated that fully understanding
[2021-02-15] MEDS: ISOSORBIDE DINITRATE (5MG) 5 MG TABLET PO SCH (17:34)
--- NOTE | 2021-02-15 18:00 | NUR ---
THORACENTESIS CONSENT SIGNED.NEW REPEAT INR NORMAL.
--- NOTE | 2021-02-15 20:00 | NUR ---
MS RN NOTE PT IN BED AWAKE, SMILING. A/O X 2, NO SOB NO DISTRESS OR DISCOMFORT NOTED. DENIES PAIN. ON 4L N/C O2 SAT 95%.. LT HAND WITH SL #24G INTACT AND PATENT. BILATERAL SOFT WRIST RESTRAINTS ON. PT REMAIN TRYING TO REMOVE THE N/C AND SL WHEN REMOVE RESTRAINTS. ALSO DON'T FOLLOW SAFETY COMMANDS. KEPT HER DRY AND CLEAN. REPOSITION HER Q2H, SIDE RAILS UP X 3 AND CALL LIGHT WITHIN REACH. CONTINUE TO MONITOR HER.
[2021-02-15] MEDS: MIRTAZAPINE 15 MG TABLET PO SCH (21:48)
[2021-02-15] MEDS: ATORVASTATIN 40 MG TABLET PO SCH (21:48)
[2021-02-15] MEDS: LATANOPROST EYE DROP 0.005% 2.5 ML BOTTLE EACHEYE SCH (21:51)
[2021-02-16] MEDS: IPRATROPIUM NEB FS 0.5 MG/2.5 ML AMPUL.NEB NEB SCH ×4 (01:31→20:16)
[2021-02-16 04:00] VITALS: BP 161/80
[2021-02-16 06:43] LABS: BASOPHILS % (AUTO) 0.3 % (0.0-2.0); EOSINOPHILS % (AUTO) 1.8 % (0.0-6.0); HEMATOCRIT 32 % (33-45); LYMPHOCYTES # (AUTO) 0.6 /CMM (0.8-4.8); LYMPHOCYTES % (AUTO) 15.4 % (20.0-44.0); MEAN CORPUSCULAR HGB CONC 32 g/dl (31.0-36.0); MEAN CORPUSCULAR VOLUME 89 fL (82-100); MONOCYTES # (AUTO) 0.4 /CMM (0.1-1.30); MONOCYTES % (AUTO) 10.6 % (2.0-12.0); NEUTROPHILS # (AUTO) 2.6 /CMM (1.8-8.9); NEUTROPHILS % (AUTO) 71.9 % (43.0-81.0); PLATELET COUNT (AUTO) 106 /CMM (150-450); RED BLOOD CELL COUNT(AUTO) 3.54 MIL/uL (4.0-5.2); WHITE BLOOD COUNT (AUTO) 3.6 K/uL (4.3-11.0)
--- NOTE | 2021-02-16 06:50 | NUR ---
MS RN NOTE PT IN BED ASLEEP, EASILY AROUSABLE. NO DISTRESS OR DISCOMFORT NOTED. DENIES PAIN. SL #24G IN LT HAND INTACT AND PATENT. SIDE RAILS UP X 2 AND CALL LIGHT WITHIN REACH. WILL ENDORSE TO DAY SHIFT NURSE FOR CONTINUE TO CARE.
[2021-02-16 07:01] LABS: ALANINE AMINOTRANSFERASE 18 U/L (12-78); ALBUMIN 2.8 g/dL (3.4-5.0); ALKALINE PHOSPHATASE 62 U/L (46-116); ASPARTATE AMINOTRANSFERASE 26 U/L (15-37); BILIRUBIN,TOTAL 0.6 mg/dL (0.2-1.0); CALCIUM, SERUM 9.1 mg/dL (8.5-10.1); CHLORIDE 100 mmol/L (98-107); CREATININE 0.6 mg/dL (0.6-1.3); GLUCOSE 93 mg/dL (74-106); MAGNESIUM 1.9 mg/dL (1.8-2.4); PHOSPHORUS 3.2 mg/dL (2.5-4.9); POTASSIUM 3.2 mmol/L (3.5-5.1); SODIUM SERUM 148 mmol/L (136-145); TOTAL PROTEIN, SERUM 6.6 g/dL (6.4-8.2); UREA NITROGEN, BLOOD 23 mg/dL (7-18)
[2021-02-16 07:34] LABS: CARBON DIOXIDE 51 mmol/L (21-32)
[2021-02-16 08:00] VITALS: BP 151/76
--- NOTE | 2021-02-16 08:02 | NUR ---
MS RN OPENING NOTES RECEIVED PT IN BED AWAKE, A/O X 2-3. VERBALLY RESPONSIVE, DENIES PAIN OR ANY DISCOMFORTS AT THIS TIME. PT IS FORGETFUL. ON 2LPM OF 02 VIA N/C, TOLERATING WELL WITH SP02 NOTED @ 94% AT THIS TIME. IV SL ON LT HAND #24G INTACT AND PATENT. BILATERAL SOFT WRIST RESTRAINTS ON, GOOD CIRCULATION NOTED. PT REMAINS TRYING TO REMOVE N/C AND SL WHEN RESTRAINTS IS REMOVED. SAFETY MEASURES IN PLACE: BED IN LOWEST LOCKED POSITION WITH SIDE RAILS UP X 3 AND CALL LIGHT WITHIN REACH. WILL CONTINUE TO MONITOR PT.
[2021-02-16] MEDS: GLUCERNA SHAKE 237 ML CAN PO SCH ×2 (08:26→17:36)
[2021-02-16] MEDS: FUROSEMIDE 40 MG/4 ML VIAL IV SCH (08:36)
[2021-02-16] MEDS: VENLAFAXINE XR 37.5 MG CAP.SR.24H PO SCH (08:36)
[2021-02-16] MEDS: DOCUSATE SODIUM 100 MG CAPSULE PO SCH ×2 (08:37→16:30)
[2021-02-16] MEDS: BENAZEPRIL HCL 10 MG TABLET PO SCH (08:38)
[2021-02-16] MEDS: DIGOXIN 0.125 MG TABLET PO SCH (08:38)
[2021-02-16] MEDS: CARVEDILOL 12.5 MG TABLET PO SCH ×2 (08:38→16:31)
[2021-02-16] MEDS: PANTOPRAZOLE 40 MG TABLET.DR PO SCH (08:40)
[2021-02-16] MEDS: ISOSORBIDE DINITRATE (5MG) 5 MG TABLET PO SCH ×2 (08:41→16:31)
--- NOTE | 2021-02-16 11:04 | NUR ---
RN NOTES PATIENT S/P RIGHT THORACENTESIS WITH 1000 ML OUTPUT DONE BY [address] MIRANDA. NO ACTIVE BLEEDING NOTED AT PUNCTURE SITE. SPECIMEN TAKEN TO LAB FOR SAFEKEEPING AT THIS TIME. WILL CONTINUE TO MONITOR.
[2021-02-16] MEDS: POTASSIUM CHLORIDE 20 MEQ TAB.PRT.SR PO SCH ×2 (11:33→12:18)
--- NOTE | 2021-02-16 12:18 | NUR ---
RN NOTES PT NOTED WITH LOW POTASSIUM 3.2 TODAY. ADMINISTERED KDUR 20 MEQ X 2 DOSES ORDERED. WILL CONTINUE TO MONITOR.
[2021-02-16] MEDS ORDERED: acetaZOLAMIDE SODIUM 500 MG/VIAL VIAL IV ONE (14:00)
[2021-02-16 16:00] VITALS: BP 114/57
--- NOTE | 2021-02-16 18:41 | NUR ---
MS RN CLOSING NOTES PT IN BED AWAKE AND WATCHING TV AT THIS TIME. HOB ELEVATED. A/O X 3-4. ABLE TO MAKE NEEDS KNOWN. FORGETFUL. ON SUPPLEMENTAL 02 VIA N/C @ 2LPM, TOLERATING WELL WITH NO ACUTE RESPIRATORY DISTRESS NOTED DURING SHIFT. B/L SOFT WRIST RESTRAINTS RELEASED AT THIS TIME, PT CALM AND FOLLOWING INSTRUCTIONS. IV SL ON LT HAND #24G INTACT, PATENT AND FLUSHES WELL. ALL NEEDS AND CARE PROVIDED WELL. SAFETY MEASURES KEPT IN PLACE: BED IN LOWEST LOCKED POSITION WITH SIDE RAILS UP X 3 AND CALL LIGHT WITHIN REACH. WILL ENDORSE JAVIER TO STAFF SCIENTIST NURSE.
--- NOTE | 2021-02-16 19:18 | NUR ---
RN NOTE PT IN BED WITH HEAD OF BED ELEVATED. PT AWAKE/ALERT AND ORIENTED X 3. ON 2L OF O2 VIA NC. RESPIRATIONS UNLABORED, DENIES PAIN OR DISCOMFORT, PT CALM AND COOPERATIVE, 24G IV ON LEFT HAND INTACT AND PATENT. PLAN OF CARE DISCUSSED, SAFETY MEASURES IN PLACE PER PROTOCOL, BED ALARM ON, BED LOCKED AND IN LOW POSITION, SIDE RAILS UP X 2, CALL LIGHT WITHIN REACH, WILL MONITOR.
[2021-02-16 20:00] VITALS: BP 103/60
[2021-02-16] MEDS: MIRTAZAPINE 15 MG TABLET PO SCH (21:25)
[2021-02-16] MEDS: ATORVASTATIN 40 MG TABLET PO SCH (21:25)
[2021-02-16] MEDS: LATANOPROST EYE DROP 0.005% 2.5 ML BOTTLE EACHEYE SCH (21:26)
--- NOTE | 2021-02-17 | NUR ---
RN NOTE COMPLETE BED BATH GIVEN. PT TOLERATED WELL. NO FURTHER NEEDS AT THIS TIME.
[2021-02-17] MEDS: IPRATROPIUM NEB FS 0.5 MG/2.5 ML AMPUL.NEB NEB SCH ×4 (01:40→19:30)
[2021-02-17 04:00] VITALS: BP 110/67
[2021-02-17 05:52] LABS: BASOPHILS % (AUTO) 0.2 % (0.0-2.0); EOSINOPHILS % (AUTO) 0.6 % (0.0-6.0); HEMATOCRIT 30 % (33-45); HEMOGLOBIN 9.5 g/dL (11.5-14.8); LYMPHOCYTES # (AUTO) 0.7 /CMM (0.8-4.8); LYMPHOCYTES % (AUTO) 15.3 % (20.0-44.0); MEAN CORPUSCULAR HGB CONC 31 g/dl (31.0-36.0); MEAN CORPUSCULAR VOLUME 89 fL (82-100); MONOCYTES # (AUTO) 0.4 /CMM (0.1-1.30); MONOCYTES % (AUTO) 9.7 % (2.0-12.0); NEUTROPHILS # (AUTO) 3.4 /CMM (1.8-8.9); NEUTROPHILS % (AUTO) 74.2 % (43.0-81.0); PLATELET COUNT (AUTO) 117 /CMM (150-450); RED BLOOD CELL COUNT(AUTO) 3.38 MIL/uL (4.0-5.2); WHITE BLOOD COUNT (AUTO) 4.5 K/uL (4.3-11.0)
[2021-02-17 06:32] LABS: CALCIUM, SERUM 9.4 mg/dL (8.5-10.1); CHLORIDE 101 mmol/L (98-107); CREATININE 0.7 mg/dL (0.6-1.3); GLUCOSE 98 mg/dL (74-106); MAGNESIUM 1.9 mg/dL (1.8-2.4); PHOSPHORUS 3.9 mg/dL (2.5-4.9); POTASSIUM 2.9 mmol/L (3.5-5.1); SODIUM SERUM 144 mmol/L (136-145); UREA NITROGEN, BLOOD 26 mg/dL (7-18)
--- NOTE | 2021-02-17 06:48 | NUR ---
RN NOTE NO ACUTE CHANGES OBSERVED OVERNIGHT. PT SLEEPING IN BED COMFORTABLY BUT EASILY AROUSABLE TO STIMULI. ON 2L OF O2 VIA NC. RESPIRATIONS UNLABORED, NO SIGNS OF PAIN OR DISCOMFORT, PT CALM AND COOPERATIVE, 24G IV ON LEFT HAND INTACT AND PATENT. PT IS S/P RIGHT THORACENTESIS. SITE WITHOUT SIGNS OF COMPLICATIONS. SAFETY MEASURES IN PLACE PER PROTOCOL, BED ALARM ON, BED LOCKED AND IN LOW POSITION, SIDE RAILS UP X 2, CALL LIGHT WITHIN REACH, WILL ENDORSE TO MORNING RN FOR JAVIER.
--- NOTE | 2021-02-17 07:59 | NUR ---
RN OPENING NOTE PATIENT IS RESTING IN BED ASLEEP. AROUSES TO LIGHT TOUCH. A/O X3 AND BELIZEAN SPEAKING. NO COMPLAINTS OF PAIN OR NAUSEA. ON 2L NC WITH NO SOB OR RESPIRATORY DISTRESS PRESENT. ON BEDREST WITH COMMODE AT BEDSIDE. SACRAL REDNESS PRESENT. NO EDEMA PRESENT. HL PRESENT ON L HAND 24G. SAFETY MEASURES IN PLACE. SIDE RAILS RAISED. BED LOWERED. CALL LIGHT WITHIN REACH. WILL CONTINUE TO MONITOR.
[2021-02-17 08:00] VITALS: BP 149/73
[2021-02-17 08:10] LABS: CARBON DIOXIDE 46 mmol/L (21-32)
[2021-02-17] MEDS: PANTOPRAZOLE 40 MG TABLET.DR PO SCH (08:44)
[2021-02-17] MEDS: DOCUSATE SODIUM 100 MG CAPSULE PO SCH ×2 (08:44→17:19)
[2021-02-17] MEDS: FUROSEMIDE 40 MG/4 ML VIAL IV SCH (08:44)
[2021-02-17] MEDS: VENLAFAXINE XR 37.5 MG CAP.SR.24H PO SCH (08:44)
[2021-02-17] MEDS: BENAZEPRIL HCL 10 MG TABLET PO SCH (08:45)
[2021-02-17] MEDS: ISOSORBIDE DINITRATE (5MG) 5 MG TABLET PO SCH ×2 (08:46→16:58)
[2021-02-17] MEDS: CARVEDILOL 12.5 MG TABLET PO SCH ×2 (08:46→16:57)
[2021-02-17] MEDS: GLUCERNA SHAKE 237 ML CAN PO SCH ×2 (08:48→17:19)
[2021-02-17] MEDS: POTASSIUM CHLORIDE 20 MEQ TAB.PRT.SR PO SCH ×3 (10:33→12:54)
[2021-02-17] MEDS: POLYETHYLENE GLYCOL 3350 17 GM POWD.PACK PO PRN (10:33)
[2021-02-17] MEDS ORDERED: acetaZOLAMIDE SODIUM 500 MG/VIAL VIAL IV ONE (13:00)
[2021-02-17] MEDS ORDERED: POTASSIUM CHLORIDE 20 MEQ TAB.PRT.SR PO ONE (13:00)
--- NOTE | 2021-02-17 13:58 | NUR ---
PT REFUSED RESP TX ATT. NO S/S OF SOB NOTED. WILL CONT TO MONITOR Addendum: 02/17/21 at 1359 by SIS ALFARO RT Amended: Links added.
[2021-02-17 16:00] VITALS: BP 90/57
--- NOTE | 2021-02-17 19:23 | NUR ---
RN CLOSING NOTE PATIENT IS RESTING IN BED ASLEEP. AROUSES TO LIGHT TOUCH. A/O X3 AND NIUEAN SPEAKING. NO COMPLAINTS OF PAIN OR NAUSEA. ON 2L NC WITH NO SOB OR RESPIRATORY DISTRESS PRESENT. ON BEDREST WITH COMMODE AT BEDSIDE. SACRAL REDNESS PRESENT. NO EDEMA PRESENT. HL PRESENT ON L HAND 24G. SAFETY MEASURES IN PLACE. SIDE RAILS RAISED. BED LOWERED. CALL LIGHT WITHIN REACH. REPORT GIVEN TO NIGHT NURSE FOR JAVIER
--- NOTE | 2021-02-17 20:11 | NUR ---
RT NOTE PT REFUSED TX. NO SOB NOTED. SPO2 96% ON CURRENT LPM. RN NOTIFIED. WILL CONTINUE TO MONITOR T/O SHIFT.
[2021-02-17] MEDS: MIRTAZAPINE 15 MG TABLET PO SCH (21:33)
[2021-02-17] MEDS: ATORVASTATIN 40 MG TABLET PO SCH (21:33)
[2021-02-17] MEDS: LATANOPROST EYE DROP 0.005% 2.5 ML BOTTLE EACHEYE SCH (22:00)
[2021-02-18] MEDS: IPRATROPIUM NEB FS 0.5 MG/2.5 ML AMPUL.NEB NEB SCH ×3 (01:24→13:18)
[2021-02-18 04:00] VITALS: BP 122/59
[2021-02-18 06:19] LABS: BASOPHILS % (AUTO) 0.3 % (0.0-2.0); EOSINOPHILS % (AUTO) 0.1 % (0.0-6.0); HEMATOCRIT 29 % (33-45); HEMOGLOBIN 9.3 g/dL (11.5-14.8); LYMPHOCYTES # (AUTO) 0.7 /CMM (0.8-4.8); LYMPHOCYTES % (AUTO) 14.9 % (20.0-44.0); MEAN CORPUSCULAR HGB CONC 32 g/dl (31.0-36.0); MEAN CORPUSCULAR VOLUME 89 fL (82-100); MONOCYTES # (AUTO) 0.5 /CMM (0.1-1.30); MONOCYTES % (AUTO) 9.4 % (2.0-12.0); NEUTROPHILS # (AUTO) 3.7 /CMM (1.8-8.9); NEUTROPHILS % (AUTO) 75.3 % (43.0-81.0); PLATELET COUNT (AUTO) 115 /CMM (150-450); RED BLOOD CELL COUNT(AUTO) 3.31 MIL/uL (4.0-5.2); WHITE BLOOD COUNT (AUTO) 4.9 K/uL (4.3-11.0)
--- NOTE | 2021-02-18 06:21 | NUR ---
RN notes Alert and oriented with episodes of confusion. Can carry ordinary conversation. No complaint of pain or discomfort. Vital signs wnl. Refused nocturnal BIPAP. On 2liters O2 via nasal cannula, tolerating well with )2sat of 100%. Reinserted PIV on left hand. Good back flow noted. Procedure well tolerated. Kept clean and dry. Will endorse to next shift for continuity of care.
[2021-02-18 07:06] LABS: ALBUMIN 2.5 g/dL (3.4-5.0); BILIRUBIN,TOTAL 0.4 mg/dL (0.2-1.0); CALCIUM, SERUM 9.3 mg/dL (8.5-10.1); CREATININE 0.7 mg/dL (0.6-1.3); PHOSPHORUS 3.9 mg/dL (2.5-4.9)
--- NOTE | 2021-02-18 07:25 | NUR ---
RN OPENING NOTE PATIENT RECEIVED IN BED SLEEPING IN SEMI-FOWLERS POSITION. PATIENT ON O2 THERAPY VIA NC AT 2 LPM TOLERATING WELL WITH NO COMPLAINTS OF SOB. LEFT HAND #22 IV ACCESS INTACT AND PATENT. SAFETY PRECAUTIONS IMPLEMENTED, BED LOCKED IN LOWEST POSITION, SIDE RAILS UP X2, CALL LIGHT WITHIN REACH. WILL CONTINUE TO MONITOR AND PROVIDE CARE THROUGHOUT SHIFT.
[2021-02-18 08:00] VITALS: BP 109/63
[2021-02-18 08:07] LABS: ABG OXYGEN SATURATION 96.4 % (92.0-98.5); ABG PH 7.352 (7.350-7.450); ABG PO2 98.4 mmHg (75.0-100.0); AaDO2 6.8 mmHg; COHb 0.8 % (0.5-1.5); MetHb 0.4 % (0.0-1.5); O2Hb 95.2 % (94.0-97.0); SITE, ABG Right Radial; VENT MODE, BG NC 28%
[2021-02-18] MEDS: FUROSEMIDE 40 MG/4 ML VIAL IV SCH (08:33)
[2021-02-18] MEDS: DOCUSATE SODIUM 100 MG CAPSULE PO SCH ×2 (08:39→17:00)
[2021-02-18] MEDS: DIGOXIN 0.125 MG TABLET PO SCH (08:44)
[2021-02-18] MEDS: PANTOPRAZOLE 40 MG TABLET.DR PO SCH (08:44)
[2021-02-18] MEDS: VENLAFAXINE XR 37.5 MG CAP.SR.24H PO SCH (08:56)
[2021-02-18] MEDS: ISOSORBIDE DINITRATE (5MG) 5 MG TABLET PO SCH (08:56)
[2021-02-18] MEDS: BENAZEPRIL HCL 10 MG TABLET PO SCH (08:56)
[2021-02-18 08:57] VITALS: BP 109/63
[2021-02-18] MEDS: CARVEDILOL 12.5 MG TABLET PO SCH (08:57)
[2021-02-18] MEDS: GLUCERNA SHAKE 237 ML CAN PO SCH (08:57)
[2021-02-18] MEDS ORDERED: POTASSIUM CHLORIDE 20 MEQ TAB.PRT.SR PO SCH (09:30)
[2021-02-18] MEDS ORDERED: CARV12.52 PO (11:59)
[2021-02-18] MEDS ORDERED: FURO-144 PO (11:59)
[2021-02-18] MEDS: POTASSIUM CHLORIDE 20 MEQ TAB.PRT.SR PO SCH ×3 (12:58→15:00)
[2021-02-18] MEDS: POLYETHYLENE GLYCOL 3350 17 GM POWD.PACK PO PRN (17:00)
--- NOTE | 2021-02-18 17:25 | NUR ---
patient discharged to [facility] in stable condition. paperwork and discharge instruction provided for client. report called and given to sheila. patient refused skin assessment prior to discharge. care transferred over to ambulance for transportation.
== END 2021-02-18 17:22 | DRG 291 ==
LOC: ER 08:40 → TELE1 10:34 → MEDSG1 02-13 08:59
PROVIDERS: ATTEND Student in an Organized Health Care Education/Training Program
PROC: 0W993ZZ Drainage of Right Pleural Cavity, Percutaneous Approach (ICD-10-PCS; principal; 2021-02-16)
DX: I11.0 Hypertensive heart disease with heart failure (principal); J96.21 Acute and chronic respiratory failure with hypoxia; J96.22 Acute and chronic respiratory failure with hypercapnia; I48.20 Chronic atrial fibrillation, unspecified; D61.818 Other pancytopenia; E87.4 Mixed disorder of acid-base balance; J84.9 Interstitial pulmonary disease, unspecified; D68.9 Coagulation defect, unspecified; I50.33 Acute on chronic diastolic (congestive) heart failure; I27.20 Pulmonary hypertension, unspecified; Z20.822 Contact with and (suspected) exposure to COVID-19; Z86.73 Personal history of transient ischemic attack (TIA), and cerebral infarction without residual deficits; Z66 Do not resuscitate; Z88.8 Allergy status to other drugs, medicaments and biological substances; Z79.01 Long term (current) use of anticoagulants; Z79.899 Other long term (current) drug therapy; I34.0 Nonrheumatic mitral (valve) insufficiency; F32.9 Major depressive disorder, single episode, unspecified; I25.10 Atherosclerotic heart disease of native coronary artery without angina pectoris; I70.0 Atherosclerosis of aorta; N32.81 Overactive bladder; Z96.642 Presence of left artificial hip joint; Y92.9 Unspecified place or not applicable; T45.515A Adverse effect of anticoagulants, initial encounter
CPT/HCPCS: 36415; 36600; 71045-TC; 71250-TC; 80048-TC; 80053-TC; 80061-TC; 80076-TC; 80162-TC; 82803-TC; 83605-TC; 83735-TC; 83880; 84100-TC; 84443-TC; 84484-TC; 85025-TC; 85610-TC; 85730-TC; 87040-TC; 87081-TC; 88108-TC; 88305-TC; 93307-TC; 94660; 94760-TC; 94762-TC; 94799-TC; 97116-TC; 97530-TC; C9803; G0378; J1120; J1940; J3475; J7050

== ENCOUNTER 2021-04-06 18:38 | Inpatient (IN) | payer MEDICARE, BC ==
[~2021-04-06] VITALS: Ht 172.7 cm; Wt 78.0 kg
[~2021-04-06 18:38] MED LIST changes: -BIOSIL PO; +CALC250T2 PO; +CARV12.52 PO; -CHOL200026 PO; +CRAN250T2 PO; +DOCU-141 PO; +FURO-144 PO; -LAMO25TA5 PO; -MULT-1160 PO; +NUT.237L28 PO; +WARF-58 PO
--- NOTE | 2021-04-06 19:28 | NUR ---
KIMI FROM SNF TO ER BED 12. AAOX3. NOT IN RESP DISTRESS. BROUGHT IN FOR INCREASING AGITATION AND CONFUSION. PER EMT REPORT, PT WAS AGITATED AND INCREASINGLY GETTING CONFUSED. SHE WAS AGITATED IN SUCH A WAY THAT SHE THREW A PITCH ACROSS THE MARRUFO THE THE SNF. PT IS CALM UPON PRESENTATION. WAS AT THE BEDSIDE FOR EVAL. ORDERS RECEIVED, NOTED AND CARRIED OUT
[2021-04-06 20:04] LABS: BASOPHILS % (AUTO) 0.4 % (0.0-2.0); EOSINOPHILS % (AUTO) 0.6 % (0.0-6.0); HEMATOCRIT 30 % (33-45); HEMOGLOBIN 9.2 g/dL (11.5-14.8); LYMPHOCYTES # (AUTO) 0.8 /CMM (0.8-4.8); LYMPHOCYTES % (AUTO) 19.9 % (20.0-44.0); MEAN CORPUSCULAR HGB CONC 31 g/dl (31.0-36.0); MEAN CORPUSCULAR VOLUME 89 fL (82-100); MONOCYTES # (AUTO) 0.3 /CMM (0.1-1.30); MONOCYTES % (AUTO) 8.2 % (2.0-12.0); NEUTROPHILS # (AUTO) 2.7 /CMM (1.8-8.9); NEUTROPHILS % (AUTO) 70.9 % (43.0-81.0); PLATELET COUNT (AUTO) 77 /CMM (150-450); RED BLOOD CELL COUNT(AUTO) 3.32 MIL/uL (4.0-5.2); WHITE BLOOD COUNT (AUTO) 3.9 K/uL (4.3-11.0)
[2021-04-06 20:10] LABS: BILIRUBIN,URINE SMALL (NEGATIVE); COLOR,URINE YELLOW (YELLOW); LEUKOCYTE ESTERASE ,URINE Negative (NEGATIVE); NITRITE, URINE Negative (NEGATIVE); PH,URINE 5.5 (5.0-8.0); PROTEIN,URINE 100 mg/dl (NEGATIVE); UGLUCOSE Negative (NEGATIVE); UROBILINOGEN,URINE 0.2 EU/dL (0.2)
--- NOTE | 2021-04-06 20:10 | NUR ---
CALL FROM LAB. RAPID COVID NEGATIVE.
[2021-04-06 20:25] LABS: BACTERIA,URINE None seen /HPF (None Seen); SQUAMOUS EPITHELIAL CELL,UR Rare /HPF (None Seen)
[2021-04-06 20:30] LABS: ACETAMINOPHEN < 0 ug/ml (10-30); ALANINE AMINOTRANSFERASE 24 U/L (12-78); ALBUMIN 3.5 g/dL (3.4-5.0); ALCOHOL, BLOOD < 0 mg/dL (0-0); ALKALINE PHOSPHATASE 92 U/L (46-116); ASPARTATE AMINOTRANSFERASE 30 U/L (15-37); BILIRUBIN,DIRECT 0.2 mg/dL (0.0-0.2); BILIRUBIN,TOTAL 0.5 mg/dL (0.2-1.0); CALCIUM, SERUM 9.4 mg/dL (8.5-10.1); CHLORIDE 101 mmol/L (98-107); CREATININE 0.9 mg/dL (0.6-1.3); GLUCOSE 125 mg/dL (74-106); POTASSIUM 3.8 mmol/L (3.5-5.1); SODIUM SERUM 144 mmol/L (136-145); TOTAL PROTEIN, SERUM 7.2 g/dL (6.4-8.2); UREA NITROGEN, BLOOD 24 mg/dL (7-18)
[2021-04-06 20:31] LABS: CARBON DIOXIDE 43 mmol/L (21-32)
[2021-04-06 20:42] LABS: LYMPHOCYTES % (MANUAL) 20 % (16-48); MONOCYTES % (MANUAL) 10 % (0-11.0); NEUTROPHILS % (MANUAL) 70 (42-76)
[2021-04-06] MEDS ORDERED: MAGNESIUM HYDROXIDE 30 ML UDC PO PRN (21:00)
[2021-04-06] MEDS ORDERED: ONDANSETRON HCL/PF 4 MG/2 ML VIAL IVP PRN (21:00)
[2021-04-06] MEDS ORDERED: MORPHINE SULFATE INJ 2 MG/ML DISP.SYRIN IV PRN (21:00)
[2021-04-06] MEDS ORDERED: MAG HYDROX/AL HYDROX/SIMETH 30 ML UDC PO PRN (21:00)
[2021-04-06] MEDS ORDERED: HYDROCODONE/APAP 5/325MG TABLET PO PRN (21:00)
[2021-04-06] MEDS ORDERED: ACETAMINOPHEN 325 MG TABLET PO PRN (21:00)
[2021-04-06] MEDS ORDERED: FUROSEMIDE 20 MG/2 ML VIAL IV ONE (21:00)
--- NOTE | 2021-04-06 21:02 | NUR ---
TELE BED 103
[2021-04-06] MEDS ORDERED: FUROSEMIDE 20 MG/2 ML VIAL ONE (21:05)
[2021-04-06] MEDS ORDERED: PSYLLIUM SEED 1 PKT PACKET PO PRN (21:30)
[2021-04-06] MEDS ORDERED: HOME MED MISCELLANEOUS XX SCH (21:30)
[2021-04-06] MEDS ORDERED: TRAMADOL HCL 50 MG TABLET PO PRN (21:30)
[2021-04-06] MEDS ORDERED: POLYETHYLENE GLYCOL 3350 17 GM POWD.PACK PO PRN (21:30)
--- NOTE | 2021-04-06 21:41 | NUR ---
report given to jorge a stuart for choco
[2021-04-06] MEDS ORDERED: MIRTAZAPINE SOLUTAB 15 MG/UDTABLET TAB.RAPDIS PO SCH (22:00)
--- NOTE | 2021-04-06 22:15 | NUR ---
CERTIFICATION OFFICER NOTES. ADMITTED A 86 Y/O FEMALE A/OX3 AMBULATORY WITH ASSIST . ABLE TO MAKE NEEDS KNOWN WITH DX OF NSTEMI ,PTS ON TELE MONITOR RHYTHM IS AFIB WITH PVC AND BIGEMINY PTS ON 2 LITERS OF 02 SATING 95 , ADMISSION ORDERS NOTED CARRIED OUT .V/S STABLE ALLERGY TO APIXABAN , DNR WITH POLST IN THE CHART , ALL NEEDS ATTENDED TOO CALL LIGHT WITHIN REACH ,BODY CHECK DONE NOTED WITH SACRAL REDNESS AND BILATERAL LEG EDEMA .WILL CONTINUE TO MONITOR PTS.
--- NOTE | 2021-04-06 22:18 | NUR ---
PT TRANSPORTED TO UNIT ON GURNEY WITH EMT AND RN AT BEDSIDE W/ ACLS PROTOCOL. NAD NOTED DURING TRANSPORT
[2021-04-06 22:51] VITALS: BP 145/76
[2021-04-06] MEDS ORDERED: MIRTAZAPINE SOLUTAB 15 MG/UDTABLET TAB.RAPDIS ONE (23:52)
[2021-04-07] VITALS: BP 112/63
--- NOTE | 2021-04-07 00:45 | NUR ---
RECORDS MANAGEMENT CLERK NOTES PTS NOTED WITH RHYTHM OF AFIB WITH LOTS OF PVC AND BIGEMINY, PTS ON 2 LITERS OF O2 NO C/O OF PAIN NO DISTRESS NO SOB ,MELLO FORRESTER MADE AWARE OKAY TO DO LABS IN AM ([facility] AND [facility] )WILL CONTINUE TO MONITOR , PTS ALSO IS DNR POLST IN THE CHART , MELLO AWARE OKAY TO ORDER.
[2021-04-07 04:00] VITALS: BP_SYST 132; BP_SYST 141; BP_DIAS 61; BP_DIAS 67
[2021-04-07 04:53] LABS: BASOPHILS % (AUTO) 0.5 % (0.0-2.0); HEMATOCRIT 27 % (33-45); HEMOGLOBIN 8.3 g/dL (11.5-14.8); LYMPHOCYTES # (AUTO) 0.5 /CMM (0.8-4.8); LYMPHOCYTES % (AUTO) 16.4 % (20.0-44.0); MEAN CORPUSCULAR HGB CONC 31 g/dl (31.0-36.0); MEAN CORPUSCULAR VOLUME 89 fL (82-100); MONOCYTES # (AUTO) 0.4 /CMM (0.1-1.30); MONOCYTES % (AUTO) 13.8 % (2.0-12.0); NEUTROPHILS # (AUTO) 2.1 /CMM (1.8-8.9); NEUTROPHILS % (AUTO) 66.3 % (43.0-81.0); PLATELET COUNT (AUTO) 69 /CMM (150-450); RED BLOOD CELL COUNT(AUTO) 2.98 MIL/uL (4.0-5.2); WHITE BLOOD COUNT (AUTO) 3.2 K/uL (4.3-11.0)
[2021-04-07 05:18] LABS: CALCIUM, SERUM 8.8 mg/dL (8.5-10.1); CREATININE 0.9 mg/dL (0.6-1.3); MAGNESIUM 1.7 mg/dL (1.8-2.4); PHOSPHORUS 2.9 mg/dL (2.5-4.9); POTASSIUM 3.3 mmol/L (3.5-5.1)
[2021-04-07 05:43] LABS: DIGOXIN 0.31 ng/mL (0.90-2.00); EOSINOPHILS % (MANUAL) 3 % (0-4); LYMPHOCYTES % (MANUAL) 17 % (16-48); MONOCYTES % (MANUAL) 6 % (0-11.0); NEUTROPHILS % (MANUAL) 74 (42-76)
--- NOTE | 2021-04-07 06:17 | NUR ---
telegraph office route aide notes Resident in bed comfortable remains on r/a sating 96% no sob no distress noted on tele sr on the monitor, will endorse to rn day shift for continuity of care. Addendum: 04/07/21 at 0628 by TAYLOR PARIKH RN tele closing notes(pls disregard the above notes not for this pts.) Pts on 2liters o2 not r/a. no sob no distress noted continue on afib with pvc and bigeminy no c/o of pain all needs attended too call light within reach will endorse to rn day shift for continuity of care.
--- NOTE | 2021-04-07 06:34 | NUR ---
director telehealth notes carbon dioxide of 44 relayed to business intelligence manager jacky he said pts needs nocturnal bipap and that Dr Andrea will see the pts today.
[2021-04-07] MEDS ORDERED: POTASSIUM CHLORIDE 10 MEQ TABLET.SA PO SCH (07:00)
--- NOTE | 2021-04-07 07:37 | NUR ---
IT INFRASTRUCTURE CONSULTANT OPENING NOTES RECEIVED PATIENT IN BED, ASLEEP. PATIENT ON OXYGEN THERAPY AT 2 LPM VIA NASAL CANNULA; BREATHING EVEN AND UNLABORED; NO SOB NOTED. TELE MONITOR WITH A CURRENT READING OF A-FIB WITH PVC AND BIGEMINY AT 76. NO S/S OF PAIN SUCH FACIAL GRIMACING, MOANING OR GUARDING. SAFETY PRECAUTIONS IN PLACE; BED IN LOW POSITION AND LOCKED, RAILS UP X2, CALL LIGHT WITHIN REACH. WILL CONTINUE TO MONITOR PATIENT.
[2021-04-07] MEDS ORDERED: Magnesium 1GM/D5W 100ML PREMIX 100 ML IV SCH (08:30)
[2021-04-07] MEDS: PANTOPRAZOLE 40 MG TABLET.DR PO SCH (08:33)
[2021-04-07] MEDS: DOCUSATE SODIUM 100 MG CAPSULE PO SCH ×2 (08:34→16:31)
[2021-04-07] MEDS: CARVEDILOL 12.5 MG TABLET PO SCH ×2 (08:34→16:32)
[2021-04-07] MEDS: ISOSORBIDE DINITRATE (10MG) 10 MG TABLET PO SCH ×2 (08:35→16:32)
[2021-04-07] MEDS: BENAZEPRIL HCL 10 MG TABLET PO SCH (08:36)
[2021-04-07] MEDS: VENLAFAXINE 37.5 MG TABLET PO SCH (08:53)
[2021-04-07] MEDS ORDERED: FUROSEMIDE 40 MG/4 ML VIAL IV SCH (09:00)
[2021-04-07] MEDS ORDERED: POTASSIUM CHLORIDE 20 MEQ TAB.PRT.SR PO SCH (09:00)
[2021-04-07] MEDS: CALCIUM CITRATE(CITRACAL) /VITAMIN D 1 TAB TABLET PO SCH (09:00)
[2021-04-07] MEDS ORDERED: GLUCERNA SHAKE 237 ML CAN PO SCH (09:00)
[2021-04-07 09:26] LABS: ABG BASE EXCESS 14.7 mmol/L; ABG OXYGEN SATURATION 97.9 % (92.0-98.5); ABG PCO2 73.4 mmHg (35.0-45.0); ABG PH 7.378 (7.350-7.450); ABG PO2 110.7 mmHg (75.0-100.0); AaDO2 2.3 mmHg; COHb 0.6 % (0.5-1.5); MetHb 0.2 % (0.0-1.5); O2Hb 97.1 % (94.0-97.0); SITE, ABG Right Radial; VENT MODE, BG 2 LPM NC
[2021-04-07 10:13] VITALS: BP 102/57
[2021-04-07] MEDS: ENSURE ENLIVE 237 ML LIQUID (VANILLA) PO SCH (12:11)
[2021-04-07] MEDS: IPRATROPIUM NEB FS 0.5 MG/2.5 ML AMPUL.NEB NEB SCH ×4 (12:44→23:30)
[2021-04-07 13:37] VITALS: BP 101/63
[2021-04-07] MEDS: WARFARIN SODIUM 2.5 MG TABLET PO SCH (16:36)
[2021-04-07] MEDS ORDERED: WARFARIN SODIUM 1 MG TABLET PO SCH (17:00)
[2021-04-07] MEDS ORDERED: WARFARIN SODIUM 5 MG TABLET PO SCH (17:00)
[2021-04-07 17:13] VITALS: BP 107/61
--- NOTE | 2021-04-07 18:38 | NUR ---
PATIENT CARE COORDINATOR CLOSING NOTES PATIENT REMAINS IN BED, AWAKE, A/O X3. PATIENT ON OXYGEN THERAPY AT 1 LPM VIA NASAL CANNULA; BREATHING EVEN AND UNLABORED; NO SOB NOTED. NO COMPLAINS OF PAIN DURING THE DAY. VERONICA IV ACCESS G # 20 PRESENT AND INTACT. SAFETY PRECAUTIONS IN PLACE; BED IN LOW POSITION AND LOCKED, RAILS UP X2, CALL LIGHT WITHIN REACH. WILL ENDORSE TO FINE GRADE OPERATOR NURSE.
[2021-04-07 20:00] VITALS: BP 113/56
[2021-04-07] MEDS: LATANOPROST EYE DROP 0.005% 2.5 ML BOTTLE EACHEYE SCH (21:28)
[2021-04-07] MEDS: ATORVASTATIN 40 MG TABLET PO SCH (21:30)
[2021-04-07] MEDS: MIRTAZAPINE 15 MG TABLET PO SCH (21:30)
[2021-04-08] MEDS: IPRATROPIUM NEB FS 0.5 MG/2.5 ML AMPUL.NEB NEB SCH ×6 (03:25→23:28)
[2021-04-08 04:00] VITALS: BP 112/56
--- NOTE | 2021-04-08 05:49 | NUR ---
RN notes Resting comfortably in bed, alert and awake, verbally able to communicate needs. Ambulatory. On 1 lpmO2 via nasal cannula well tolerated. Obeys commands. No distress noted. Breathing even and unlabored. No complaint of pain or discomfort. No significant change of condition. Kept clean and dry. Will endorse to next shift for continuity of care.
[2021-04-08 05:59] LABS: BASOPHILS % (AUTO) 0.5 % (0.0-2.0); EOSINOPHILS % (AUTO) 2.2 % (0.0-6.0); HEMATOCRIT 26 % (33-45); HEMOGLOBIN 8.2 g/dL (11.5-14.8); LYMPHOCYTES # (AUTO) 0.5 /CMM (0.8-4.8); LYMPHOCYTES % (AUTO) 20.4 % (20.0-44.0); MEAN CORPUSCULAR HGB CONC 31 g/dl (31.0-36.0); MEAN CORPUSCULAR VOLUME 89 fL (82-100); MONOCYTES # (AUTO) 0.3 /CMM (0.1-1.30); MONOCYTES % (AUTO) 11.9 % (2.0-12.0); NEUTROPHILS # (AUTO) 1.7 /CMM (1.8-8.9); PLATELET COUNT (AUTO) 69 /CMM (150-450); RED BLOOD CELL COUNT(AUTO) 2.94 MIL/uL (4.0-5.2); WHITE BLOOD COUNT (AUTO) 2.5 K/uL (4.3-11.0)
[2021-04-08 06:21] LABS: ALANINE AMINOTRANSFERASE 21 U/L (12-78); ALBUMIN 2.8 g/dL (3.4-5.0); ALKALINE PHOSPHATASE 81 U/L (46-116); ASPARTATE AMINOTRANSFERASE 25 U/L (15-37); BILIRUBIN,TOTAL 0.4 mg/dL (0.2-1.0); CHLORIDE 103 mmol/L (98-107); CREATININE 0.8 mg/dL (0.6-1.3); GLUCOSE 91 mg/dL (74-106); PHOSPHORUS 3.2 mg/dL (2.5-4.9); POTASSIUM 3.8 mmol/L (3.5-5.1); SODIUM SERUM 146 mmol/L (136-145); TOTAL PROTEIN, SERUM 5.9 g/dL (6.4-8.2); UREA NITROGEN, BLOOD 25 mg/dL (7-18)
[2021-04-08 06:49] LABS: CARBON DIOXIDE 47 mmol/L (21-32)
--- NOTE | 2021-04-08 07:50 | NUR ---
RN NOTE PATIENT IS CURRENTLY IN BED WITH HOB AT SEMI FOWLERS POSITION. PATIENT IS ON 1L NC. PATIENT IS AOX2. VERONICA IV IS PATENT AND INTACT. BED IS LOCKED IN THE LOWEST POSITION, 3 GUARD RAILS RAISED, CALL [place] WITHIN REACH, AND ALL HOSPITAL SAFETY PRECAUTIONS ARE BEING FOLLOWED. WILL CONTINUE TO MONITOR THROUGHOUT SHIFT.
[2021-04-08] MEDS: FUROSEMIDE 100 MG/10 ML VIAL IV SCH ×4 (08:30→16:30)
[2021-04-08] MEDS: POTASSIUM CHLORIDE 20 MEQ TAB.PRT.SR PO SCH ×3 (08:55→11:34)
[2021-04-08] MEDS: CALCIUM CITRATE(CITRACAL) /VITAMIN D 1 TAB TABLET PO SCH (08:55)
[2021-04-08] MEDS: BENAZEPRIL HCL 10 MG TABLET PO SCH (08:56)
[2021-04-08] MEDS: DOCUSATE SODIUM 100 MG CAPSULE PO SCH ×2 (08:56→16:26)
[2021-04-08] MEDS: VENLAFAXINE 37.5 MG TABLET PO SCH (08:56)
[2021-04-08] MEDS: ISOSORBIDE DINITRATE (10MG) 10 MG TABLET PO SCH ×2 (08:56→16:27)
[2021-04-08] MEDS: CARVEDILOL 12.5 MG TABLET PO SCH ×2 (08:57→16:26)
[2021-04-08] MEDS: PANTOPRAZOLE 40 MG TABLET.DR PO SCH (08:59)
[2021-04-08] MEDS: ENSURE ENLIVE 237 ML LIQUID (VANILLA) PO SCH (09:44)
[2021-04-08] MEDS ORDERED: DIGOXIN 0.125 MG TABLET PO SCH (13:00)
[2021-04-08 16:00] VITALS: BP 117/62
[2021-04-08] MEDS: WARFARIN SODIUM 2.5 MG TABLET PO SCH ×2 (16:32→17:00)
--- NOTE | 2021-04-08 17:00 | NUR ---
RN NOTE WARFARIN HELD DUE TO LOW PLATELETS. DR. AHUJA MADE AWARE.
--- NOTE | 2021-04-08 18:41 | NUR ---
RN NOTE PATIENT IS CURRENTLY IN BED WITH HOB AT SEMI FOWLERS POSITION. PATIENT IS ON 1L NC. PATIENT IS AOX2. VERONICA IV IS PATENT AND INTACT. BED IS LOCKED IN THE LOWEST POSITION, 3 GUARD RAILS RAISED, CALL [place] WITHIN REACH, AND ALL HOSPITAL SAFETY PRECAUTIONS ARE BEING FOLLOWED. PATIENT REMAINED STABLE THROUGHOUT SHIFT. WILL ENDORSE TO MORTGAGE ORIGINATOR RN.
[2021-04-08 20:00] VITALS: BP 114/75
[2021-04-08] MEDS: ATORVASTATIN 40 MG TABLET PO SCH (21:20)
[2021-04-08] MEDS: MIRTAZAPINE 15 MG TABLET PO SCH (21:20)
[2021-04-08] MEDS: LATANOPROST EYE DROP 0.005% 2.5 ML BOTTLE EACHEYE SCH (21:23)
[2021-04-09] MEDS: IPRATROPIUM NEB FS 0.5 MG/2.5 ML AMPUL.NEB NEB SCH ×6 (03:25→23:18)
[2021-04-09 04:00] VITALS: BP 106/57
--- NOTE | 2021-04-09 06:30 | NUR ---
RN notes In bed, watching TV. Alert and awake, verbally able to communicate needs. Ambulatory but needs assistance to go to the bathroom. On 1lpm O2 via nasal cannula well tolerated. No respiratory distress noted. Breathing even and unlabored. No complaint of pain or discomfort. Patient noted to have episodes of agitation. No significant change of condition. Kept clean and dry. Will endorse to next shift for continuity of care.
[2021-04-09 06:33] LABS: BASOPHILS % (AUTO) 0.3 % (0.0-2.0); EOSINOPHILS % (AUTO) 3.2 % (0.0-6.0); HEMATOCRIT 26 % (33-45); HEMOGLOBIN 8.2 g/dL (11.5-14.8); LYMPHOCYTES # (AUTO) 0.6 /CMM (0.8-4.8); LYMPHOCYTES % (AUTO) 21.1 % (20.0-44.0); MEAN CORPUSCULAR HGB CONC 31 g/dl (31.0-36.0); MEAN CORPUSCULAR VOLUME 90 fL (82-100); MONOCYTES # (AUTO) 0.3 /CMM (0.1-1.30); MONOCYTES % (AUTO) 11.2 % (2.0-12.0); NEUTROPHILS # (AUTO) 1.8 /CMM (1.8-8.9); NEUTROPHILS % (AUTO) 64.2 % (43.0-81.0); PLATELET COUNT (AUTO) 69 /CMM (150-450); RED BLOOD CELL COUNT(AUTO) 2.92 MIL/uL (4.0-5.2); WHITE BLOOD COUNT (AUTO) 2.9 K/uL (4.3-11.0)
[2021-04-09 07:02] LABS: ALBUMIN 2.9 g/dL (3.4-5.0); BILIRUBIN,TOTAL 0.4 mg/dL (0.2-1.0); CALCIUM, SERUM 9.4 mg/dL (8.5-10.1); CREATININE 0.7 mg/dL (0.6-1.3); MAGNESIUM 1.9 mg/dL (1.8-2.4); POTASSIUM 4.2 mmol/L (3.5-5.1); TOTAL PROTEIN, SERUM 6.2 g/dL (6.4-8.2)
[2021-04-09] MEDS: PANTOPRAZOLE 40 MG TABLET.DR PO SCH (07:15)
--- NOTE | 2021-04-09 07:35 | NUR ---
RN NOTE PATIENT IS CURRENTLY IN BED WITH HOB AT SEMI FOWLERS POSITION. PATIENT IS ON 1L NC. PATIENT IS AOX3. VERONICA IV IS PATENT AND INTACT. BED IS LOCKED IN THE LOWEST POSITION, 3 GUARD RAILS RAISED, CALL [place] WITHIN REACH, AND ALL HOSPITAL SAFETY PRECAUTIONS ARE BEING FOLLOWED. WILL CONTINUE TO MONITOR THROUGHOUT SHIFT.
[2021-04-09 08:00] VITALS: BP 107/68
--- NOTE | 2021-04-09 08:30 | NUR ---
RN NOTE DR. AHUJA NOTIFIED OF BP 107/68. OKAY TO HOLD ALL BP MEDS FOR SYSTOLIC LESS THAN 110.
[2021-04-09] MEDS: CALCIUM CITRATE(CITRACAL) /VITAMIN D 1 TAB TABLET PO SCH (08:52)
[2021-04-09] MEDS: VENLAFAXINE 37.5 MG TABLET PO SCH (08:52)
[2021-04-09] MEDS: DOCUSATE SODIUM 100 MG CAPSULE PO SCH ×2 (08:53→16:38)
[2021-04-09] MEDS: CARVEDILOL 12.5 MG TABLET PO SCH ×2 (08:53→16:37)
[2021-04-09] MEDS: ISOSORBIDE DINITRATE (10MG) 10 MG TABLET PO SCH ×2 (08:54→16:37)
[2021-04-09] MEDS: ENSURE ENLIVE 237 ML LIQUID (VANILLA) PO SCH (08:54)
[2021-04-09] MEDS: BENAZEPRIL HCL 10 MG TABLET PO SCH (08:54)
--- NOTE | 2021-04-09 09:41 | NUR ---
RT NOTE: ALERT PATIENT REFUSES 'S ORDER FOR BIPAP AT THIS TIME. PATIENT STATES THAT SHE DOES NOT FEEL COMFORTABLE WITH IT BUT SHE WILL TRY IT AT NIGHT. PATIENT'S RESPIRATIONS ARE EVEN AND UNLABORED. CHARGE NURSE(MATT) AND NOTIFIED. WILL CONTINUE TO MONITOR.
[2021-04-09 16:00] VITALS: BP 132/65
[2021-04-09] MEDS ORDERED: WARFARIN SODIUM 2.5 MG TABLET PO SCH (17:00)
--- NOTE | 2021-04-09 17:23 | NUR ---
RN NOTE HOLDING WARFARIN FOR PLATELETS OF 69.
--- NOTE | 2021-04-09 18:50 | NUR ---
RN NOTE PATIENT IS CURRENTLY IN BED WITH HOB AT SEMI FOWLERS POSITION. PATIENT IS ON 1L NC. PATIENT IS AOX3. VERONICA IV IS PATENT AND INTACT. BED IS LOCKED IN THE LOWEST POSITION, 3 GUARD RAILS RAISED, CALL [place] WITHIN REACH, AND ALL HOSPITAL SAFETY PRECAUTIONS ARE BEING FOLLOWED. PATIENT REMAINED STABLE THROUGHOUT SHIFT. WILL ENDORSE TO METEOROLOGY FACULTY MEMBER RN .
[2021-04-09 20:00] VITALS: BP 146/84
[2021-04-09] MEDS: MIRTAZAPINE 15 MG TABLET PO SCH (20:51)
[2021-04-09] MEDS: ATORVASTATIN 40 MG TABLET PO SCH (20:51)
[2021-04-09] MEDS: LATANOPROST EYE DROP 0.005% 2.5 ML BOTTLE EACHEYE SCH (20:54)
--- NOTE | 2021-04-10 03:45 | NUR ---
RN notes Resting comfortably in bed, alert and awake, verbally able to communicate needs. Ambulatory. On 1 2Lpm O2 via nasal cannula well tolerated. Obeys commands. No distress noted. Breathing even and unlabored. No complaint of pain or discomfort. No significant change of condition. Kept clean and dry. Will endorse to next shift for continuity of care.
[2021-04-10 04:00] VITALS: BP 118/55
[2021-04-10] MEDS: IPRATROPIUM NEB FS 0.5 MG/2.5 ML AMPUL.NEB NEB SCH ×3 (04:15→11:30)
[2021-04-10] MEDS: PANTOPRAZOLE 40 MG TABLET.DR PO SCH ×2 (07:30→07:41)
[2021-04-10] MEDS: CALCIUM CITRATE(CITRACAL) /VITAMIN D 1 TAB TABLET PO SCH (08:33)
[2021-04-10] MEDS: DOCUSATE SODIUM 100 MG CAPSULE PO SCH (08:33)
[2021-04-10] MEDS: ISOSORBIDE DINITRATE (10MG) 10 MG TABLET PO SCH (08:34)
[2021-04-10] MEDS: VENLAFAXINE 37.5 MG TABLET PO SCH (08:34)
[2021-04-10 08:35] VITALS: BP 139/64
[2021-04-10] MEDS: ENSURE ENLIVE 237 ML LIQUID (VANILLA) PO SCH (08:35)
[2021-04-10] MEDS: CARVEDILOL 12.5 MG TABLET PO SCH (08:35)
[2021-04-10] MEDS: BENAZEPRIL HCL 10 MG TABLET PO SCH (08:35)
--- NOTE | 2021-04-10 10:08 | NUR ---
RN NOTE PATIENT REFUSED PICTURES OF SKIN FOR DISCHARGE. BASIN FINISH OPERATOR TIG WELDER AWARE.
--- NOTE | 2021-04-10 11:52 | NUR ---
RN NOTE GAVE REPORT TO CHANA SPENCER AT [facility]. UNABLE TO DETERMINE IF PATIENT RECEIVED PNEUMO VACCINE WITH THEM. STATED THEY WILL GAIN ACCESS TO PATIENT'S FULL RECORDS ON ARRIVAL AND WILL BE ABLE TO ADMINISTER PNEUMO VACCINE IF NEEDED AT [facility].
--- NOTE | 2021-04-10 13:23 | NUR ---
RN NOTE REPORT GIVEN TO WATER SUPPLY TECHNICIAN. PATIENT STABLE AT TIME OF DISCHARGE.
== END 2021-04-10 13:47 | DRG 280 ==
LOC: ER 18:41 → TELE1 21:16 → MEDSG1 04-07 17:40 → TELE1 04-09 09:40 → MEDSG1 04-09 09:43
PROVIDERS: ADMIT Nurse Practitioner Acute Care; ATTEND Internal Medicine
DX: I13.0 Hypertensive heart and chronic kidney disease with heart failure and stage 1 through stage 4 chronic kidney disease, or unspecified chronic kidney disease (principal); I21.4 Non-ST elevation (NSTEMI) myocardial infarction; I50.33 Acute on chronic diastolic (congestive) heart failure; J96.21 Acute and chronic respiratory failure with hypoxia; J96.22 Acute and chronic respiratory failure with hypercapnia; I48.20 Chronic atrial fibrillation, unspecified; J98.11 Atelectasis; E87.4 Mixed disorder of acid-base balance; J90 Pleural effusion, not elsewhere classified; I25.10 Atherosclerotic heart disease of native coronary artery without angina pectoris; Z20.822 Contact with and (suspected) exposure to COVID-19; Z86.73 Personal history of transient ischemic attack (TIA), and cerebral infarction without residual deficits; Z88.8 Allergy status to other drugs, medicaments and biological substances; Z79.01 Long term (current) use of anticoagulants; N18.9 Chronic kidney disease, unspecified; Z79.899 Other long term (current) drug therapy; I70.0 Atherosclerosis of aorta; K21.9 Gastro-esophageal reflux disease without esophagitis; Z96.642 Presence of left artificial hip joint; F32.9 Major depressive disorder, single episode, unspecified; I27.20 Pulmonary hypertension, unspecified; D69.6 Thrombocytopenia, unspecified; E78.5 Hyperlipidemia, unspecified; E86.1 Hypovolemia; H40.9 Unspecified glaucoma; Z87.09 Personal history of other diseases of the respiratory system; Z87.81 Personal history of (healed) traumatic fracture; E66.9 Obesity, unspecified; Z68.27 Body mass index [BMI] 27.0-27.9, adult; D64.9 Anemia, unspecified; I08.1 Rheumatic disorders of both mitral and tricuspid valves
CPT/HCPCS: 36415; 36600; 71045-TC; 71250-TC; 80048-TC; 80053-TC; 80061-TC; 80076-TC; 80162-TC; 81001; 82803-TC; 83735-TC; 83880; 84100-TC; 84484-TC; 85025-TC; 85610-TC; 87081-TC; 93970-TC; 94799-TC; C9803; G0378; G0480; J1940; J3475; J7050; U0003

== ENCOUNTER 2021-06-08 10:09 | Inpatient (IN) | payer MEDICARE, BC ==
[~2021-06-08] VITALS: Ht 177.8 cm; Wt 72.1 kg
--- NOTE | 2021-06-08 10:18 | NUR ---
TO ER BED 1, C/O CHEST PAIN LAST NIGHT BUT PAIN FREE UPON ARRIVAL TO ER, MONITOR ATTACHED, EKG DONE, SEEN BY DR MIRELES, AWAITING FOR MD ORDERS
[2021-06-08 10:37] LABS: EOSINOPHILS % (AUTO) 5.4 % (0.0-6.0); HEMATOCRIT 28 % (33-45); HEMOGLOBIN 8.9 g/dL (11.5-14.8); LYMPHOCYTES # (AUTO) 0.7 K/uL (0.8-4.8); LYMPHOCYTES % (AUTO) 15.1 % (20.0-44.0); MEAN CORPUSCULAR HGB CONC 32 g/dl (31.0-36.0); MEAN CORPUSCULAR VOLUME 87 fL (82-100); MONOCYTES # (AUTO) 0.4 K/uL (0.1-1.30); MONOCYTES % (AUTO) 9.6 % (2.0-12.0); NEUTROPHILS # (AUTO) 3.1 K/uL (1.8-8.9); NEUTROPHILS % (AUTO) 68.9 % (43.0-81.0); PLATELET COUNT (AUTO) 148 K/uL (150-450); RED BLOOD CELL COUNT(AUTO) 3.21 MIL/uL (4.0-5.2); WHITE BLOOD COUNT (AUTO) 4.5 K/uL (4.3-11.0)
[2021-06-08] MEDS ORDERED: ESOM40CA PO (10:40)
[2021-06-08] MEDS ORDERED: LAMO25TA5 PO (10:40)
[2021-06-08] MEDS ORDERED: CARV12.52 PO (10:40)
[2021-06-08] MEDS ORDERED: FISH1CAP16 PO (10:40)
--- NOTE | 2021-06-08 10:44 | NUR ---
MOVE SHEET SUBMITTED AND CALLED FOR TELE BED.
[2021-06-08 10:47] LABS: CALCIUM, SERUM 9.7 mg/dL (8.5-10.1); CREATININE 0.9 mg/dL (0.6-1.3); POTASSIUM 4.3 mmol/L (3.5-5.1)
[2021-06-08 10:59] LABS: ALBUMIN 2.7 g/dL (3.4-5.0); BILIRUBIN,DIRECT 0.1 mg/dL (0.0-0.2); BILIRUBIN,TOTAL 0.3 mg/dL (0.2-1.0); TOTAL PROTEIN, SERUM 6.7 g/dL (6.4-8.2)
--- NOTE | 2021-06-08 11:18 | NUR ---
SPOKE TO DAUGHTER IN LAW, FREDDY AND GAVE UPDATE
--- NOTE | 2021-06-08 13:10 | NUR ---
SPOKE TO DAUGHTER ([phone]) IN LAW, KEWANNA, ABOUT PT BEING ADMITTED AND WAITING FOR BED
--- NOTE | 2021-06-08 14:37 | NUR ---
SPOKE TO YA FOR COVID ANTIGEN SWAB KIT
[2021-06-08] MEDS ORDERED: TRAMADOL HCL 50 MG TABLET PO PRN (15:30)
[2021-06-08] MEDS ORDERED: ACETAMINOPHEN 325 MG TABLET PO PRN (15:30)
[2021-06-08] MEDS ORDERED: MORPHINE SULFATE INJ 2 MG/ML DISP.SYRIN IV PRN (15:30)
[2021-06-08] MEDS ORDERED: TEMAZEPAM 15 MG CAPSULE PO PRN (15:30)
[2021-06-08] MEDS ORDERED: MAG HYDROX/AL HYDROX/SIMETH 30 ML UDC PO PRN (15:30)
[2021-06-08] MEDS ORDERED: Z GUARD REMEDY 2 OZ OINT TP PRN (15:30)
[2021-06-08] MEDS ORDERED: HYDROCODONE/APAP 5/325MG TABLET PO PRN (15:30)
[2021-06-08] MEDS ORDERED: POLYETHYLENE GLYCOL 3350 17 GM POWD.PACK PO PRN (15:30)
[2021-06-08] MEDS ORDERED: MAGNESIUM HYDROXIDE 30 ML UDC PO PRN (15:30)
[2021-06-08] MEDS ORDERED: HOME MED MISCELLANEOUS XX SCH (15:30)
[2021-06-08] MEDS ORDERED: ONDANSETRON HCL/PF 4 MG/2 ML VIAL IVP PRN (15:30)
--- NOTE | 2021-06-08 15:57 | NUR ---
RESTING COMFORTABLY IN BED, WAITING FOR BED ASSIGNMENT
--- NOTE | 2021-06-08 16:07 | NUR ---
PATIENT WILL GO TO 309-2
[2021-06-08] MEDS: CALCIUM CITRATE(CITRACAL) /VITAMIN D 1 TAB TABLET PO SCH (17:00)
--- NOTE | 2021-06-08 17:12 | NUR ---
RN NOTES PATIENT ARRIVED TO UNIT AT ROOM 309-2 VIA GURNEY, ACCOMPANIED BY 2 ER NURSES.
--- NOTE | 2021-06-08 17:34 | NUR ---
REPORT GIVEN TO JANEE OF [facility]. TRANSFERRED PT IN STABLE CONDITION
--- NOTE | 2021-06-08 17:40 | NUR ---
RESILIENT TILE INSTALLER NOTE RECEIVED PATIENT VIA [facility]. PATIENT IS A/O X4. PATIENT IS BREATHING EVENLY AND NONLABORED ON 4LPM VIA NASAL CANNULA. NO SIGNS OF DISTRESS NOTED. PATIENT DOES NOT COMPLAIN AT THIS TIME, OR CHEST PAIN. VITAL SIGNS BP 149/98, HR 77, RR 18, O2 95%. PATIENT'S IV ACCESS NOTED TO BE BLEEDING, IV SITE REMOVED PRESSURE DRESSING APPLIED. NOTIFIED MD GAVE ORDER FOR MIDLINE INSERTION. SKIN INTACT, NO WOUNDS NOTED. PATIENT WAS ORIENTED TO THE ROOM AND HOW TO USE THE CALL LIGHT BELONGINGS ACCOUNTED FOR. SAFETY MEASURES ARE IN PLACE BED LOW LOCKED CALL LIGHT WITHIN REACH. WILL CONTINUE TO MONITOR
[2021-06-08] MEDS: CARVEDILOL 12.5 MG TABLET PO SCH (17:42)
[2021-06-08] MEDS: DOCUSATE SODIUM 100 MG CAPSULE PO SCH (17:42)
[2021-06-08] MEDS: ISOSORBIDE DINITRATE (10MG) 10 MG TABLET PO SCH (17:43)
[2021-06-08] MEDS: LamoTRIgine 25 MG TABLET PO SCH (17:43)
[2021-06-08] MEDS ORDERED: WARFARIN SODIUM 2.5 MG TABLET PO SCH (18:00)
--- NOTE | 2021-06-08 18:26 | NUR ---
CNS CLOSING NOTE NOTE PATIENT RESTING IN BED. PATIENT IS A/O X4. PATIENT IS BREATHING EVENLY AND NONLABORED ON 4LPM VIA NASAL CANNULA. NO SIGNS OF DISTRESS NOTED. PATIENT IS ON TELE MONITOR SHOWING NORMAL SINUS RHYTHM AT THIS TIME. PATIENT DOES NOT COMPLAIN AT THIS TIME, OR CHEST PAIN. IV ACCESS WAS REMOVED, AWAITING MIDLINE. MEDICATIONS GIVEN ORDERED. SAFETY MEASURES ARE IN PLACE BED LOW LOCKED, SIDE RAILS UP X 2. CALL LIGHT WITHIN REACH. WILL ENDORSE TO ONCOMING SHIFT
[2021-06-08 20:00] VITALS: BP 143/63
[2021-06-08] MEDS: DIGOXIN 0.125 MG TABLET PO SCH (20:24)
[2021-06-08] MEDS: MIRTAZAPINE SOLUTAB 15 MG/UDTABLET TAB.RAPDIS PO SCH (21:44)
[2021-06-08] MEDS: ATORVASTATIN 40 MG TABLET PO SCH (21:44)
[2021-06-08] MEDS: LATANOPROST EYE DROP 0.005% 2.5 ML BOTTLE EACHEYE SCH (22:07)
[2021-06-09] VITALS: BP 157/91
[2021-06-09 04:00] VITALS: BP 132/77
[2021-06-09 06:24] LABS: BASOPHILS % (AUTO) 0.4 % (0.0-2.0); EOSINOPHILS % (AUTO) 4.3 % (0.0-6.0); HEMATOCRIT 29 % (33-45); HEMOGLOBIN 9.3 g/dL (11.5-14.8); LYMPHOCYTES # (AUTO) 0.8 K/uL (0.8-4.8); LYMPHOCYTES % (AUTO) 17.3 % (20.0-44.0); MEAN CORPUSCULAR HGB CONC 33 g/dl (31.0-36.0); MEAN CORPUSCULAR VOLUME 87 fL (82-100); MONOCYTES # (AUTO) 0.5 K/uL (0.1-1.30); MONOCYTES % (AUTO) 11.2 % (2.0-12.0); NEUTROPHILS # (AUTO) 3.3 K/uL (1.8-8.9); NEUTROPHILS % (AUTO) 66.8 % (43.0-81.0); PLATELET COUNT (AUTO) 160 K/uL (150-450); RED BLOOD CELL COUNT(AUTO) 3.31 MIL/uL (4.0-5.2); WHITE BLOOD COUNT (AUTO) 4.9 K/uL (4.3-11.0)
--- NOTE | 2021-06-09 06:44 | NUR ---
COPS NOTES AWAKE & RESPONSIVE. NOT IN ANY DISTRESS. NO SOB NOTED. DENIES ANY PAIN OR DISCOMFORT AT THIS TIME. ON TELE AFIB @ 80S WITH IV-ML PATENT & INTACT. MONITORED ACCORDINGLY. CALL LIGHT WITHIN REACH. BED IN LOWEST POSITION. SR UP X 3 WITH BED ALARM ON FOR SAFETY. WILL ENDORSE TO NEXT SHIFT.
[2021-06-09 06:51] LABS: CALCIUM, SERUM 9.8 mg/dL (8.5-10.1); CREATININE 0.7 mg/dL (0.6-1.3); PHOSPHORUS 3.4 mg/dL (2.5-4.9)
--- NOTE | 2021-06-09 07:28 | NUR ---
POLLUTION CONTROL ENGINEER OPENING NOTES RECEIVED PT IN BED AWAKE, A/O X4. ABLE TO VERBALIZED NEEDS, DENIES PAIN OR ANY DISCOMFORTS AT THIS TIME. ON 02 VIA N/C AT 4LPM VIA NASAL CANULA, TOLERATING WELL WITH NO SOB NOTED. VERONICA MIDLINE INTACT, PATENT AND FLUSHES WELL. TELE-MONITOR CURRENTLY SHOWS A-FIB CONTROLLED WITH PVC'S, HR ON THE 80'S, NO C/O OF CARDIAC DISTRESS VOICED AT THIS TIME. SAFETY MEASURES IN PLACE: BED IN LOWEST LOCKED POSITION, HOB ELEVATED, SIDE RAILS UP X2. CALL LIGHT AND BEDSIDE TABLE WITHIN REACH. WILL CONTINUE TO MONITOR PT ACCORDINGLY.
[2021-06-09 08:00] VITALS: BP 119/63
[2021-06-09] MEDS: LamoTRIgine 25 MG TABLET PO SCH ×2 (08:15→16:50)
[2021-06-09] MEDS: DOCUSATE SODIUM 100 MG CAPSULE PO SCH ×2 (08:15→16:50)
[2021-06-09] MEDS: VENLAFAXINE XR 37.5 MG CAP.SR.24H PO SCH (08:15)
[2021-06-09] MEDS: PANTOPRAZOLE 40 MG TABLET.DR PO SCH (08:15)
[2021-06-09] MEDS: BENAZEPRIL HCL 10 MG TABLET PO SCH (08:17)
[2021-06-09] MEDS: ISOSORBIDE DINITRATE (10MG) 10 MG TABLET PO SCH ×2 (08:18→16:49)
[2021-06-09] MEDS: CARVEDILOL 12.5 MG TABLET PO SCH ×2 (08:18→16:51)
[2021-06-09 09:19] LABS: ABG BASE EXCESS 12.7 mmol/L; ABG OXYGEN SATURATION 91.2 % (92.0-98.5); ABG PCO2 64.2 mmHg (35.0-45.0); ABG PH 7.407 (7.350-7.450); ABG PO2 62.8 mmHg (75.0-100.0); AaDO2 119.4 mmHg; MetHb 0.3 % (0.0-1.5); SITE, ABG Right Radial; VENT MODE, BG nasal cannula
[2021-06-09] MEDS: APIXABAN 5 MG TABLET PO SCH ×2 (09:30→16:50)
[2021-06-09] MEDS: CALCIUM CITRATE(CITRACAL) /VITAMIN D 1 TAB TABLET PO SCH ×2 (09:42→16:51)
[2021-06-09] MEDS: FUROSEMIDE 40 MG/4 ML VIAL IV SCH ×2 (09:43→13:42)
--- NOTE | 2021-06-09 12:27 | NUR ---
RN NOTES PT SEEN BY AND EVALUATED BY PHYSICAL THERAPY. PT DEMONSTRATES SAFE GAIT WITH FWW AND IS SAFE TO WALK WITH STAFF SUPERVISION.
[2021-06-09 16:00] VITALS: BP 135/70
[2021-06-09 18:12] LABS: BILIRUBIN,URINE NEGATIVE (NEGATIVE); COLOR,URINE YELLOW (YELLOW); LEUKOCYTE ESTERASE ,URINE NEGATIVE (NEGATIVE); NITRITE, URINE NEGATIVE (NEGATIVE); PH,URINE 7.5 (5.0-8.0); PROTEIN,URINE NEGATIVE (NEGATIVE); UGLUCOSE NEGATIVE (NEGATIVE); UROBILINOGEN,URINE 0.2 EU/dL (0.2)
[2021-06-09 18:21] LABS: BACTERIA,URINE None seen /HPF (None Seen); SQUAMOUS EPITHELIAL CELL,UR 0-2 /HPF (None Seen); WBC,URINE 0-2 /HPF (0-3)
--- NOTE | 2021-06-09 18:36 | NUR ---
MS RN CLOSING NOTES PT IN BED AWAKE AND WATCHING TV AT THIS TIME. A/O X4. ABLE TO VERBALIZED NEEDS. ON 02 VIA N/C AT 3LPM VIA NASAL CANULA, TOLERATING WELL WITH NO SOB NOTED. VERONICA MIDLINE INTACT, PATENT AND FLUSHES WELL. ALL NEEDS AND CARE ATTENDED WELL. SAFETY MEASURES KEPT IN PLACE: BED IN LOWEST LOCKED POSITION WITH SIDE RAILS UP X2. CALL LIGHT AND BEDSIDE TABLE WITHIN EASY REACH OF PT. WILL ENDORSE JAVIER TO RUBBER BELT SPLICER NURSE.
--- NOTE | 2021-06-09 19:37 | NUR ---
MS RN Opening Notes Patient was seen awake resting in bed. Patient's alert and oriented x4. Patient's on 3L of oxygen/minute via nasal cannula with no respiratory distress needed. Patient has a saline lock on his right upper arm gauge #18. Safety measures are kept in place: Bed locked, bed alarm on, side rails up x3, and call light within reach of the patient. Patient's in no acute distress at this time. Will continue to monitor the patient.
[2021-06-09 20:00] VITALS: BP 140/76
[2021-06-09] MEDS: LATANOPROST EYE DROP 0.005% 2.5 ML BOTTLE EACHEYE SCH (21:38)
[2021-06-09] MEDS: MIRTAZAPINE SOLUTAB 15 MG/UDTABLET TAB.RAPDIS PO SCH (21:38)
[2021-06-09] MEDS: ATORVASTATIN 40 MG TABLET PO SCH (21:38)
[2021-06-10 06:09] LABS: BASOPHILS % (AUTO) 0.3 % (0.0-2.0); EOSINOPHILS % (AUTO) 5.2 % (0.0-6.0); HEMATOCRIT 28 % (33-45); HEMOGLOBIN 8.8 g/dL (11.5-14.8); LYMPHOCYTES # (AUTO) 0.8 K/uL (0.8-4.8); LYMPHOCYTES % (AUTO) 16.6 % (20.0-44.0); MEAN CORPUSCULAR HGB CONC 32 g/dl (31.0-36.0); MEAN CORPUSCULAR VOLUME 87 fL (82-100); MONOCYTES # (AUTO) 0.5 K/uL (0.1-1.30); NEUTROPHILS # (AUTO) 3.1 K/uL (1.8-8.9); NEUTROPHILS % (AUTO) 66.9 % (43.0-81.0); PLATELET COUNT (AUTO) 149 K/uL (150-450); RED BLOOD CELL COUNT(AUTO) 3.17 MIL/uL (4.0-5.2); WHITE BLOOD COUNT (AUTO) 4.7 K/uL (4.3-11.0)
[2021-06-10 06:34] LABS: ALBUMIN 2.7 g/dL (3.4-5.0); BILIRUBIN,TOTAL 0.4 mg/dL (0.2-1.0); CALCIUM, SERUM 9.4 mg/dL (8.5-10.1); CREATININE 0.8 mg/dL (0.6-1.3); MAGNESIUM 1.7 mg/dL (1.8-2.4); PHOSPHORUS 3.1 mg/dL (2.5-4.9); POTASSIUM 3.4 mmol/L (3.5-5.1); TOTAL PROTEIN, SERUM 6.7 g/dL (6.4-8.2)
--- NOTE | 2021-06-10 06:41 | NUR ---
MS RN Closing Notes Patient was seen sleeping in bed. Patient's alert and oriented x4. Patient's on 3L of oxygen/minute via nasal cannula with no respiratory distress needed. Patient has a saline lock on her right upper arm gauge #18, which is currently intact, patent, and flushing well. Safety measures are kept in place: Bed locked, bed alarm on, side rails up x3, and call light within reach of the patient. Patient's in no acute distress at this time. Will endorse care to the day shift nurse.
--- NOTE | 2021-06-10 06:58 | NUR ---
MS RN Notes Patient's latest CO2 level was 41. MECHELLE Melo was made aware. No new orders were given. Will endorse to the day shift nurse.
--- NOTE | 2021-06-10 07:40 | NUR ---
MS RN OPENING NOTES RECEIVED PATIENT IN BED, AWAKE, A/O X4. PATIENT ON OXYGEN THERAPY AT 3 LPM VIA NASAL CANNULA; BREATHING EVEN AND UNLABORED, NO SOB PRESENT. NO COMPLAINS OF PAIN AT THIS TIME. VERONICA MIDLINE PRESENT AND INTACT; SL. SAFETY PRECAUTIONS IN PLACE; BED IN LOW POSITION AND LOCKED, RAILS UP X2, CALL LIGHT WITHIN REACH. WILL CONTINUE TO MONITOR PATIENT.
[2021-06-10 08:08] VITALS: BP 142/86
[2021-06-10] MEDS: DOCUSATE SODIUM 100 MG CAPSULE PO SCH ×2 (08:41→17:26)
[2021-06-10] MEDS: POTASSIUM CHLORIDE 20 MEQ TAB.PRT.SR PO SCH ×2 (08:41→09:55)
[2021-06-10] MEDS: CALCIUM CITRATE(CITRACAL) /VITAMIN D 1 TAB TABLET PO SCH ×2 (08:42→17:26)
[2021-06-10] MEDS: PANTOPRAZOLE 40 MG TABLET.DR PO SCH (08:42)
[2021-06-10] MEDS: LamoTRIgine 25 MG TABLET PO SCH ×2 (08:43→17:28)
[2021-06-10] MEDS: VENLAFAXINE XR 37.5 MG CAP.SR.24H PO SCH (08:44)
[2021-06-10] MEDS: CARVEDILOL 12.5 MG TABLET PO SCH ×2 (08:47→17:27)
[2021-06-10] MEDS: DIGOXIN 0.125 MG TABLET PO SCH (08:47)
[2021-06-10] MEDS: BENAZEPRIL HCL 10 MG TABLET PO SCH (08:48)
[2021-06-10] MEDS: ISOSORBIDE DINITRATE (10MG) 10 MG TABLET PO SCH ×2 (08:49→17:27)
[2021-06-10] MEDS: APIXABAN 5 MG TABLET PO SCH ×2 (08:50→16:25)
[2021-06-10] MEDS ORDERED: MAGNESIUM OXIDE 400 MG TABLET PO ONE (09:00)
--- NOTE | 2021-06-10 10:00 | NUR ---
MS RN NOTES PER PATIENTS FAMILY, PATIENT IS ALLERGIC FOR ELIQUIS. FAMILY STATES THAT SHE HAS PROBLEMS WITH MEMORY AND MAY SAY SHE IS NOT ALLERGIC TO ANYTHING. MADE AWARE.
[2021-06-10 17:00] VITALS: BP 162/99
--- NOTE | 2021-06-10 18:40 | NUR ---
MS RN CLOSING NOTES PATIENT REMAINS IN BED, AWAKE, A/O X4. PATIENT ON OXYGEN THERAPY AT 3 LPM VIA NASAL CANNULA; BREATHING EVEN AND UNLABORED, NO SOB PRESENT DURING THE DAY. NO COMPLAINS OF PAIN. VERONICA MIDLINE PRESENT AND INTACT; SL. ALL NEEDS ATTENDED DURING THE SHIFT. SAFETY PRECAUTIONS IN PLACE; BED IN LOW POSITION AND LOCKED, RAILS UP X2, CALL LIGHT WITHIN REACH. WILL ENDORSE TO CUSHION STUFFER NURSE.
[2021-06-10 20:00] VITALS: BP 148/76
--- NOTE | 2021-06-10 20:00 | NUR ---
[place] BRP WITH FWW ASSISTED BY JESSICA. VOIODED FREELY. ALL NEEDS ATTENDED TO CONTINUE.
[2021-06-10] MEDS: MIRTAZAPINE SOLUTAB 15 MG/UDTABLET TAB.RAPDIS PO SCH (22:01)
[2021-06-10] MEDS: ATORVASTATIN 40 MG TABLET PO SCH (22:01)
[2021-06-10] MEDS: LATANOPROST EYE DROP 0.005% 2.5 ML BOTTLE EACHEYE SCH (22:04)
--- NOTE | 2021-06-11 00:48 | NUR ---
MSRN REPORT GIVEN TO RN FOR CONINUITY OF CARE.
--- NOTE | 2021-06-11 06:39 | NUR ---
RN CLOSING NOTES PATIENT SLEEP IN BED COMFORTABLY, AROUSABLE TO STIMULI, BED IN LOW POSITION, CALL LIGHTS WITHIN REACH, NO COMPLAIN OF PAIN AND DISCOMFORT, A/OX4 AMBULATORY WITH WALKER, WITH VERONICA MIDLINE #18 SL ON BRP , PATIENT KEPT CLEAN AND DRY, ALL NEEDS MET, ENDORSE TO INCOMING SHIFT.
[2021-06-11 06:47] LABS: CALCIUM, SERUM 9.5 mg/dL (8.5-10.1); CREATININE 0.7 mg/dL (0.6-1.3); POTASSIUM 3.8 mmol/L (3.5-5.1)
[2021-06-11] MEDS: PANTOPRAZOLE 40 MG TABLET.DR PO SCH (07:30)
--- NOTE | 2021-06-11 07:40 | NUR ---
MS/RN OPENING NOTES RECEIVED PATIENT ON BED AWAKE ALERT AND ORIENTED X 4. PATIENT IS ON 3L OXYGEN SATURATING WELL. PATIENT IN NO APPARENT RESPIRATORY DISTRESS NOTED. WELL CONTINUE TO MONITOR.
[2021-06-11 08:00] VITALS: BP 141/97
[2021-06-11] MEDS: CALCIUM CITRATE(CITRACAL) /VITAMIN D 1 TAB TABLET PO SCH ×2 (09:00→17:00)
[2021-06-11] MEDS: BENAZEPRIL HCL 10 MG TABLET PO SCH (09:01)
[2021-06-11] MEDS: VENLAFAXINE XR 37.5 MG CAP.SR.24H PO SCH (09:02)
[2021-06-11] MEDS: DOCUSATE SODIUM 100 MG CAPSULE PO SCH ×2 (09:02→16:50)
[2021-06-11] MEDS: ISOSORBIDE DINITRATE (10MG) 10 MG TABLET PO SCH ×2 (09:02→16:51)
[2021-06-11] MEDS: LamoTRIgine 25 MG TABLET PO SCH ×2 (09:03→16:55)
[2021-06-11] MEDS: CARVEDILOL 12.5 MG TABLET PO SCH ×2 (09:03→16:55)
[2021-06-11 16:00] VITALS: BP 124/93
[2021-06-11] MEDS ORDERED: WARFARIN SODIUM 5 MG TABLET PO SCH ×2 (17:00→17:37)
--- NOTE | 2021-06-11 18:55 | NUR ---
MS/RN CLOSING NOTES PATIENT IS ON BED AWAKE ALERT AND ORIENTED X 4. PATIENT IS ON 3 L OXYGEN VIA NASAL CANNULA SATURATION 94%. PATIENT IN NO APPARENT RESPIRATORY DISTRESS NOTED. NO COMPLAINED OF PAIN NOTED AT THIS TIME. IV ACCESS AT RIGHT UPPER MIDLINE # 18 G PATENT AND INTACT. SEEN AND EXAMINED BY MD WITH ORDERS MADE AND CARRIED OUT. ALL DUE MEDICATIONS WAS GIVEN. SAFETY PRECAUTIONS WAS IN PLACED. SIDE RAILS UP X2. CALL LIGHT WITHIN REACH. WILL ENDORSED TO SLIDE FORMING MACHINE OPERATOR FOR JAVIER.
--- NOTE | 2021-06-11 19:39 | NUR ---
MS RN NOTES PATIENT IN BED. A/OX4. NO S/S OF APPARENT DISTRESS TOLERATING 2LPM OXYGEN VIA NC. NO C/O PAIN AT THIS TIME. NO FLUIDS RUNNING AT THIS TIME. BLE SWELLING NOTED. SAFETY IN PLACE. NO NEEDS AT THIS TIME. WILL CONTINUE TO MONITOR.
[2021-06-11 20:00] VITALS: BP_SYST 134; BP_SYST 136; BP_DIAS 61; BP_DIAS 66
[2021-06-11] MEDS: LATANOPROST EYE DROP 0.005% 2.5 ML BOTTLE EACHEYE SCH (21:58)
[2021-06-11] MEDS: ATORVASTATIN 40 MG TABLET PO SCH (21:58)
[2021-06-11] MEDS: MIRTAZAPINE SOLUTAB 15 MG/UDTABLET TAB.RAPDIS PO SCH (21:59)
--- NOTE | 2021-06-12 06:12 | NUR ---
MS RN CLOSING NOTE PATIENT IN BED. A/OX4. NO S/S OF APPARENT DISTRESS, TOLERATING 3LPM OXYGEN VIA NC. NO C/O PAIN AT THIS TIME. ALL NEEDS ATTENDED. ALL SCHED MEDS ADMINISTERED. SAFETY KEPT IN PLACE THE WHOLE SHIFT: BED IN LOWEST, LOCKED POSITION; HOB IN SEMI-FOWLERS; CALL LIGHT WITHIN REACH. NO SIGNIFICANT CHANGE SINCE LAST SHIFT. WILL ENDORSE CARE TO MORNING SHIFT RN.
[2021-06-12] MEDS: PANTOPRAZOLE 40 MG TABLET.DR PO SCH (07:37)
--- NOTE | 2021-06-12 07:42 | NUR ---
MS/RN OPENING NOTES RECEIVED PATIENT ON BED SLEEPING, EASILY AWAKEN BY NAME AND LIGHT TOUCH, ALERT AND ORIENTED X 4. PATIENT IS ON 3L OXYGEN SATURATING WELL. PATIENT IN NO APPARENT RESPIRATORY DISTRESS NOTED. WELL CONTINUE TO MONITOR.
[2021-06-12 08:11] VITALS: BP 136/88
[2021-06-12] MEDS: BENAZEPRIL HCL 10 MG TABLET PO SCH (08:18)
[2021-06-12 08:19] VITALS: BP 136/88
[2021-06-12] MEDS: CARVEDILOL 12.5 MG TABLET PO SCH (08:19)
[2021-06-12] MEDS: ISOSORBIDE DINITRATE (10MG) 10 MG TABLET PO SCH (08:19)
[2021-06-12] MEDS: DOCUSATE SODIUM 100 MG CAPSULE PO SCH (08:19)
[2021-06-12] MEDS: VENLAFAXINE XR 37.5 MG CAP.SR.24H PO SCH (08:19)
[2021-06-12] MEDS: LamoTRIgine 25 MG TABLET PO SCH (08:20)
[2021-06-12] MEDS: CALCIUM CITRATE(CITRACAL) /VITAMIN D 1 TAB TABLET PO SCH (08:23)
--- NOTE | 2021-06-12 12:27 | NUR ---
RN NOTES PATIENT IS ALERT AND ORIENTED X4. PATIENT IS ON 3L OXYGEN VIA NASAL CANNULA. PATIENT IN NO APPARENT RESPIRATORY DISTRESS NOTED. NO COMPLAINED OF PAIN NOTED. SEEN AND EXAMINED BY MD WITH ORDERS MADE AND CARRIED OUT. ALL DUE MEDICATIONS WAS GIVEN. DISCHARGED INSTRUCTIONS WAS GIVEN AND PATIENT VERBALIZED UNDERSTANDING. PATIENT LEFT THE HOSPITAL IN MEDICALLY STABLE CONDITION [employer] [facility] BY 2 EMT VIA AMBULANCE.
[2021-06-12] MEDS ORDERED: WARFARIN SODIUM 2.5 MG TABLET PO SCH (17:00)
== END 2021-06-12 12:01 | disposition home or self-care (01) | DRG 205 ==
LOC: ER 10:16 → TELE 16:44 → MED 06-09 15:54
PROVIDERS: ADMIT Nurse Practitioner Acute Care; ATTEND Nurse Practitioner Acute Care
PROC: 05HB33Z Insertion of Infusion Device into Right Basilic Vein, Percutaneous Approach (ICD-10-PCS; principal; 2021-06-08)
PROC: 05HB33Z Insertion of Infusion Device into Right Basilic Vein, Percutaneous Approach (ICD-10-PCS; 2021-06-08)
DX: M94.0 Chondrocostal junction syndrome [Tietze] (principal); J96.21 Acute and chronic respiratory failure with hypoxia; I50.31 Acute diastolic (congestive) heart failure; J96.22 Acute and chronic respiratory failure with hypercapnia; I48.20 Chronic atrial fibrillation, unspecified; E44.0 Moderate protein-calorie malnutrition; I11.0 Hypertensive heart disease with heart failure; R79.1 Abnormal coagulation profile; Z20.822 Contact with and (suspected) exposure to COVID-19; Z86.73 Personal history of transient ischemic attack (TIA), and cerebral infarction without residual deficits; Z88.8 Allergy status to other drugs, medicaments and biological substances; Z79.01 Long term (current) use of anticoagulants; Z79.899 Other long term (current) drug therapy; E78.5 Hyperlipidemia, unspecified; D64.9 Anemia, unspecified; F32.9 Major depressive disorder, single episode, unspecified; H40.9 Unspecified glaucoma; Z96.642 Presence of left artificial hip joint; Z87.81 Personal history of (healed) traumatic fracture; I25.10 Atherosclerotic heart disease of native coronary artery without angina pectoris; E87.6 Hypokalemia; I27.81 Cor pulmonale (chronic); R60.1 Generalized edema; E83.42 Hypomagnesemia; I27.29 Other secondary pulmonary hypertension; Z87.09 Personal history of other diseases of the respiratory system
CPT/HCPCS: 36410; 36415; 36600; 71045-TC; 71250-TC; 80048-TC; 80053-TC; 80061-TC; 80076-TC; 80162-TC; 81001; 82803-TC; 83735-TC; 83880; 84100-TC; 84484-TC; 85025-TC; 85610-TC; 85730-TC; 87081-TC; 93970-TC; 97116-TC; 97530-TC; C9803; G0378; J1940; J7030